=== PATIENT | female | born 1930 | race Caucasian/White ===

== ENCOUNTER 2017-08-22 10:49 | Emergency (ER) | payer MEDICARE ==
[~2017-08-22] VITALS: Ht 157.5 cm; Wt 56.0 kg
[~2017-08-22 10:49] MED LIST: ALEN70 PO; ALLO100T PO; ASPI81TA82 PO; BENEPOW5 PO; CALTTAB2 PO; CENTTAB9 PO; CHLO2TAB PO; FEXO180T PO; FISH1000 PO; FURO20TA PO; LEVO.1 PO; POTA25PA2 PO; PRESCAP5 PO; REST0.05 EACH EYE; VITA-13 PO; VITA10004 PO
[2017-08-22 11:03] VITALS: BP 168/72; PULSE 110; RESP 18; TEMP 99.9; O2SAT 98
--- NOTE | 2017-08-22 12:32 | PD ---
HPI Chief Complaint: Fever Time Seen by Provider: 12:29 Travel History International Travel<30 days: No Contact w/Intl Traveler<30days: No Traveled to known affect area: No History of Present Illness HPI This is an 87-year-old female with history of CLL who presents for evaluation of fevers and chills. Symptoms started this morning. She reports a maximum temperature of 101 this morning. She reports patchy redness to the lower extremities as well. She denies cough, congestion, shortness of breath, chest pain, abdominal pain, nausea, vomiting, diarrhea, constipation. She reports that she has had an excellent appetite. Her oncologist is Dr. Del Rosario. She is currently on weekly treatments of Rituxan which she last received 2 days ago. In addition she has a history of chronic kidney disease, TIA, hypertension , hypothyroidism, osteoarthritis, osteoporosis. PFSH Past Medical History Arthritis: Yes Cancer: Yes (LEUKEMIA) Cardiovascular Problems: Yes Chemotherapy: No Cerebrovascular Accident: Yes (TIA) Endocrine: Yes Genitourinary: No Immune Disorder: No Musculoskeletal: Yes Neurologic: Yes Psychiatric: No Reproductive: No Respiratory: No Radiation Therapy: No Thyroid Disease: Yes Past Surgical History Abdominal Surgery: Yes (LAP ROSY) Eye Surgery: Yes (RIGHT EYE CATARACT) Gynecologic Surgery: Yes (HYSTERECTOMY) Social History Tobacco Use: No Substance Use: No Allergies-Medications (Allergen,Severity, Reaction): Coded Allergies: penicillin G (Unverified Allergy, Severe, HIVES, SWELLING, 08/22/17) Reported Meds & Prescriptions Reported Meds & Active Scripts Active Levaquin (Levofloxacin) 500 Mg Tablet 500 Mg PO DAILY 6 Days Reported Acyclovir 200 Mg Cap 200 Mg PO DAILY Magnesium Oxide 250 Mg Tab 250 Mg PO DAILY Restasis Opth (Cyclosporine Opth) 0.05% Emul 1 Drop EACH EYE BID Miralax Powder (Polyethylene Glycol 3350 Powder) 17 Gm Powd 17 Gm PO HS Mix and dissolve one measuring cap-ful (17 grams) in water or juice. Lutein 20 Mg Cap 20 Mg PO DAILY Mucinex DM (Dextromethorphan-Guaifenesin) 30-600 Mg Tab 1 Tab PO BID PRN Fish Oil + D3 (Fish Oil-Cholecalciferol) 1,200-1,000 Mg-Unit Cap 1 Cap PO DAILY Florastor (Saccharomyces Boulardii) 250 Mg Cap 250 Mg PO DAILY Proair Hfa 8.5 GM Inh (Albuterol Sulfate) 90 Mcg/Act Aer 2 Puff INH Q4HR 108 mcg/actuation Metronidazole Topical 1 % Gel 1 Applic TOPICAL DAILY Flonase Nasal [place] (Fluticasone Nasal [place]) 50 Mcg/Act [place] 50 Mcg EACH NARE DAILY Mapap (Acetaminophen) 325 Mg Tab 650 Mg PO Q6HR PRN Klor-Con 10 (Potassium Chloride) 10 Meq Tab 10 Meq PO BID Furosemide 20 Mg Tab 20 Mg PO DAILY Synthroid (Levothyroxine Sodium) 100 Mcg Tab 100 Mcg PO DAILY Montelukast (Montelukast Sodium) 10 Mg Tab 10 Mg PO HS Duoneb (Ipratropium-Albuterol Neb) 0.5-2.5 Mg/3 Ml Neb 1 Nebule INH Q6HR Allopurinol 100 Mg Tab 100 Mg PO DAILY Ferrous Sulfate 325 Mg (65 Mg Iron) Tablet 325 Mg PO DAILY Alendronate (Alendronate Sodium) 70 Mg Tab 70 Mg PO Q7D Amlodipine (Amlodipine Besylate) 2.5 Mg Tab 2.5 Mg PO DAILY Review of Systems Except as stated in HPI: all other systems reviewed are Neg Physical Exam Narrative GENERAL: Pleasant well-developed well-nourished female no acute distress. SKIN: Warm and dry. Areas of ecchymosis/purpura noted to the lower extremities , right greater than left. Small skin tear to the anterior proximal right green. HEAD: Atraumatic. Normocephalic. EYES: Pupils equal and round. No scleral icterus. No injection or drainage. ENT: No nasal bleeding or discharge. Mucous membranes pink and moist. NECK: Trachea midline. No JVD. CARDIOVASCULAR: Regular rate and rhythm. No murmur appreciated. RESPIRATORY: No accessory muscle use. Clear to auscultation. Breath sounds equal bilaterally. GASTROINTESTINAL: Abdomen soft, non-tender, nondistended. Hepatic and splenic margins not palpable. MUSCULOSKELETAL: No obvious deformities. No clubbing. No cyanosis. No edema. NEUROLOGICAL: Awake and alert. No obvious cranial nerve deficits. Motor grossly within normal limits. Normal speech. PSYCHIATRIC: Appropriate mood and affect; insight and judgment normal. Data Data Last Documented VS Vital Signs Date Time Temp Pulse Resp B/P (MAP) Pulse Ox O2 Delivery O2 Flow Rate FiO2 08/22/17 13:40 107 20 131/61 (84) 98 Room Air 08/22/17 11:03 99.9 Orders Orders Sepsis Workup Initiated (08/22/17 ) Complete Blood Count With Diff (08/22/17 12:29) Comprehensive Metabolic Panel (08/22/17 12:29) Prothrombin Time / Inr (Pt) (08/22/17 12:29) Act Partial Throm Time (Ptt) (08/22/17 12:29) Lactic Acid Sepsis Protocol (08/22/17 12:29) Magnesium (Mg) (08/22/17 12:29) Urinalysis - C+S If Indicated (08/22/17 12:29) Blood Culture (08/22/17 12:29) Chest, Single Ap (08/22/17 12:29) Ecg Monitoring (08/22/17 12:29) Iv Access Insert/Monitor (08/22/17 12:29) Oximetry (08/22/17 12:29) Oxygen Administration (08/22/17 12:29) Sodium Chlor 0.9% 1000 Ml Inj (Ns 1000 M (08/22/17 12:37) Urine Culture (08/22/17 14:30) Ed Discharge Order (08/22/17 14:58) Levofloxacin (Levaquin) (08/22/17 15:00) Labs Laboratory Tests Test 08/22/17 12:45 08/22/17 14:30 White Blood Count 10.2 TH/MM3 Red Blood Count 3.40 MIL/MM3 Hemoglobin 11.9 GM/DL Hematocrit 35.2 % Mean Corpuscular Volume 103.7 FL Mean Corpuscular Hemoglobin 35.1 PG Mean Corpuscular Hemoglobin Concent 33.8 % Red Cell Distribution Width 17.8 % Platelet Count 41 TH/MM3 Mean Platelet Volume 8.9 FL Neutrophils (%) (Auto) 29.0 % Lymphocytes (%) (Auto) 65.1 % Monocytes (%) (Auto) 5.1 % Eosinophils (%) (Auto) 0.1 % Basophils (%) (Auto) 0.7 % Neutrophils # (Auto) 2.9 TH/MM3 Lymphocytes # (Auto) 6.6 TH/MM3 Monocytes # (Auto) 0.5 TH/MM3 Eosinophils # (Auto) 0.0 TH/MM3 Basophils # (Auto) 0.1 TH/MM3 CBC Comment AUTO DIFF Differential Total Cells Counted 100 Neutrophils % (Manual) 30 % Lymphocytes % 66 % Monocytes % 2 % Eosinophils % 1 % Neutrophils # (Manual) 3.1 TH/MM3 Differential Comment FINAL DIFF MANUAL Plasma Cells 1 % Platelet Estimate LOW Platelet Morphology Comment NORMAL Prothrombin Time 10.1 SEC Prothromb Time International Ratio 1.0 RATIO Activated Partial Thromboplast Time 19.6 SEC Blood Urea Nitrogen 21 MG/DL Creatinine 0.93 MG/DL Random Glucose 79 MG/DL Total Protein 6.8 GM/DL Albumin 3.1 GM/DL Calcium Level 8.4 MG/DL Magnesium Level 2.3 MG/DL Alkaline Phosphatase 87 U/L Aspartate Amino Transf (AST/SGOT) 21 U/L Alanine Aminotransferase (ALT/SGPT) 43 U/L Total Bilirubin 0.7 MG/DL Sodium Level 138 MEQ/L Potassium Level 4.6 MEQ/L Chloride Level 102 MEQ/L Carbon Dioxide Level 28.5 MEQ/L Anion Gap 8 MEQ/L Estimat Glomerular Filtration Rate 57 ML/MIN Lactic Acid Level 1.5 mmol/L Urine Color LIGHT-YELLOW Urine Turbidity CLEAR Urine pH 6.5 Urine Specific [place] 1.011 Urine Protein TRACE mg/dL Urine Glucose (UA) NEG mg/dL Urine Ketones NEG mg/dL Urine Occult Blood TRACE Urine Nitrite NEG Urine Bilirubin NEG Urine Urobilinogen LESS THAN 2.0 MG/DL Urine Leukocyte Esterase TRACE Urine RBC 2 /hpf Urine WBC 8 /hpf Urine Mucus FEW /lpf Microscopic Urinalysis Comment CATH-CULTURE IND MDM Medical Decision Making Medical Screen Exam Complete: Yes Emergency Medical Condition: Yes Medical Record Reviewed: Yes Differential Diagnosis Neutropenic fever, pneumonia, bacteremia, medication side effect, cellulitis, meningitis Narrative Course 87-year-old female with history of CLL on Rituxan presents with 1 day history of fever. She appears quite well and feels well. She does have ecchymosis on her lower extremities, right greater than left. She has no petechiae. She has no meningeal signs. Plan is for lab work, blood cultures. CBC reveals a WBC count of 10.2, platelet count of 41, 65% lymphocytes. CMP reveals a BUN of 21. Lactic acid is 1.5. Chest x-ray reveals mild compensated cardiomegaly otherwise unremarkable. The case was discussed with her oncologist Dr. Del Rosario reports improvement in her platelet count from last week when her platelet count was 24. He recommends oral Levaquin 500 mg for 1 week and he will follow-up with her next week. Discussed this with the patient who is agreeable. Diagnosis Primary Impression: Fever Additional Impression: Thrombocytopenia Referrals: Jacob Del Rosario MD Additional Instructions: Follow-up with Dr. Del Rosario next Sunday as scheduled. Medication as prescribed. Return for any acutely new or worsening symptoms. Med/Other Pt SpecificInfo: Prescription(s) given Scripts Levofloxacin (Levaquin) 500 Mg Tablet 500 MG PO DAILY for Infection for 6 Days, #6 TAB 0 Refills Prov: Cj Flores MD 08/22/17 Disposition: 01 DISCHARGE HOME Condition: Stable Alonso Eldridge Aug 22, 2017 12:32
[2017-08-22] MEDS ORDERED: SODIUM CHLOR 0.9% 1000 ML INJ 1,000 ML IV SCH (12:37)
[2017-08-22] MEDS ORDERED: LEVO.1 PO (13:09)
[2017-08-22] MEDS ORDERED: KLOR10TA PO (13:09)
[2017-08-22] MEDS ORDERED: ALLO100T PO (13:09)
[2017-08-22] MEDS ORDERED: FISHCAP4 PO (13:09)
[2017-08-22] MEDS ORDERED: HUMIBIDDM PO (13:09)
[2017-08-22] MEDS ORDERED: REST0.05 EACH EYE (13:09)
[2017-08-22] MEDS ORDERED: ALBUAER3 INH (13:09)
[2017-08-22] MEDS ORDERED: AMLO2.5T PO (13:09)
[2017-08-22] MEDS ORDERED: ACYC200C66 PO (13:09)
[2017-08-22] MEDS ORDERED: LUTE20CA PO (13:09)
[2017-08-22] MEDS ORDERED: MONT10TA4 PO (13:09)
[2017-08-22] MEDS ORDERED: IPRASOL INH (13:09)
[2017-08-22] MEDS ORDERED: FERR325T18 PO (13:09)
[2017-08-22] MEDS ORDERED: MAPA325T PO (13:09)
[2017-08-22] MEDS ORDERED: METR28.4 TOPICAL (13:09)
[2017-08-22] MEDS ORDERED: MAGN250T11 PO (13:09)
[2017-08-22] MEDS ORDERED: FURO20TA PO (13:09)
[2017-08-22] MEDS ORDERED: MIRA3350 PO (13:09)
[2017-08-22] MEDS ORDERED: FLOR250C PO (13:09)
[2017-08-22] MEDS ORDERED: FLUT1SPR5 EACH NARE (13:09)
[2017-08-22] MEDS ORDERED: ALEN1TAB48 PO (13:09)
[2017-08-22 13:10] VITALS: O2SAT 97
[2017-08-22 13:10] LABS: AUTOMATED NEUTROPHIL # 2.9 TH/MM3 (1.8-7.7); BASOPHIL # 0.1 TH/MM3 (0-0.2); BASOPHIL % 0.7 % (0.0-2.0); EOSINOPHIL % 0.1 % (0.0-4.0); HEMATOCRIT 35.2 % (35.0-46.0); HEMOGLOBIN 11.9 GM/DL (11.6-15.3); LYMPH % 65.1 % (9.0-44.0); LYMPHOCYTE # 6.6 TH/MM3 (1.0-4.8); MEAN CELL VOLUME 103.7 FL (80.0-100.0); MEAN CORPUSCULAR HEMOGLOBIN 35.1 PG (27.0-34.0); MEAN CORPUSCULAR HGB CONC 33.8 % (32.0-36.0); MEAN PLATELET VOLUME 8.9 FL (7.0-11.0); MONO % 5.1 % (0.0-8.0); MONOCYTE # 0.5 TH/MM3 (0-0.9); PLATELET COUNT 41 TH/MM3 (150-450); RED CELL DISTRIBUTION WIDTH 17.8 % (11.6-17.2); WHITE BLOOD COUNT 10.2 TH/MM3 (4.0-11.0)
[2017-08-22 13:18] LABS: PROTHROMBIN TIME - PATIENT 10.1 SEC (9.8-11.6)
--- NOTE | 2017-08-22 13:38 | RADRPT ---
EXAM DATE/TIME: 08/22/2017 12:50 [facility] COMPARISON: No previous studies available for comparison. INDICATIONS : Shortness of breath. MEDICAL HISTORY : None. SURGICAL HISTORY : None. ENCOUNTER: Initial ACUITY: 1 day PAIN SCORE: 0/10 LOCATION: Bilateral chest FINDINGS: A single view of the chest demonstrates the lungs to be symmetrically aerated without evidence of mas s, infiltrate or effusion. Mild compensated cardiomegaly Osseous structures are intact. CONCLUSION: Mild compensated cardiomegaly, no overt failure. Bernabe Alford MD FACR on August 22, 2017 at 13:35 Board Certified Radiologist. This report was verified electronically.
[2017-08-22 13:40] VITALS: BP 131/61; PULSE 107; RESP 20; O2SAT 98
[2017-08-22 13:42] LABS: ALKALINE PHOSPHATASE 87 U/L (45-117); TOTAL BILIRUBIN ADULT 0.7 MG/DL (0.2-1.0); TOTAL PROTEIN 6.8 GM/DL (6.4-8.2)
[2017-08-22 13:46] LABS: ALBUMIN 3.1 GM/DL (3.4-5.0); ALT (GPT) 43 U/L (10-53); AST (GOT) 21 U/L (15-37); BICARBONATE 28.5 MEQ/L (21.0-32.0); BLOOD UREA NITROGEN 21 MG/DL (7-18); CALCIUM 8.4 MG/DL (8.5-10.1); CHLORIDE 102 MEQ/L (98-107); CREATININE 0.93 MG/DL (0.50-1.00); GLOMERULAR FILTRATION RATE 57 ML/MIN (>89); GLUCOSE,RANDOM 79 MG/DL (74-106); MAGNESIUM 2.3 MG/DL (1.5-2.5); SODIUM (NA) 138 MEQ/L (136-145)
[2017-08-22 13:49] LABS: LYMPHOCYTES 66 % (9-44); MONOCYTES 2 % (0-8); NEUTROPHIL # MANUAL DIFF 3.1 TH/MM3 (1.8-7.7); PLASMA CELLS 1 % (0-0); POLYS (SEG NEUTROPHILS) 30 % (16-70)
[2017-08-22 14:44] LABS: BILIRUBIN, URINE NEG (NEG); BLOOD, URINE TRACE (NEG); GLUCOSE,URINE NEG (NEG); KETONE, URINE NEG (NEG); MUCUS URINE FEW /lpf (OCC); NITRITE,URINE NEG (NEG); PH, URINE 6.5 (5.0-8.5); URINE COLOR LIGHT-YELLOW (YELLW/STRAW); URINE LEUKOCYTE ESTERASE TRACE (NEG)
[2017-08-22] MEDS ORDERED: LEVA500T33 PO (14:59)
[2017-08-22] MEDS ORDERED: LEVOFLOXACIN 500 MG TAB PO ONE (15:00)
== END 2017-08-22 15:40 | disposition home or self-care (01) ==
LOC: NEPC 10:49
DX: R50.9 Fever, unspecified (principal); D69.6 Thrombocytopenia, unspecified; B96.20 Unspecified Escherichia coli [E. coli] as the cause of diseases classified elsewhere; C91.10 Chronic lymphocytic leukemia of B-cell type not having achieved remission; I51.7 Cardiomegaly; I12.9 Hypertensive chronic kidney disease with stage 1 through stage 4 chronic kidney disease, or unspecified chronic kidney disease; N18.9 Chronic kidney disease, unspecified; E03.9 Hypothyroidism, unspecified; Z86.73 Personal history of transient ischemic attack (TIA), and cerebral infarction without residual deficits
CPT/HCPCS: 71045; 80053; 81001; 83605; 83735; 85007; 85027; 85610; 85730; 87040; 87077; 87086; 87186; 99284; J7030

== ENCOUNTER 2017-10-05 10:33 | Inpatient (IN) | payer MEDICARE ==
[2017-10-05] VITALS (11 sets, daily range): BP systolic 114–170; BP diastolic 54–75; PULSE 89–108; RESP 19–34; TEMP 98–100.9; O2SAT 85–100
[~2017-10-05] VITALS: Ht 160 cm; Wt 54.2 kg
[2017-10-05] MEDS: SODIUM CHLOR 0.9% 1000 ML INJ 1,000 ML IV SCH ×3 (00:39→13:27)
[~2017-10-05 10:33] MED LIST changes: +ACYC200C66 PO; +ALBUAER3 INH; +ALEN1TAB48 PO; -ALEN70 PO; +AMLO2.5T PO; -ASPI81TA82 PO; -BENEPOW5 PO; -CALTTAB2 PO; -CENTTAB9 PO; -CHLO2TAB PO; +FERR325T18 PO; -FEXO180T PO; -FISH1000 PO; +FISHCAP4 PO; +FLOR250C PO; +FLUT1SPR5 EACH NARE; +HUMIBIDDM PO; +IPRASOL INH; +KLOR10TA PO; +LEVA500T33 PO; +LUTE20CA PO; +MAGN250T11 PO; +MAPA325T PO; +METR28.4 TOPICAL; +MIRA3350 PO; +MONT10TA4 PO; -POTA25PA2 PO; -PRESCAP5 PO; -VITA-13 PO; -VITA10004 PO
[2017-10-05] MEDS ORDERED: SODIUM CHLORIDE 0.9% FLUSH 10 ML FLUSH IVF PRN (11:15)
--- NOTE | 2017-10-05 11:24 | RADRPT ---
EXAM DATE: 10/05/2017 11:17 AM EDT AGE/SEX: 87 years / Female INDICATIONS: Short of breath, fever CLINICAL DATA: This is the patient's initial encounter. Patient reports that signs and symptoms have been present for 1 day and indicates a pain score of 0/10. MEDICAL/SURGICAL HISTORY: . CLL Cancer Just started chemotherapy None. COMPARISON: [facility] – [place], CHEST SINGLE AP, 08/22/2017. . FINDINGS: Diffuse bilateral airspace disease, worse on the left than the right primarily perihilar in distribut ion. No evidence of effusion. Cardiac contours are grossly stable. CONCLUSION: Bilateral infiltrates. Electronically signed by: Miguel Raygoza MD 10/05/2017 11:23 AM EDT
--- NOTE | 2017-10-05 11:42 | PD ---
HPI Chief Complaint: Respiratory Symptoms Time Seen by Provider: 11:05 Travel History International Travel<30 days: No Contact w/Intl Traveler<30days: No Traveled to known affect area: No History of Present Illness HPI The patient is a 87-year-old female who presents to the emergency department via private vehicle for shortness of breath of one weeks duration. The patient notes 1 week of shortness of breath, progressing, without any new cough, chest pain, or chest tightness. The patient does note her symptoms are slightly worse with exertion. She denies any orthopnea or paroxysmal nocturnal dyspnea. The patient denies any history of tobacco use, however, does state she was living with a smoker. She denies any known history of COPD, CHF, or pulmonary embolism/DVT. The patient is currently being treated for CLL by her senior php web developer, Dr. Del Rosario, with oral chemotherapy. The patient denies any significant lower extremity edema. Symptoms are moderate. She denies any current fever, chills, or sweats. PFSH Past Medical History Arthritis: Yes Cancer: Yes (LEUKEMIA) Cardiovascular Problems: Yes Chemotherapy: No Cerebrovascular Accident: Yes (TIA) Diminished Hearing: No Endocrine: Yes Genitourinary: No Hypertension: Yes Immune Disorder: No Musculoskeletal: Yes Neurologic: Yes Psychiatric: No Reproductive: No Respiratory: No Radiation Therapy: No Thyroid Disease: Yes Past Surgical History Abdominal Surgery: Yes (LAP ROSY) Cholecystectomy: Yes Eye Surgery: Yes (RIGHT EYE CATARACT) Gynecologic Surgery: Yes (HYSTERECTOMY) Hysterectomy: Yes Other Surgery: Yes (carotid artery endardectomy) Social History Alcohol Use: No Tobacco Use: No Substance Use: No Allergies-Medications (Allergen,Severity, Reaction): Coded Allergies: penicillin G (Unverified Allergy, Severe, HIVES, SWELLING, 10/05/17) Reported Meds & Prescriptions Reported Meds & Active Scripts Active Reported Restasis Opth (Cyclosporine Opth) 0.05% Emul 1 Drop EACH EYE BID Lutein 20 Mg Cap 20 Mg PO DAILY Fish Oil + D3 (Fish Oil-Cholecalciferol) 1,200-1,000 Mg-Unit Cap 1 Cap PO DAILY Proair Hfa 8.5 GM Inh (Albuterol Sulfate) 90 Mcg/Act Aer 2 Puff INH Q4HR PRN 108 mcg/actuation Flonase Nasal [place] (Fluticasone Nasal [place]) 50 Mcg/Act [place] 50 Mcg EACH NARE DAILY Mapap (Acetaminophen) 325 Mg Tab 650 Mg PO Q6HR PRN Klor-Con 10 (Potassium Chloride) 10 Meq Tab 10 Meq PO BID Furosemide 20 Mg Tab 20 Mg PO DAILY Synthroid (Levothyroxine Sodium) 100 Mcg Tab 100 Mcg PO DAILY Montelukast (Montelukast Sodium) 10 Mg Tab 10 Mg PO HS Allopurinol 100 Mg Tab 100 Mg PO DAILY Ferrous Sulfate 325 Mg (65 Mg Iron) Tablet 325 Mg PO DAILY Alendronate (Alendronate Sodium) 70 Mg Tab 70 Mg PO Q7D Amlodipine (Amlodipine Besylate) 2.5 Mg Tab 2.5 Mg PO DAILY Review of Systems Except as stated in HPI: all other systems reviewed are Neg General / Constitutional: No: Fever, Chills Cardiovascular: Positive: Dyspnea on exertion, No: Chest Pain or Discomfort Respiratory: Positive: Shortness of Breath, No: Cough, Orthopnea Gastrointestinal: No: Nausea, Vomiting, Abdominal Pain Musculoskeletal: No: Edema Neurologic: No: Dizziness Physical Exam Narrative GENERAL: Awake, alert, pleasant 87-year-old female who appears her stated age and is in respiratory distress. SKIN: Focused skin assessment warm/dry. HEAD: Atraumatic. Normocephalic. EYES: Pupils equal and round. No scleral icterus. No injection or drainage. ENT: No nasal bleeding or discharge. Mucous membranes pink and moist. NECK: Trachea midline. No JVD. CARDIOVASCULAR: Regular rate and rhythm. No murmur appreciated. Heart rate in the 90s. RESPIRATORY: No accessory muscle use. Scattered rhonchi bilaterally. GASTROINTESTINAL: Abdomen soft, non-tender, nondistended. No rebound tenderness. MUSCULOSKELETAL: No obvious deformities. No clubbing. No cyanosis. Trace edema lower extremities. NEUROLOGICAL: Awake and alert. No obvious cranial nerve deficits. Motor grossly within normal limits. Normal speech. PSYCHIATRIC: Appropriate mood and affect; insight and judgment normal. Data Data Last Documented VS Vital Signs Date Time Temp Pulse Resp B/P (MAP) Pulse Ox O2 Delivery O2 Flow Rate FiO2 10/05/17 13:20 93 Nasal Cannula 3.00 10/05/17 13:13 96 34 131/58 (82) 10/05/17 11:07 98.7 Orders Orders Complete Blood Count With Diff (10/05/17 11:05) Comprehensive Metabolic Panel (10/05/17 11:05) B-Type Natriuretic Peptide (10/05/17 11:05) Act Partial Throm Time (Ptt) (10/05/17 11:05) Prothrombin Time / Inr (Pt) (10/05/17 11:05) Magnesium (Mg) (10/05/17 11:05) Ckmb (Isoenzyme) Profile (10/05/17 11:05) Troponin I (10/05/17 11:05) Arterial Blood Gas (Abg) (10/05/17 11:05) Influenzae A/B Antigen (10/05/17 11:05) Blood Culture (10/05/17 11:05) Iv Access Insert/Monitor (10/05/17 11:05) Electrocardiogram (10/05/17 11:05) Ecg Monitoring (10/05/17 11:05) Oximetry (10/05/17 11:05) Oxygen Administration (10/05/17 11:05) Chest, Single Ap (10/05/17 11:05) Sodium Chloride 0.9% Flush (Ns Flush) (10/05/17 11:15) Lactic Acid (10/05/17 11:05) Cefepime Inj (Maxipime Inj) (10/05/17 13:00) Azithromycin Inj (Zithromax Inj) (10/05/17 13:00) Sodium Chlor 0.9% 1000 Ml Inj (Ns 1000 M (10/05/17 13:00) Albuterol-Ipratropium Neb (Duoneb Neb) (10/05/17 13:00) Admit Order (Ed Use Only) (10/05/17 13:32) Admit To Inpatient (10/05/17 ) Vital Signs (Adult) Q4H (10/05/17 13:27) Activity Oob With Assistance (10/05/17 13:27) Websphere Commerce Architect / Telemetry .CONTINUOUS (10/05/17 13:27) Intake + Output ASHU.QSHIFT (10/05/17 13:27) Sodium Chlor 0.9% 1000 Ml Inj (Ns 1000 M (10/05/17 13:27) Sodium Chloride 0.9% Flush (Ns Flush) (10/05/17 13:30) Sodium Chloride 0.9% Flush (Ns Flush) (10/05/17 21:00) Acetaminophen (Tylenol) (10/05/17 13:30) Metoclopramide Inj (Reglan Inj) (10/05/17 13:30) Comprehensive Metabolic Panel (10/06/17 06:00) Complete Blood Count With Diff (10/06/17 06:00) Resp Oxygen Francisco C Titrat 1-4 L (10/05/17 ) Pt Request For Service (10/05/17 13:27) Case Management Consult (10/05/17 13:27) Heparin Inj (Heparin Inj) (10/05/17 13:30) Scd Bilateral/Knee High ASHU.BID (10/05/17 13:27) Slim Bilateral/Knee High ASHU.QSHIFT (10/05/17 13:27) Naloxone Inj (Narcan Inj) (10/05/17 13:30) Docusate Sodium-Senna (Kailee-Colace) (10/05/17 21:00) Magnesium Hydroxide Liq (Milk Of Magnesi (10/05/17 13:30) Sennosides (Senokot) (10/05/17 13:30) Bisacodyl Supp (Dulcolax Supp) (10/05/17 13:30) Lactulose Liq (Lactulose Liq) (10/05/17 13:30) Inpatient Certification (10/05/17 ) Azithromycin Inj (Zithromax Inj) (10/05/17 13:30) Cefepime Inj (Maxipime Inj) (10/05/17 13:30) Labs Laboratory Tests Test 10/05/17 11:16 10/05/17 11:25 Blood Gas Puncture Site LT RADIAL Blood Gas Patient Temperature 98.6 Blood Gas HCO3 24 mmol/L Blood Gas Base Excess 0.6 mmol/L Blood Gas Oxygen Saturation 77 % Arterial Blood pH 7.48 Arterial Blood Partial Pressure CO2 32 mmHg Arterial Blood Partial Pressure O2 44 mmHG Arterial Blood Oxygen Content 9.0 Vol % Arterial Blood Carboxyhemoglobin 2.3 % Arterial Blood Methemoglobin 0.3 % Blood Gas Hemoglobin 8.2 G/DL Blood Gas Inspired Oxygen 21 % White Blood Count 41.7 TH/MM3 Red Blood Count 2.54 MIL/MM3 Hemoglobin 8.3 GM/DL Hematocrit 26.0 % Mean Corpuscular Volume 102.2 FL Mean Corpuscular Hemoglobin 32.7 PG Mean Corpuscular Hemoglobin Concent 32.0 % Red Cell Distribution Width 18.0 % Platelet Count 69 TH/MM3 Mean Platelet Volume 9.2 FL CBC Comment AUTO DIFF Differential Total Cells Counted 100 Neutrophils % (Manual) 17 % Lymphocytes % 81 % Monocytes % 2 % Neutrophils # (Manual) 7.1 TH/MM3 Differential Comment FINAL DIFF MANUAL Smudge Cells PRESENT Platelet Estimate LOW Platelet Morphology Comment NORMAL Prothrombin Time 10.3 SEC Prothromb Time International Ratio 1.0 RATIO Activated Partial Thromboplast Time 21.5 SEC Blood Urea Nitrogen 18 MG/DL Creatinine 1.15 MG/DL Random Glucose 89 MG/DL Total Protein 6.8 GM/DL Albumin 2.9 GM/DL Calcium Level 9.1 MG/DL Magnesium Level 2.4 MG/DL Alkaline Phosphatase 77 U/L Aspartate Amino Transf (AST/SGOT) 31 U/L Alanine Aminotransferase (ALT/SGPT) 16 U/L Total Bilirubin 0.4 MG/DL Sodium Level 140 MEQ/L Potassium Level 4.3 MEQ/L Chloride Level 106 MEQ/L Carbon Dioxide Level 24.1 MEQ/L Anion Gap 10 MEQ/L Estimat Glomerular Filtration Rate 44 ML/MIN Lactic Acid Level 1.4 mmol/L Total Creatine Kinase 32 U/L Troponin I LESS THAN 0.02 NG/ML B-Type Natriuretic Peptide 54 PG/ML MDM Medical Decision Making Medical Screen Exam Complete: Yes Emergency Medical Condition: Yes Medical Record Reviewed: Yes Interpretation(s) EKG reveals normal sinus rhythm with a rate of 98. Nonspecific T-wave changes. Last Impressions Chest X-Ray 10/05/17 1105 Signed Impressions: CONCLUSION: Bilateral infiltrates. Laboratory Tests Test 10/05/17 11:16 10/05/17 11:25 Blood Gas Puncture Site LT RADIAL Blood Gas Patient Temperature 98.6 Blood Gas HCO3 24 mmol/L Blood Gas Base Excess 0.6 mmol/L Blood Gas Oxygen Saturation 77 % Arterial Blood pH 7.48 Arterial Blood Partial Pressure CO2 32 mmHg Arterial Blood Partial Pressure O2 44 mmHG Arterial Blood Oxygen Content 9.0 Vol % Arterial Blood Carboxyhemoglobin 2.3 % Arterial Blood Methemoglobin 0.3 % Blood Gas Hemoglobin 8.2 G/DL Blood Gas Inspired Oxygen 21 % White Blood Count 41.7 TH/MM3 Red Blood Count 2.54 MIL/MM3 Hemoglobin 8.3 GM/DL Hematocrit 26.0 % Mean Corpuscular Volume 102.2 FL Mean Corpuscular Hemoglobin 32.7 PG Mean Corpuscular Hemoglobin Concent 32.0 % Red Cell Distribution Width 18.0 % Platelet Count 69 TH/MM3 Mean Platelet Volume 9.2 FL CBC Comment AUTO DIFF Differential Total Cells Counted 100 Neutrophils % (Manual) 17 % Lymphocytes % 81 % Monocytes % 2 % Neutrophils # (Manual) 7.1 TH/MM3 Differential Comment FINAL DIFF MANUAL Smudge Cells PRESENT Platelet Estimate LOW Platelet Morphology Comment NORMAL Prothrombin Time 10.3 SEC Prothromb Time International Ratio 1.0 RATIO Activated Partial Thromboplast Time 21.5 SEC Blood Urea Nitrogen 18 MG/DL Creatinine 1.15 MG/DL Random Glucose 89 MG/DL Total Protein 6.8 GM/DL Albumin 2.9 GM/DL Calcium Level 9.1 MG/DL Magnesium Level 2.4 MG/DL Alkaline Phosphatase 77 U/L Aspartate Amino Transf (AST/SGOT) 31 U/L Alanine Aminotransferase (ALT/SGPT) 16 U/L Total Bilirubin 0.4 MG/DL Sodium Level 140 MEQ/L Potassium Level 4.3 MEQ/L Chloride Level 106 MEQ/L Carbon Dioxide Level 24.1 MEQ/L Anion Gap 10 MEQ/L Estimat Glomerular Filtration Rate 44 ML/MIN Lactic Acid Level 1.4 mmol/L Total Creatine Kinase 32 U/L Troponin I LESS THAN 0.02 NG/ML B-Type Natriuretic Peptide 54 PG/ML Differential Diagnosis Differential diagnosis includes hypoxia, symptomatic anemia, sepsis, lactic acidosis, pneumonia, pleural effusion, medication side effect, pulmonary embolism, cardiomyopathy, congestive heart failure. Narrative Course IV was established, labs are drawn and sent, and the patient was placed on cardiac telemetry monitoring and continuous pulse oximetry monitoring. EKG was ordered and interpreted. Chest x-ray is obtained. The patient's O2 saturation on room air was 88%, therefore, the patient was placed on oxygen nasal cannula 2 L. Chest x-ray reveals bilateral infiltrates. BNP is within normal limits, suggest pneumonia more than pulmonary edema. ABG reveals O2 sat of 77% on room air, patient does elevate into the low 90s on oxygen via nasal cannula. The patient was administered cefepime, Zithromax, normal saline at 100 mL's per hour. The patient will be admitted to the on-call medical service. White count was elevated at 41, previous white count was normal, however, patient does have CLL. Sepsis Criteria SIRS Criteria (2 or more): Heart rate over 90, WBC > 05465, < 4000 or > 10% bands Criteria Outcome: Meets sepsis criteria Physician Communication Physician Communication The on-call medical service was paged for admission. I discussed the patient with Dr. Guillermo who agrees with admission. Diagnosis Primary Impression: Bilateral pneumonia Qualified Codes: J18.9 - Pneumonia, unspecified organism Additional Impression: Hypoxia Admitting Information Admitting Physician Requests: Admit Condition: Stable Kj Gomes MD October 05, 2017 11:42
[2017-10-05 11:51] LABS: HEMOGLOBIN 8.3 GM/DL (11.6-15.3); MEAN CELL VOLUME 102.2 FL (80.0-100.0); MEAN CORPUSCULAR HEMOGLOBIN 32.7 PG (27.0-34.0); MEAN PLATELET VOLUME 9.2 FL (7.0-11.0); PLATELET COUNT 69 TH/MM3 (150-450); RED BLOOD COUNT 2.54 MIL/MM3 (4.00-5.30); WHITE BLOOD COUNT 41.7 TH/MM3 (4.0-11.0)
[2017-10-05 11:59] LABS: PROTHROMBIN TIME - PATIENT 10.3 SEC (9.8-11.6)
[2017-10-05 12:04] LABS: ALBUMIN 2.9 GM/DL (3.4-5.0); ALT (GPT) 16 U/L (10-53); AST (GOT) 31 U/L (15-37); BICARBONATE 24.1 MEQ/L (21.0-32.0); BLOOD UREA NITROGEN 18 MG/DL (7-18); CALCIUM 9.1 MG/DL (8.5-10.1); CHLORIDE 106 MEQ/L (98-107); CREATININE 1.15 MG/DL (0.50-1.00); GLOMERULAR FILTRATION RATE 44 ML/MIN (>89); GLUCOSE,RANDOM 89 MG/DL (74-106); MAGNESIUM 2.4 MG/DL (1.5-2.5); SODIUM (NA) 140 MEQ/L (136-145)
[2017-10-05 12:09] LABS: ALKALINE PHOSPHATASE 77 U/L (45-117); TOTAL BILIRUBIN ADULT 0.4 MG/DL (0.2-1.0); TOTAL PROTEIN 6.8 GM/DL (6.4-8.2); TROPONIN I LESS THAN 0.02 NG/ML (0.02-0.05)
[2017-10-05 12:40] LABS: LYMPHOCYTES 81 % (9-44); MONOCYTES 2 % (0-8); NEUTROPHIL # MANUAL DIFF 7.1 TH/MM3 (1.8-7.7); POLYS (SEG NEUTROPHILS) 17 % (16-70)
[2017-10-05 12:42] LABS: SMUDGE CELLS PRESENT PRESENT
[2017-10-05] MEDS ORDERED: AZITHROMYCIN INJ 500 MG in SODIUM CHLOR 0.9% 250 ML INJ 250 ML IV ONE (13:00)
[2017-10-05] MEDS ORDERED: CEFEPIME INJ 2,000 MG in SODIUM CHLORIDE 0.9% INJ 100 ML IV ONE (13:00)
[2017-10-05] MEDS ORDERED: RESP: ALBUTEROL 2.5 MG/IPRATROPIUM 0.5 MG NEB (SCH) NEB ONE (13:00)
[2017-10-05] MEDS ORDERED: BISACODYL 10 MG SUPP RECTAL PRN (13:30)
[2017-10-05] MEDS ORDERED: SENNOSIDES 8.6 MG TAB PO PRN (13:30)
[2017-10-05] MEDS ORDERED: METOCLOPRAMIDE HCL 10 MG/2 ML VIAL IV PUSH PRN (13:30)
[2017-10-05] MEDS ORDERED: ACETAMINOPHEN 325 MG TAB PO PRN (13:30)
[2017-10-05] MEDS ORDERED: LACTULOSE SYRUP 20 GM/30 ML CUP PO PRN (13:30)
[2017-10-05] MEDS ORDERED: MAGNESIUM HYDROXIDE SUSP 30 ML CUP PO PRN (13:30)
[2017-10-05] MEDS ORDERED: SODIUM CHLORIDE 0.9% FLUSH 10 ML FLUSH IV FLUSH PRN (13:30)
[2017-10-05] MEDS ORDERED: NALOXONE HCL 0.4 MG/ML AMP IV PUSH PRN (13:30)
[2017-10-05] MEDS ORDERED: RESP: ALBUTEROL 2.5 MG/IPRATROPIUM 0.5 MG NEB (PRN) NEB (13:45)
[2017-10-05] MEDS: HEPARIN SODIUM - SQ 10,000 UNITS/ML VIAL SQ SCH ×2 (13:52→21:44)
[2017-10-05] MEDS: RESP: ALBUTEROL 2.5 MG/IPRATROPIUM 0.5 MG NEB (SCH) NEB (15:31)
--- NOTE | 2017-10-05 16:47 | PD.PN.STU ---
Subjective Remarks History of Present Illness 87-year-old female presented to the ED for shortness of breath for the past week. Shortness of breath has been progressive and she has had a mild, dry cough without chest pain or chest tightness. She has a mild runny nose but takes allergy medications regularly. Symptoms are slightly worse with exertion. She also has had a fever and chills with episodes of sweating. She denies orthopnea or paroxysmal nocturnal dyspnea. She has no history of tobacco use, however she lives with a smoker. She denies any known history of COPD, CHF, or PE/ DVT. She is currently being treated for CLL with oral chemotherapy by her physician obstetrician, Dr. Del Rosario. She denies any sore throat, nasal congestion, lower extremity edema, dizziness, syncope, palpitations, abdominal pain, nausea, vomiting. She started a new chemotherapy pill (Zydelig) on 09/25/17 and it was discontinued 10/03/17 due to development of fever and chills. Dyspnea and chills have worsened since stopping the medication. Past Medical History CLL (dx 1994) HTN CKD Osteoarthritis Osteoporosis Hypothyroidism Peripheral vascular disease TIA Cellulitis RLE 2017 Medications: Amlodipine 2.5mg daily Synthroid 100 mcg daily Allopurinol 100 mg daily Alendronate 70 mg q7 days Fish Oil-Cholecalciferol 9445-0204 mg daily Restasis 0.05% Furosemide 20 mg daily Iron 325mg daily KCl 10 meq bid FeroSul Elixir Magnesium 250 mg daily Montelukast 10mg ProAir HFA Flonase Acetaminophen prn Lutein 20mg daily MiraLax PRN Past Surgical History Cholecystectomy 1999 R cataract removal 2016 Complete hysterecomy 1977 R carotid endarterectomy Social History Denies EtOH, tobacco, illicit drug use Mandaen - denies blood products Allergies: Ibrutinib - skin rashes/hives Integra - skin rashes/hives Losartan Potassium - skin rashes/hives Niacin Penicillin V Objective Vitals Vital Signs Date Time Temp Pulse Resp B/P (MAP) Pulse Ox O2 Delivery O2 Flow Rate FiO2 10/05/17 15:32 95 Non-Rebreather 15.00 10/05/17 14:55 99.2 10/05/17 13:20 93 Nasal Cannula 3.00 10/05/17 13:13 96 34 131/58 (82) 92 3.00 10/05/17 11:07 98.7 97 25 141/75 (97) 93 Nasal Cannula 2.00 10/05/17 11:07 92 Nasal Cannula 2.00 10/05/17 11:04 101 25 87 Room Air 10/05/17 10:42 98.0 108 22 143/66 (91) 85 I/O 10/04/17 10/04/17 10/04/17 10/05/17 10/05/17 10/05/17 07:00 15:00 23:00 07:00 15:00 23:00 Intake Total 350 ml Output Total 50 ml Balance 300 ml Intake IV Total 350 ml Output Urine Total 50 ml # Voids 1 Result Diagram: 10/05/17 1125 10/05/17 1125 Objective Remarks Laboratory Tests Test 10/05/17 11:16 10/05/17 11:25 Blood Gas Puncture Site LT RADIAL Blood Gas Patient Temperature 98.6 Blood Gas HCO3 24 mmol/L Blood Gas Base Excess 0.6 mmol/L Blood Gas Oxygen Saturation 77 % Arterial Blood pH 7.48 Arterial Blood Partial Pressure CO2 32 mmHg Arterial Blood Partial Pressure O2 44 mmHG Arterial Blood Oxygen Content 9.0 Vol % Arterial Blood Carboxyhemoglobin 2.3 % Arterial Blood Methemoglobin 0.3 % Blood Gas Hemoglobin 8.2 G/DL Blood Gas Inspired Oxygen 21 % White Blood Count 41.7 TH/MM3 Red Blood Count 2.54 MIL/MM3 Hemoglobin 8.3 GM/DL Hematocrit 26.0 % Mean Corpuscular Volume 102.2 FL Mean Corpuscular Hemoglobin 32.7 PG Mean Corpuscular Hemoglobin Concent 32.0 % Red Cell Distribution Width 18.0 % Platelet Count 69 TH/MM3 Mean Platelet Volume 9.2 FL CBC Comment AUTO DIFF Differential Total Cells Counted 100 Neutrophils % (Manual) 17 % Lymphocytes % 81 % Monocytes % 2 % Neutrophils # (Manual) 7.1 TH/MM3 Differential Comment FINAL DIFF MANUAL Smudge Cells PRESENT Platelet Estimate LOW Platelet Morphology Comment NORMAL Prothrombin Time 10.3 SEC Prothromb Time International Ratio 1.0 RATIO Activated Partial Thromboplast Time 21.5 SEC Blood Urea Nitrogen 18 MG/DL Creatinine 1.15 MG/DL Random Glucose 89 MG/DL Total Protein 6.8 GM/DL Albumin 2.9 GM/DL Calcium Level 9.1 MG/DL Magnesium Level 2.4 MG/DL Alkaline Phosphatase 77 U/L Aspartate Amino Transf (AST/SGOT) 31 U/L Alanine Aminotransferase (ALT/SGPT) 16 U/L Total Bilirubin 0.4 MG/DL Sodium Level 140 MEQ/L Potassium Level 4.3 MEQ/L Chloride Level 106 MEQ/L Carbon Dioxide Level 24.1 MEQ/L Anion Gap 10 MEQ/L Estimat Glomerular Filtration Rate 44 ML/MIN Lactic Acid Level 1.4 mmol/L Total Creatine Kinase 32 U/L Troponin I LESS THAN 0.02 NG/ML B-Type Natriuretic Peptide 54 PG/ML Last 24 hours Impressions Chest X-Ray 10/05/17 1105 Signed Impressions: CONCLUSION: Bilateral infiltrates. EXAM: GENERAL: Well-developed well-nourished elderly female on non-rebreather mask with respiratory distress. She is restless. SKIN: Warm and moist HEAD: Atraumatic. Normocephalic. EYES: Pupils equal and round. No scleral icterus. No injection or drainage. ENT: Mucous membranes pink and moist. NECK: Trachea midline. No JVD. CARDIOVASCULAR: tachycardic with regular rhythm, 1/6 systolic murmur without rubs, gallops. Normal S1/S2. RESPIRATORY: No accessory muscle use. Scattered crackles and rhonchi bilaterally. No wheezes. GASTROINTESTINAL: Abdomen soft, non-tender, non-distended. BS present in all quadrants. MUSCULOSKELETAL: No obvious deformities. No clubbing. No cyanosis. No edema. NEUROLOGICAL: Awake and alert. CN II-XII grossly intact. Motor grossly within normal limits. Normal speech. PSYCHIATRIC: Appropriate mood and affect; insight and judgment normal. A/P Assessment and Plan Pt presents with shortness of breath and bilateral infiltrates on CXR, consistent with pneumonia. She meets sepsis criteria with HR >90 and WBC > 08800. She is visibly short of breath and appears restless in bed. 1. Sepsis Meets sepsis criteria with HR >90, WBC >12 Source of infection via bilateral infiltrates on CXR Lactic acid 1.4 EKG with normal sinus rhythm and rate 98. Nonspecific T-wave changes. Monitor vitals q4hr Repeat CMP, CBC in AM Hold home medication furosemide to avoid hypotension 2. Pneumonia Placed on telemetry monitoring and continuous pulse oximetry monitoring. CXR with bilateral infiltrates BNP wnl, suggesting pneumonia more than pulmonary edema. ABG revealed likely respiratory acidosis with O2 sat of 77% on room air, 84% on nasal cannula Pt placed on oxygen nasal cannula 2 L. Now on non-rebreather mask WBC elevated at 41, previous white count was normal at 10.2 on 08/22/17 Pending blood cultures, urine pneumococcal Ag and urine legionella Ag Pending sputum gram stain and culture Influenza A&B Ags negative from nasal aspirate Ordered IV cefepime, azithromycin Ordered duonebs scheduled and prn Consult ID due to pneumonia with immune compromise 3. Chronic lymphocytic leukemia WBC 41, Hb 8.3, PLT 60 Previous WBC and Hb were normal as of 08/22/17 Previous PLT 41 Continue ferrous sulfate home medication Consult hematology/oncology - pt known to Dr. Del Rosario Continue home meds - levothyroxine, amolodipine, allopurinol, fish oil vitamin D , restasis, montelukast, flonase DVT prophylaxis with SCDs and subcutaneous heparin Case discussed at length with Miss Gigi Larson MS IV . Note above reviewed and agree with above. Gigi Larson M3 October 05, 2017 16:47 Renu Guillermo MD October 05, 2017 19:05
[2017-10-05] MEDS ORDERED: methylPREDNISolone SOD SUCC 40 MG/1 ML VIAL IV PUSH ONE (17:30)
[2017-10-05] MEDS ORDERED: MORPHINE SULFATE 4 MG/ML INJ IV PUSH ONE (17:30)
[2017-10-05] MEDS: ALPRAZolam 0.5 MG TAB PO PRN (17:32)
--- NOTE | 2017-10-05 18:28 | EKG ---
Date Performed: 10/05/2017 Time Performed: 11:15:40 PTAGE: 87 years EKG: Sinus rhythm NONSPECIFIC ST & T-WAVE ABNORMALITY Since previous tracing, no significant change noted BORDERLINE E CG PREVIOUS TRACING : 10/05/2011 11.08 DOCTOR: Analisa Keys Interpretating Date/Time 10/05/2017 18:26:35
--- NOTE | 2017-10-05 18:41 | HHI.HP ---
HPI Service [facility] Primary Care Physician No Primary Care Physician Admission Diagnosis Bilateral pneumonia, hypoxia, SIRS, leukocytosis Diagnoses: Chief Complaint: sob Travel History International Travel<30 Days: No Contact w/Intl Traveler <30 Da: No Traveled to Known Affected Are: No History of Present Illness 87-year-old female with multiple medical problems, presented to the ED for shortness of breath for the past week. Shortness of breath has been progressive and she has had a mild, dry cough without chest pain or chest tightness. She has a mild runny nose but takes allergy medications regularly. Symptoms are slightly worse with exertion. She also has had a fever and chills with episodes of sweating. She denies orthopnea or paroxysmal nocturnal dyspnea. She has no history of tobacco use, however she lives with a smoker. She denies any known history of COPD, CHF, or PE/ DVT. She is currently being treated for CLL with oral chemotherapy by her corporate vp advertising & online, Dr. Del Rosario. She denies any sore throat, nasal congestion, lower extremity edema, dizziness, syncope, palpitations, abdominal pain, nausea, vomiting. Has a mild cough but the main complaint is sob and fever ( at home). She started a new chemotherapy pill (Zydelig) on 09/25/17 and it was discontinued 10/03/17 due to development of fever and chills. Dyspnea and chills have worsened since stopping the medication. Review of Systems Except as stated in HPI: all other systems reviewed are Neg Past Family Social History Past Medical History CLL (dx 1994) HTN CKD Osteoarthritis Osteoporosis Hypothyroidism Peripheral vascular disease TIA Cellulitis RLE 2017 Past Surgical History Cholecystectomy 1999 R cataract removal 2016 Complete hysterecomy 1976 R carotid endarterectomy Reported Medications Reported Meds & Active Scripts Active Reported Restasis Opth (Cyclosporine Opth) 0.05% Emul 1 Drop EACH EYE BID Lutein 20 Mg Cap 20 Mg PO DAILY Fish Oil + D3 (Fish Oil-Cholecalciferol) 1,200-1,000 Mg-Unit Cap 1 Cap PO DAILY Proair Hfa 8.5 GM Inh (Albuterol Sulfate) 90 Mcg/Act Aer 2 Puff INH Q4HR PRN 108 mcg/actuation Flonase Nasal Austin (Fluticasone Nasal [place]) 50 Mcg/Act [place] 50 Mcg EACH NARE DAILY Mapap (Acetaminophen) 325 Mg Tab 650 Mg PO Q6HR PRN Klor-Con 10 (Potassium Chloride) 10 Meq Tab 10 Meq PO BID Furosemide 20 Mg Tab 20 Mg PO DAILY Synthroid (Levothyroxine Sodium) 100 Mcg Tab 100 Mcg PO DAILY Montelukast (Montelukast Sodium) 10 Mg Tab 10 Mg PO HS Allopurinol 100 Mg Tab 100 Mg PO DAILY Ferrous Sulfate 325 Mg (65 Mg Iron) Tablet 325 Mg PO DAILY Alendronate (Alendronate Sodium) 70 Mg Tab 70 Mg PO Q7D Amlodipine (Amlodipine Besylate) 2.5 Mg Tab 2.5 Mg PO DAILY Allergies: Coded Allergies: penicillin G (Unverified Allergy, Severe, HIVES, SWELLING, 10/05/17) Family History No h/o cancer Social History Denies EtOH, tobacco, illicit drug use Episcopalian - denies blood products Physical Exam Vital Signs Vital Signs Date Time Temp Pulse Resp B/P (MAP) Pulse Ox O2 Delivery O2 Flow Rate FiO2 10/05/17 16:51 107 19 170/74 (106) 100 Non-Rebreather 15.00 10/05/17 16:50 100 Non-Rebreather 15.00 10/05/17 15:32 95 Non-Rebreather 15.00 10/05/17 14:55 99.2 10/05/17 13:20 93 Nasal Cannula 3.00 10/05/17 13:13 96 34 131/58 (82) 92 3.00 10/05/17 11:07 98.7 97 25 141/75 (97) 93 Nasal Cannula 2.00 10/05/17 11:07 92 Nasal Cannula 2.00 10/05/17 11:04 101 25 87 Room Air 10/05/17 10:42 98.0 108 22 143/66 (91) 85 Physical Exam GENERAL: Elderly female , anxious, well-developed well-nourished, in some respiratory distress, currently on non-rebreather mask. SKIN: No rashes, ecchymoses or lesions. Cool and dry. HEAD: Atraumatic. Normocephalic. No temporal or scalp tenderness. EYES: Pupils equal round and reactive. Extraocular motions intact. No scleral icterus. No injection or drainage. ENT: Nose without bleeding, purulent drainage or septal hematoma. Throat without erythema, tonsillar hypertrophy or exudate. Uvula midline. Airway patent. NECK: Trachea midline. No JVD or lymphadenopathy. Supple, nontender, no meningeal signs. CARDIOVASCULAR: Tachycardic with regular rhythm, 1/6 systolic murmur without rubs, gallops. Normal S1/S2. RESPIRATORY: SOB on NRM. No accessory muscle use. Scattered crackles and rhonchi bilaterally. No wheezes. GASTROINTESTINAL: Abdomen soft, non-tender, nondistended. No hepato-splenomegaly , or palpable masses. No guarding. MUSCULOSKELETAL: Extremities without clubbing, cyanosis, or edema. No joint tenderness, effusion, or edema noted. No calf tenderness. Negative Homans sign bilaterally. NEUROLOGICAL: Awake and alert. Cranial nerves II through XII intact. Motor and sensory grossly within normal limits. Five out of 5 muscle strength in all muscle groups. Normal speech. Laboratory Laboratory Tests Test 10/05/17 11:16 10/05/17 11:25 10/05/17 16:35 Blood Gas Puncture Site LT RADIAL LT RADIAL Blood Gas Patient Temperature 98.6 98.6 Blood Gas HCO3 24 23 Blood Gas Base Excess 0.6 -0.6 Blood Gas Oxygen Saturation 77 84 Arterial Blood pH 7.48 7.48 Arterial Blood Partial Pressure CO2 32 31 Arterial Blood Partial Pressure O2 44 51 Arterial Blood Oxygen Content 9.0 11.3 Arterial Blood Carboxyhemoglobin 2.3 1.9 Arterial Blood Methemoglobin 0.3 0.2 Blood Gas Hemoglobin 8.2 9.6 Blood Gas Inspired Oxygen 21 White Blood Count 41.7 Red Blood Count 2.54 Hemoglobin 8.3 Hematocrit 26.0 Mean Corpuscular Volume 102.2 Mean Corpuscular Hemoglobin 32.7 Mean Corpuscular Hemoglobin Concent 32.0 Red Cell Distribution Width 18.0 Platelet Count 69 Mean Platelet Volume 9.2 CBC Comment AUTO DIFF Differential Total Cells Counted 100 Neutrophils % (Manual) 17 Lymphocytes % 81 Monocytes % 2 Neutrophils # (Manual) 7.1 Differential Comment FINAL DIFF MANUAL Smudge Cells PRESENT Platelet Estimate LOW Platelet Morphology Comment NORMAL Prothrombin Time 10.3 Prothromb Time International Ratio 1.0 Activated Partial Thromboplast Time 21.5 Blood Urea Nitrogen 18 Creatinine 1.15 Random Glucose 89 Total Protein 6.8 Albumin 2.9 Calcium Level 9.1 Magnesium Level 2.4 Alkaline Phosphatase 77 Aspartate Amino Transf (AST/SGOT) 31 Alanine Aminotransferase (ALT/SGPT) 16 Total Bilirubin 0.4 Sodium Level 140 Potassium Level 4.3 Chloride Level 106 Carbon Dioxide Level 24.1 Anion Gap 10 Estimat Glomerular Filtration Rate 44 Lactic Acid Level 1.4 Total Creatine Kinase 32 Troponin I LESS THAN 0.02 B-Type Natriuretic Peptide 54 Oxygen Delivery Device NASAL CANNULA Blood Gas Liter Flow 5 Date/Time Source Procedure Growth Status 10/05/17 11:25 Blood Peripheral Aerobic Blood Culture Pending Received 10/05/17 11:25 Blood Peripheral Anaerobic Blood Culture Pending Received 10/05/17 11:15 Nasal Aspirate Influenza Types A,B Antigen (JORGE) - Final NEGATIVE FOR FLU A AND B ANTIGEN.... Complete 10/05/17 16:35 Urine Random Urine Legionella Antigen Pending Received 10/05/17 16:35 Urine Random Urine Streptococcus pneumoniae Antigen (M Pending Received Result Diagram: 10/05/17 1125 10/05/17 1125 Imaging Last Impressions Chest X-Ray 10/05/17 1105 Signed Impressions: CONCLUSION: Bilateral infiltrates. Caprini VTE Risk Assessment Caprini VTE Risk Assessment: Mod/High Risk (score >= 2) Caprini Risk Assessment Model Point Value = 1 Point Value = 2 Point Value = 3 Point Value = 5 Age 41-60 Minor surgery BMI > 25 kg/m2 Swollen legs Varicose veins or History of unexplained or recurrent spontaneous Oral contraceptives or hormone replacement Sepsis (< 1 month) Serious lung disease, including pneumonia (< 1 month) Abnormal pulmonary function Acute myocardial infarction Congestive heart failure (< 1 month) History of inflammatory bowel disease Medical patient at bed rest Age 61-74 Arthroscopic surgery Major open surgery (> 45 min) Laparoscopic surgery (> 45 min) Malignancy Confined to bed (> 72 hours) Immobilizing plaster cast Central venous access Age >= 75 History of VTE Family history of VTE Factor V Leiden Prothrombin [id number] Lupus anticoagulant Anticardiolipin antibodies Elevated serum homocysteine Heparin-induced thrombocytopenia Other congenital or acquired thrombophilia Stroke (< 1 month) Elective arthroplasty Hip, pelvis, or leg fracture Acute spinal cord injury (< 1 month) Prophylaxis Regimen Total Risk Factor Score Risk Level Prophylaxis Regimen 0-1 Low Early ambulation 2 Moderate Order ONE of the following: *Sequential Compression Device (SCD) *Heparin 5000 units SQ BID 3-4 Higher Order ONE of the following medications: *Heparin 5000 units SQ TID *Enoxaparin/Lovenox 40 mg SQ daily (WT < 150 kg, CrCl > 30 mL/min) *Enoxaparin/Lovenox 30 mg SQ daily (WT < 150 kg, CrCl > 10-29 mL/min) *Enoxaparin/Lovenox 30 mg SQ BID (WT < 150 kg, CrCl > 30 mL/min) AND/OR *Sequential Compression Device (SCD) 5 or more Highest Order ONE of the following medications: *Heparin 5000 units SQ TID (Preferred with Epidurals) *Enoxaparin/Lovenox 40 mg SQ daily (WT < 150 kg, CrCl > 30 mL/min) *Enoxaparin/Lovenox 30 mg SQ daily (WT < 150 kg, CrCl > 10-29 mL/min) *Enoxaparin/Lovenox 30 mg SQ BID (WT < 150 kg, CrCl > 30 mL/min) AND *Sequential Compression Device (SCD) Assessment and Plan Problem List: (1) CLL (chronic lymphocytic leukemia) ICD Code: C91.90 - Lymphoid leukemia, unspecified not having achieved remission (2) PATRICK (acute kidney injury) ICD Code: N17.9 - Acute kidney failure, unspecified (3) Hypoxia ICD Code: R09.02 - Hypoxemia Status: Acute (4) Bilateral pneumonia ICD Code: J18.9 - Pneumonia, unspecified organism Status: Acute Assessment and Plan 87-year-old female with multiple medical problems, presented to the ED for shortness of breath for the past week. Pt presents with shortness of breath and bilateral infiltrates on CXR, consistent with pneumonia. She meets sepsis criteria with HR >90 and WBC >81029. She is visibly short of breath and appears restless in bed. Severe Sepsis Bilateral Pneumonia Meets sepsis criteria with HR >90, WBC >12, end organ disease with elevated Cr 1.15, GFR at 44 Lactic acid is normal Source of infection via bilateral infiltrates on CXR. CXR reviewed and findings discussed with ER physician. Lactic acid 1.4 EKG with normal sinus rhythm and rate 98. Nonspecific T-wave changes. Monitor vitals q4hr closely as patient might deteriorate. Start IVF and monitor closely BP , administer bolus Repeat CMP, CBC in AM Hold home medication furosemide to avoid hypotension Placed on telemetry monitoring and continuous pulse oximetry monitoring. Start steroids, taper as tolerated Pain meds per pain scale Ativan prn for anxiety Bilateral Pneumonia Placed on pulse oximetry monitoring. CXR reviewed with bilateral infiltrates BNP wnl, suggesting pneumonia more than pulmonary edema. ABG reviewed revealed likely respiratory acidosis with O2 sat of 77% on room air , 84% on nasal cannula Pt placed on oxygen nasal cannula 2 L. Now on non-rebreather mask WBC elevated at 41, previous white count was normal at 10.2 on 08/22/17 Pending blood cultures, urine pneumococcal Ag and urine legionella Ag Pending sputum gram stain and culture Influenza A&B Ags negative from nasal aspirate Start IV cefepime, azithromycin Start duonebs scheduled and prn Consult ID due to pneumonia, sepsis in immunocompromised patient Mild PATRICK . Cr elevate at 1.15 , GFR at 44. Baseline Cr 0.9. Start IVF 0.9 NS at 100 cc /hr. Avoid nephrotoxic agents. Monitor kidney indices. UA was normal. Chronic lymphocytic leukemia WBC 41, Hb 8.3, PLT 60 Previous WBC and Hb were normal as of 08/22/17 Previous PLT 41 Continue ferrous sulfate home medication Consult hematology/oncology - pt known to Dr. Del Rosario Chronic medical problems appears stable at this time ( HTN, hypothyroidism, gout) . Monitor. Continue home meds as indicated - levothyroxine, amolodipine, allopurinol, fish oil vitamin D, restasis, montelukast, flonase DVT prophylaxis with SCDs and subcutaneous heparin Discussed Condition With pt, family at bedside, nurse, ED physician Physician Certification 2 Midnight Certification Type: Admission for Inpatient Services Order for Inpatient Services The services are ordered in accordance with Medicare regulations or non- Medicare payer requirements, as applicable. In the case of services not specified as inpatient-only, they are appropriately provided as inpatient services in accordance with the 2-midnight benchmark. Estimated LOS (days): 3 days is the estimated time the patient will need to remain in the hospital, assuming treatment plan goals are met and no additional complications. Post-Hospital Plan: Not yet determined Problem Qualifiers (1) Bilateral pneumonia: Qualified Codes: J18.9 - Pneumonia, unspecified organism Renu Guillermo MD October 05, 2017 18:41
[2017-10-05] MEDS ORDERED: RESTASIS OPTH EACH EYE SCH (21:00)
[2017-10-05] MEDS: methylPREDNISolone SOD SUCC 40 MG/1 ML VIAL IV PUSH SCH (21:43)
[2017-10-05] MEDS: DOCUSATE SODIUM 50 MG/SENNA 8.6 MG TAB PO SCH (21:43)
[2017-10-05] MEDS: MONTELUKAST SODIUM 10 MG TAB PO SCH (21:44)
[2017-10-05] MEDS: SODIUM CHLORIDE 0.9% FLUSH 10 ML FLUSH IV FLUSH SCH (21:45)
[2017-10-06] VITALS (18 sets, daily range): BP systolic 108–136; BP diastolic 56–88; PULSE 69–113; RESP 20–28; TEMP 97.2–98.9; O2SAT 87–100
[2017-10-06] MEDS: SODIUM CHLOR 0.9% 1000 ML INJ 1,000 ML IV SCH ×3 (00:39→10:32)
[2017-10-06] MEDS ORDERED: CEFEPIME INJ 2,000 MG in SODIUM CHLORIDE 0.9% INJ 100 ML IV SCH (01:00)
[2017-10-06 04:45] LABS: HEMATOCRIT 22.9 % (35.0-46.0); HEMOGLOBIN 7.3 GM/DL (11.6-15.3); MEAN CELL VOLUME 103.2 FL (80.0-100.0); MEAN PLATELET VOLUME 9.3 FL (7.0-11.0); PLATELET COUNT 54 TH/MM3 (150-450); RED BLOOD COUNT 2.21 MIL/MM3 (4.00-5.30); RED CELL DISTRIBUTION WIDTH 17.6 % (11.6-17.2); WHITE BLOOD COUNT 37.7 TH/MM3 (4.0-11.0)
[2017-10-06 05:09] LABS: ALBUMIN 2.6 GM/DL (3.4-5.0); ALT (GPT) 13 U/L (10-53); AST (GOT) 27 U/L (15-37); BLOOD UREA NITROGEN 20 MG/DL (7-18); CHLORIDE 110 MEQ/L (98-107); CREATININE 0.97 MG/DL (0.50-1.00); GLOMERULAR FILTRATION RATE 54 ML/MIN (>89); GLUCOSE,RANDOM 157 MG/DL (74-106); SODIUM (NA) 143 MEQ/L (136-145)
[2017-10-06 05:15] LABS: ALKALINE PHOSPHATASE 70 U/L (45-117); TOTAL BILIRUBIN ADULT 0.4 MG/DL (0.2-1.0); TOTAL PROTEIN 6.3 GM/DL (6.4-8.2)
[2017-10-06 05:37] LABS: BANDS 2 % (0-6); LYMPHOCYTES 82 % (9-44); MONOCYTES 1 % (0-8); NEUTROPHIL # MANUAL DIFF 6.4 TH/MM3 (1.8-7.7); POLYS (SEG NEUTROPHILS) 15 % (16-70)
[2017-10-06 05:38] LABS: TOXIC GRANULATION 3+ (NORMAL)
[2017-10-06 05:39] LABS: SMUDGE CELLS PRESENT PRESENT
[2017-10-06] MEDS: LEVOTHYROXINE SODIUM 100 MCG TAB PO SCH (06:28)
[2017-10-06] MEDS: methylPREDNISolone SOD SUCC 40 MG/1 ML VIAL IV PUSH SCH ×3 (06:28→17:20)
[2017-10-06] MEDS: RESP: ALBUTEROL 2.5 MG/IPRATROPIUM 0.5 MG NEB (SCH) NEB ×4 (07:59→20:57)
[2017-10-06] MEDS: DOCUSATE SODIUM 50 MG/SENNA 8.6 MG TAB PO SCH ×2 (08:30→21:00)
[2017-10-06] MEDS: ALLOPURINOL 100 MG TAB PO SCH (08:30)
[2017-10-06] MEDS: FERROUS SULFATE 325 MG (65 MG ELEMENTAL IRON) TAB PO SCH (08:30)
[2017-10-06] MEDS: SODIUM CHLORIDE 0.9% FLUSH 10 ML FLUSH IV FLUSH SCH ×2 (08:31→21:00)
[2017-10-06] MEDS: amLODIPine BESYLATE 5 MG TAB PO SCH (08:31)
[2017-10-06] MEDS: HEPARIN SODIUM - SQ 10,000 UNITS/ML VIAL SQ SCH ×2 (08:31→21:00)
[2017-10-06] MEDS ORDERED: NON-FORMULARY DRUG (Fish Oil-Cholecalciferol (Fish Oil + D3) 1 CAP) PO SCH (09:00)
[2017-10-06] MEDS ORDERED: PILL SPLITTER OTHER PRN (09:00)
[2017-10-06] MEDS ORDERED: Vancomycin Consult Pharmacy 1 EA OTHER SCH ×2 (09:30→16:45)
--- NOTE | 2017-10-06 09:37 | PD.CONS ---
History of Present Illness Service Infectious disease Consult Requested By Dr David Guillermo Reason for Consult Evaluate patient with sepsis Primary Care Physician No Primary Care Physician Diagnoses: History of Present Illness Patient seen and examined. Records reviewed. Patient is an 87-year-old female, with known diagnosis of CLL, has been getting Rituxan for about a month, and apparently had a good response. She was started on another medication Zydelig, and she apparently started having some fever and chills which was felt to be 1 of the side effect of the medication. The new medication was stopped October 03. Over the last several days, patient started getting shortness of breath which has progressively worsened, so she was brought into the hospital for further evaluation and treatment. Patient has had some dry cough. She has had problem with allergic rhinitis which has not really worsened recently. She has not had any sputum production. She denies any chest pain. She has not had any nausea or vomiting, or any urinary complaint. She has not been exposed to any sick child. Has not been around any pets, or birds. No recent travel. On evaluation, chest x-ray showed bilateral pulmonary infiltrates. Highest temperature has been 100.9. Her WBC is 37.7, and she is not neutropenic, with an absolute neutrophil count of around 6000. Influenza testing is negative. Urine for Legionella and pneumococcal antigen is negative. Infectious disease consultation has been requested to evaluate the patient. Review of Systems Constitutional: COMPLAINS OF: Fever, Chills, DENIES: Change in appetite Eyes: DENIES: Eye pain Ears, nose, mouth, throat: COMPLAINS OF: Running Nose, DENIES: Nasal discharge , Oral lesions, Throat pain, Toothache, Odynophagia Respiratory: COMPLAINS OF: Cough, Shortness of breath, DENIES: Sputum production Cardiovascular: COMPLAINS OF: Lower Extremity Edema, DENIES: Chest pain, Palpitations, Syncope Gastrointestinal: DENIES: Abdominal pain, Diarrhea, Nausea, Vomiting, Difficulty Swallowing Genitourinary: DENIES: Urinary frequency, Dysuria Musculoskeletal: DENIES: Joint pain, Joint Swelling Integumentary: DENIES: Rash Neurologic: DENIES: Headache, Localized weakness Psychiatric: DENIES: Hallucinations Past Family Social History Allergies: Coded Allergies: penicillin G (Unverified Allergy, Severe, HIVES, SWELLING, 10/05/17) Past Medical History CLL (dx 1994) HTN CKD Osteoarthritis Osteoporosis Hypothyroidism Peripheral vascular disease TIA Cellulitis RLE 2017 Past Surgical History Cholecystectomy 2000 R cataract removal 2016 Complete hysterecomy 1977 R carotid endarterectomy Active Ordered Medications Current Medications Medications (Trade) Dose Ordered Sig/Yulissa Route Start Time Stop Time Status Last Admin Sodium Chloride 1,000 ml @ 100 mls/hr Q10H IV 10/05/17 13:00 10/06/17 00:39 Sodium Chloride 1,000 ml @ 100 mls/hr Q10H IV 10/05/17 13:27 (NS Flush) 2 ml UNSCH PRN IV FLUSH 10/05/17 13:30 (NS Flush) 2 ml BID IV FLUSH 10/05/17 21:00 10/05/17 21:45 (Tylenol) 650 mg Q4H PRN PO 10/05/17 13:30 (Reglan Inj) 5 mg Q6H PRN IV PUSH 10/05/17 13:30 (Heparin Inj) 5,000 units Q12HR SQ 10/05/17 13:40 10/06/17 08:31 (Narcan Inj) 0.4 mg UNSCH PRN IV PUSH 10/05/17 13:30 (Kailee-Colace) 1 tab BID PO 10/05/17 21:00 10/06/17 08:30 (Milk Of Magnesia Liq) 30 ml Q12H PRN PO 10/05/17 13:30 (Senokot) 17.2 mg Q12H PRN PO 10/05/17 13:30 (Dulcolax Supp) 10 mg DAILY PRN RECTAL 10/05/17 13:30 (Lactulose Liq) 30 ml DAILY PRN PO 10/05/17 13:30 Azithromycin 500 mg/Sodium Chloride 250 ml @ 250 mls/hr Q24H IV 10/06/17 14:00 Cefepime HCl 2000 mg/Sodium Chloride 100 ml @ 200 mls/hr Q12H IV 10/06/17 01:00 10/06/17 00:40 (Duoneb Neb) 1 ampule Q4HR WHILE AWAKE NEB NEB 10/05/17 16:00 10/06/17 07:59 (Duoneb Neb) 1 ampule Q2HR NEB PRN NEB 10/05/17 13:45 (Zyloprim) 100 mg DAILY PO 10/06/17 09:00 10/06/17 08:30 (Norvasc) 2.5 mg DAILY PO 10/06/17 09:00 (Ferrous Sulfate) 325 mg DAILY PO 10/06/17 09:00 10/06/17 08:30 (Synthroid) 100 mcg DAILY@0600 PO 10/06/17 06:00 10/06/17 06:28 (Singulair) 10 mg HS PO 10/05/17 21:00 10/05/17 21:44 Patient Own Medication PT OWN MED: RESTASIS OPTH (CYCLOSPORI... BID EACH EYE 10/05/17 21:00 Future Hold (Flonase Francisco Spr) 1 spray DAILY NASAL 10/06/17 09:00 (Pill Splitter) 1 ea UNSCH PRN OTHER 10/06/17 09:00 (Xanax) 0.5 mg Q6H PRN PO 10/05/17 17:30 10/05/17 17:32 (Morphine Inj) 2 mg Q4H PRN IV PUSH 10/05/17 17:30 (SoluMEDROL INJ) 40 mg Q8HR IV PUSH 10/05/17 22:00 10/06/17 06:28 Family History Noncontributory Social History Denies EtOH abuse Denies tobacco Denies illicit drug use Yazdanism - denies blood products Physical Exam Vital Signs Vital Signs Date Time Temp Pulse Resp B/P (MAP) Pulse Ox O2 Delivery O2 Flow Rate FiO2 10/06/17 08:03 96 Partial Rebreather 13.00 10/06/17 07:45 98.9 78 22 114/57 (76) 100 10/06/17 04:30 98.0 69 20 108/69 (82) 98 10/06/17 02:47 78 10/06/17 01:21 98 Partial Non-Rebreather 13.00 10/06/17 00:30 98.9 83 20 136/88 (104) 100 10/05/17 23:30 89 10/05/17 21:45 100 Non-Rebreather 17.00 10/05/17 21:40 97 142/63 (89) 98 10/05/17 18:42 (74) Non-Rebreather 15.00 10/05/17 18:41 100.9 102 20 114/54 (74) 99 5/25/18 16:51 107 19 170/74 (106) 100 Non-Rebreather 15.00 10/05/17 16:50 100 Non-Rebreather 15.00 10/05/17 15:32 95 Non-Rebreather 15.00 10/05/17 14:55 99.2 10/05/17 13:20 93 Nasal Cannula 3.00 10/05/17 13:13 96 34 131/58 (82) 92 3.00 10/05/17 11:07 98.7 97 25 141/75 (97) 93 Nasal Cannula 2.00 10/05/17 11:07 92 Nasal Cannula 2.00 10/05/17 11:04 101 25 87 Room Air 10/05/17 10:42 98.0 108 22 143/66 (91) 85 Physical Exam GENERAL: Patient is a well-nourished, well-developed female, awake and alert, SOB at rest SKIN: Warm and dry. No generalized rash, no ecchymoses and no evidence of embolic lesions. HEAD: Atraumatic. Normocephalic. No temporal wasting, or tenderness. EYES: [place] conjunctiva. No petechia or hemorrhage. Pupils equal, round and reactive to light. Extraocular movements full and intact. No scleral icterus. No injection or drainage. EARS, NOSE AND THROAT: Nose without bleeding or purulent nasal discharge. No sinus tenderness. Mucous membranes pink and moist. No oral lesions noted. No exudate. No oral thrush. NECK: Trachea midline. Supple and not tender, no meningeal signs CARDIOVASCULAR: Regular rate and rhythm. No murmurs, rubs or gallops heard RESPIRATORY: Coarse breath sounds bilaterally, with rhonchi. ABDOMEN: Soft, non-tender, nondistended. Bowel sounds present and normoactive. No guarding. No rebound. No organomegaly. EXTREMITIES: No clubbing, cyanosis, or edema.No joint effusion, has good ROM. No calf tenderness. Well perfused and warm. NEUROLOGICAL: Awake and alert. Cranial nerves grossly intact. Motor grossly within normal limits. PSYCHIATRIC: anxious, cooperative. LINE: No evidence of infection Laboratory Laboratory Tests Test 10/05/17 11:16 10/05/17 11:25 10/05/17 16:35 10/06/17 03:30 Blood Gas Puncture Site LT RADIAL LT RADIAL Blood Gas Patient Temperature 98.6 98.6 Blood Gas HCO3 24 23 Blood Gas Base Excess 0.6 -0.6 Blood Gas Oxygen Saturation 77 84 Arterial Blood pH 7.48 7.48 Arterial Blood Partial Pressure CO2 32 31 Arterial Blood Partial Pressure O2 44 51 Arterial Blood Oxygen Content 9.0 11.3 Arterial Blood Carboxyhemoglobin 2.3 1.9 Arterial Blood Methemoglobin 0.3 0.2 Blood Gas Hemoglobin 8.2 9.6 Blood Gas Inspired Oxygen 21 White Blood Count 41.7 37.7 Red Blood Count 2.54 2.21 Hemoglobin 8.3 7.3 Hematocrit 26.0 22.9 Mean Corpuscular Volume 102.2 103.2 Mean Corpuscular Hemoglobin 32.7 33.0 Mean Corpuscular Hemoglobin Concent 32.0 32.0 Red Cell Distribution Width 18.0 17.6 Platelet Count 69 54 Mean Platelet Volume 9.2 9.3 CBC Comment AUTO DIFF AUTO DIFF Differential Total Cells Counted 100 100 Neutrophils % (Manual) 17 15 Lymphocytes % 81 82 Monocytes % 2 1 Neutrophils # (Manual) 7.1 6.4 Differential Comment FINAL DIFF MANUAL FINAL DIFF MANUAL Smudge Cells PRESENT PRESENT Platelet Estimate LOW LOW Platelet Morphology Comment NORMAL NORMAL Prothrombin Time 10.3 Prothromb Time International Ratio 1.0 Activated Partial Thromboplast Time 21.5 Blood Urea Nitrogen 18 20 Creatinine 1.15 0.97 Random Glucose 89 157 Total Protein 6.8 6.3 Albumin 2.9 2.6 Calcium Level 9.1 8.0 Magnesium Level 2.4 Alkaline Phosphatase 77 70 Aspartate Amino Transf (AST/SGOT) 31 27 Alanine Aminotransferase (ALT/SGPT) 16 13 Total Bilirubin 0.4 0.4 Sodium Level 140 143 Potassium Level 4.3 4.4 Chloride Level 106 110 Carbon Dioxide Level 24.1 24.0 Anion Gap 10 9 Estimat Glomerular Filtration Rate 44 54 Lactic Acid Level 1.4 Total Creatine Kinase 32 Troponin I LESS THAN 0.02 B-Type Natriuretic Peptide 54 Oxygen Delivery Device NASAL CANNULA Blood Gas Liter Flow 5 Band Neutrophils % 2 Toxic Granulation 3+ Date/Time Source Procedure Growth Status 10/05/17 11:25 Blood Peripheral Aerobic Blood Culture Pending Received 10/05/17 11:25 Blood Peripheral Anaerobic Blood Culture Pending Received 10/05/17 11:15 Nasal Aspirate Influenza Types A,B Antigen (JORGE) - Final NEGATIVE FOR FLU A AND B ANTIGEN.... Complete 10/05/17 16:35 Urine Random Urine Legionella Antigen - Final PRESUMPTIVE NEGATIVE FOR LEGIONELLA P... Complete 10/05/17 16:35 Urine Random Urine Streptococcus pneumoniae Antigen (M - Final PRESUMPTIVE NEGATIVE FOR STREPTOCOCCU... Complete Result Diagram: 10/06/17 0330 10/06/17 0330 Imaging RADIOLOGY STUDIES/FILMS REVIEWED Last Impressions Chest X-Ray 10/05/17 1105 Signed Impressions: CONCLUSION: Bilateral infiltrates. Assessment and Plan Assessment and Plan IMPRESSION Sepsis on admission with pulmonary symptoms Bilateral pulmonary infiltrates - concern for PNA (immunocompromised) - ?drug adverse reaction (Zydelig) Respiratory failure, on PNRB Allergy ro PCN, tolerating cephalosporin RECOMMENDATION Will get adult respiratory panel to check for some viral etiology specifically influenza Follow cultures Continue empiric antibiotics - Zithromaz for atypical - Cefepime for GNR coverage - Add vanco for GPC coverage including MRSA Consult pulmonary to assist with respiratory management Add Tamiflu until resp panel results available May need transfer to ICU for closer monitoring of her respiratory status - family wants full code Monitor progress I will follow along with you Thank you for this consultation Discussed Condition With Explained plan to the patient and family Raven López MD October 06, 2017 09:37
[2017-10-06] MEDS ORDERED: VANCOMYCIN INJ 1,000 MG in SODIUM CHLOR 0.9% 250 ML INJ 250 ML IV ONE (09:45)
--- NOTE | 2017-10-06 09:56 | PD.CONS ---
History of Present Illness Service Hematology/oncology. Consult Requested By The hospitalist service. Reason for Consult Patient with diagnoses of chronic lymphocytic leukemia. Symptomatic anemia. Patient declined donor blood products (she is a [employer]ism). Primary Care Physician No Primary Care Physician Diagnoses: (1) CLL (chronic lymphocytic leukemia) (2) Anemia (3) Bilateral pneumonia History of Present Illness Chief complaint: Increasing difficulty breathing. Fevers; temperature up to 101.7F at home. Chills. History of presenting illness: Ms. Paige is an 87-year-old female who was diagnosed in 1994 with chronic lymphocytic leukemia, she had been under the care of [facility] for most of that time. Her initial treatments consisted of chlorambucil tablets which she had responded well. In 2016 her primary oncologist office close down and she transferred her care to [facility] oncology. She was seen by my associate Dr. Del Rosario and has been under his care ever since. The patient had been recommended systemic therapy with ibrutinib which she had difficulty tolerating due to rashes, she was subsequently resumed on chlorambucil to which he had been responding well to. Her disease began to progress and she was subsequently transitioned to right toxin at a low dose; she was receiving weekly dosing and initially she was responding well to this. In August 2017 she was noted to have progressive disease and was recommended addition of Idelalisib at a low dose. She remain on this treatment commendation between and 10/03/2017. She had difficulty tolerating Idelalisib due to worsening chills and fevers. Patient symptoms progressed and she presented to [facility] emergency department for further workup and management. She underwent a chest x-ray on admission which revealed bilateral infiltrates, she has been initiated on broad- spectrum antibiotics. Additionally she is noted to be increasingly anemic with a hemoglobin level of 7.3 g/dL this morning. It should also be noted the patient is a steadfast [employer]ism and will not accept blood products. The oncology service is been asked to see her for further recommendations regarding management of severe anemia. Review of Systems Constitutional: COMPLAINS OF: Diaphoretic episodes, Fatigue, Fever, Weight loss , Chills, Dizziness, Change in appetite (Decreased appetite), Night Sweats, DENIES: Weight gain Endocrine: DENIES: Abnorml menstrual pattern, Heat/cold intolerance, Polydipsia , Polyuria, Polyphagia Eyes: DENIES: Blurred vision, Diplopia, Eye inflammation, Eye pain, Vision loss , Photosensitivity, Double Vision Ears, nose, mouth, throat: DENIES: Tinnitus, Hearing loss, Vertigo, Nasal discharge, Oral lesions, Throat pain, Hoarseness, Ear Pain, Running Nose, Epistaxis, Sinus Pain, Toothache, Odynophagia Respiratory: COMPLAINS OF: Cough, Wheezing, Sputum production, Shortness of breath, DENIES: Apneas, Snoring, Hemoptysis Cardiovascular: COMPLAINS OF: Palpitations, Dyspnea on Exertion, Lower Extremity Edema, DENIES: Chest pain, Syncope, PND, Orthopnea, Claudication Gastrointestinal: DENIES: Abdominal pain, Black stools, Bloody stools, Constipation, Diarrhea, Nausea, Vomiting, Difficulty Swallowing, Anorexia Genitourinary: DENIES: Abnormal vaginal bleeding, Dysmenorrhea, Dyspareunia, Sexual dysfunction, Urinary frequency, Urinary incontinence, Urgency, Hematuria , Dysuria, Nocturia, Vaginal discharge Musculoskeletal: DENIES: Joint pain, Muscle aches, Stiffness, Joint Swelling, Back pain, Neck pain Integumentary: DENIES: Abnormal pigmentation, Pruritus, Rash, Nail changes, Breast masses, Breast skin changes, Nipple discharge Hematologic/lymphatic: DENIES: Bruising, Lymphadenopathy Immunologic/allergic: DENIES: Eczema, Urticaria Neurologic: COMPLAINS OF: Poor Balance, DENIES: Abnormal gait, Headache, Localized weakness, Paresthesias, Seizures, Speech Problems, Tremor Psychiatric: COMPLAINS OF: Anxiety, DENIES: Confusion, Mood changes, Depression , Hallucinations, Agitation, Suicidal Ideation, Homicidal Ideation, Delusions Except as stated in HPI: all other systems reviewed are Neg Past Family Social History Allergies: Coded Allergies: penicillin G (Unverified Allergy, Severe, HIVES, SWELLING, 10/05/17) Past Medical History Chronic lymphocytic leukemia Chronic renal insufficiency Hypertension Hypothyroidism Osteoarthritis Osteoporosis Peripheral vascular disease Transient ischemic attack Stroke. Frailty Past Surgical History Cataract surgery Cholecystectomy Hysterectomy Right carotid endarterectomy Active Ordered Medications Azithromycin 500 mill grams IV once daily. Cefepime 2 g IV every 8 hours Normal saline 100 cc/h Vancomycin 1000 mill grams IV 1 Duo nebs 1 amp every 4 hours nebulized Allopurinol 100 mg p.o. daily Alprazolam 0.5 mg p.o. every 6 hours needed for anxiety Amlodipine 2.5 mg p.o. daily Senna Colace 1 tablet p.o. twice daily Ferrous sulfate 325 mg p.o. daily Fluticasone nasal spray 1 spray in each nare once daily Heparin 5000 units subcu every 12 hours Levothyroxine 100 mcg p.o. once daily Methylprednisolone 40 mg IV every 8 hours Metoclopramide 5 mill grams IV every 6 hours Singular 10 mg p.o. nightly Senokot 17.2 mg p.o. every 12 hours needed for constipation Family History Parents both . Father of complications of emphysema. Mother of complications of advanced age. Brother with dementia. No known oncologic diagnoses or malignant hematologic diagnoses in the family. Social History Patient lives at home alone, she has a daughter who lives close by and checks in on her daily. She has 2 adult sons. She is a lifelong non-smoker but does have significant secondhand smoke exposure. She denies alcohol abuse. Physical Exam Vital Signs Vital Signs Date Time Temp Pulse Resp B/P (MAP) Pulse Ox O2 Delivery O2 Flow Rate FiO2 10/06/17 08:03 96 Partial Rebreather 13.00 10/06/17 07:45 98.9 78 22 114/57 (76) 100 10/06/17 04:30 98.0 69 20 108/69 (82) 98 10/06/17 02:47 78 10/06/17 01:21 98 Partial Non-Rebreather 13.00 10/06/17 00:30 98.9 83 20 136/88 (104) 100 10/05/17 23:30 89 10/05/17 21:45 100 Non-Rebreather 17.00 10/05/17 21:40 97 142/63 (89) 98 10/05/17 18:42 (74) Non-Rebreather 15.00 10/05/17 18:41 100.9 102 20 114/54 (74) 99 10/05/17 16:51 107 19 170/74 (106) 100 Non-Rebreather 15.00 10/05/17 16:50 100 Non-Rebreather 15.00 10/05/17 15:32 95 Non-Rebreather 15.00 10/05/17 14:55 99.2 10/05/17 13:20 93 Nasal Cannula 3.00 10/05/17 13:13 96 34 131/58 (82) 92 3.00 10/05/17 11:07 98.7 97 25 141/75 (97) 93 Nasal Cannula 2.00 10/05/17 11:07 92 Nasal Cannula 2.00 10/05/17 11:04 101 25 87 Room Air 10/05/17 10:42 98.0 108 22 143/66 (91) 85 Physical Exam GENERAL: Elderly female sitting up in bed, she is on a nonrebreather, she appears to be in mild respiratory distress. She is able to speak to me in full sentences. Her daughter is at bedside. The patient appears to be pale. SKIN: No rashes, ecchymoses or lesions. Cool and dry. Generally pale. HEAD: Atraumatic. Normocephalic. No temporal or scalp tenderness. EYES: Pupils equal round and reactive. Extraocular motions intact. No scleral icterus. No injection or drainage. Conjunctivae are pale sclerae anicteric. ENT: Nose without bleeding, purulent drainage or septal hematoma. Throat without erythema, tonsillar hypertrophy or exudate. Uvula midline. Airway patent. NECK: Trachea midline. No JVD or lymphadenopathy. Supple, nontender, no meningeal signs. CARDIOVASCULAR: Tachycardic, regular rhythm without irregularity. Without murmurs, gallops, or rubs. RESPIRATORY: She is tachypneic, good air movement of the upper and middle lung zones, decreased bibasilar breath sounds, scattered rhonchi and crepitus. GASTROINTESTINAL: Abdomen soft, non-tender, nondistended. No hepato-splenomegaly , or palpable masses. No guarding. MUSCULOSKELETAL: Extremities without clubbing, cyanosis, or edema. No joint tenderness, effusion, or edema noted. No calf tenderness. Negative Homans sign bilaterally. NEUROLOGICAL: Awake and alert. Cranial nerves II through XII intact. Motor and sensory grossly within normal limits. Five out of 5 muscle strength on the muscles of the right upper extremity, left upper extremity has 4 x 5 strength and decreased muscle mass. Laboratory Laboratory Tests Test 10/05/17 11:16 10/05/17 11:25 10/05/17 16:35 10/06/17 03:30 Blood Gas Puncture Site LT RADIAL LT RADIAL Blood Gas Patient Temperature 98.6 98.6 Blood Gas HCO3 24 23 Blood Gas Base Excess 0.6 -0.6 Blood Gas Oxygen Saturation 77 84 Arterial Blood pH 7.48 7.48 Arterial Blood Partial Pressure CO2 32 31 Arterial Blood Partial Pressure O2 44 51 Arterial Blood Oxygen Content 9.0 11.3 Arterial Blood Carboxyhemoglobin 2.3 1.9 Arterial Blood Methemoglobin 0.3 0.2 Blood Gas Hemoglobin 8.2 9.6 Blood Gas Inspired Oxygen 21 White Blood Count 41.7 37.7 Red Blood Count 2.54 2.21 Hemoglobin 8.3 7.3 Hematocrit 26.0 22.9 Mean Corpuscular Volume 102.2 103.2 Mean Corpuscular Hemoglobin 32.7 33.0 Mean Corpuscular Hemoglobin Concent 32.0 32.0 Red Cell Distribution Width 18.0 17.6 Platelet Count 69 54 Mean Platelet Volume 9.2 9.3 CBC Comment AUTO DIFF AUTO DIFF Differential Total Cells Counted 100 100 Neutrophils % (Manual) 17 15 Lymphocytes % 81 82 Monocytes % 2 1 Neutrophils # (Manual) 7.1 6.4 Differential Comment FINAL DIFF MANUAL FINAL DIFF MANUAL Smudge Cells PRESENT PRESENT Platelet Estimate LOW LOW Platelet Morphology Comment NORMAL NORMAL Prothrombin Time 10.3 Prothromb Time International Ratio 1.0 Activated Partial Thromboplast Time 21.5 Blood Urea Nitrogen 18 20 Creatinine 1.15 0.97 Random Glucose 89 157 Total Protein 6.8 6.3 Albumin 2.9 2.6 Calcium Level 9.1 8.0 Magnesium Level 2.4 Alkaline Phosphatase 77 70 Aspartate Amino Transf (AST/SGOT) 31 27 Alanine Aminotransferase (ALT/SGPT) 16 13 Total Bilirubin 0.4 0.4 Sodium Level 140 143 Potassium Level 4.3 4.4 Chloride Level 106 110 Carbon Dioxide Level 24.1 24.0 Anion Gap 10 9 Estimat Glomerular Filtration Rate 44 54 Lactic Acid Level 1.4 Total Creatine Kinase 32 Troponin I LESS THAN 0.02 B-Type Natriuretic Peptide 54 Oxygen Delivery Device NASAL CANNULA Blood Gas Liter Flow 5 Band Neutrophils % 2 Toxic Granulation 3+ Date/Time Source Procedure Growth Status 10/05/17 11:25 Blood Peripheral Aerobic Blood Culture Pending Received 10/05/17 11:25 Blood Peripheral Anaerobic Blood Culture Pending Received 10/05/17 11:15 Nasal Aspirate Influenza Types A,B Antigen (JORGE) - Final NEGATIVE FOR FLU A AND B ANTIGEN.... Complete 10/05/17 16:35 Urine Random Urine Legionella Antigen - Final PRESUMPTIVE NEGATIVE FOR LEGIONELLA P... Complete 10/05/17 16:35 Urine Random Urine Streptococcus pneumoniae Antigen (M - Final PRESUMPTIVE NEGATIVE FOR STREPTOCOCCU... Complete Result Diagram: 10/06/1732910/06/17 033 Imaging Chest x-ray dated 10/05/2017: Bilateral infiltrates noted. Assessment and Plan Assessment and Plan 87-year-old female with a long-standing history of chronic lymphocytic leukemia initially diagnosed in 1998, most recently she has been on a combination of rituximab and Idelalisib, she has had difficulty tolerating this combination due to symptoms of fevers and chills. She now presents with temperatures of up to 101.7F at home, difficulty breathing, hypoxic respiratory failure and chest x-ray with bilateral infiltrates. She has been initiated on broad-spectrum antibiotic coverage. The patient has symptomatic anemia as well, her hemoglobin is declining; blood work this morning indicates hemoglobin level of 7.3 g/dL. She denies overt bleeding. Blood work including LFTs indicate normal bilirubin level, LDH and haptoglobin levels are pending however I doubt at this time she has hemolytic anemia. She is on empiric corticosteroid therapy; these were initiated for management of bronchospasm. Corticosteroids should also control ongoing hemolysis if there is an element of hemolysis. I suspect the patient's anemia is most likely related to poor marrow synthetic function due to her long and drawn out history of chronic lymphocytic leukemia. I suspect she is thrombocytopenic for the same reason. Recommendations: 1. Chronic lymphocytic leukemia: This is the likely cause of her cytopenias due to marrow infiltration and poor marrow synthetic function. I will initiate the patient on treatment with erythropoietin a dose of 20,000 units subcu 1 today. Typically we reserve erythropoietin for management of anemia related chronic kidney injury however given this patient's circumstances and because she will not accept blood transfusion support I have little choice but to use erythropoietin at this time. Improving her hemoglobin and hematocrit may help improve her respiratory symptoms. 2. Bilateral pulmonary infiltrates: She is on broad-spectrum antibiotic coverage. Infectious diseases and pulmonology have been asked to see the patient as well. Problem Qualifiers (1) Anemia: Qualified Codes: D61.89 - Other specified aplastic anemias and other bone marrow failure syndromes (2) Bilateral pneumonia: Qualified Codes: J18.9 - Pneumonia, unspecified organism Bryon Montero MD October 06, 2017 09:56
[2017-10-06] MEDS ORDERED: EPOETIN ALFA 20,000 UNITS/ML VIAL SQ ONE (10:00)
[2017-10-06 10:31] LABS: % SATURATION IRON PROFILE 15.4 % (20-50); IRON (FE) 38 MCG/DL (50-170); TOTAL IRON BINDING CAPACITY 246 MCG/DL (250-450)
[2017-10-06 10:34] LABS: FERRITIN 410 NG/ML (8-252)
[2017-10-06] MEDS: OSELTAMIVIR PHOSPHATE 75 MG CAP PO SCH ×2 (11:17→21:00)
[2017-10-06] MEDS: FLUTICASONE PROPIONATE 50 MCG/ACT 16 GM NASAL SPRAY NASAL SCH (11:17)
--- NOTE | 2017-10-06 12:55 | HHI.PR ---
Subjective Remarks Follow-up for pneumonia Patient is tachypneic on nonrebreather, her oxygen saturation also went down to 88%. Patient still short of breath but says better than yesterday. Per patient's son and per patient, she is DNR/DNI. No intubation. DNR form filled. Patient denies any chest pain. Objective Vitals Vital Signs Date Time Temp Pulse Resp B/P (MAP) Pulse Ox O2 Delivery O2 Flow Rate FiO2 10/06/17 11:51 97.2 89 20 108/56 (73) 100 10/06/17 08:30 78 10/06/17 08:03 96 Partial Rebreather 13.00 10/06/17 07:50 Partial Non-Rebreather 13.00 10/06/17 07:45 98.9 78 22 114/57 (76) 100 10/06/17 04:30 98.0 69 20 108/69 (82) 98 10/06/17 02:47 78 10/06/17 01:21 98 Partial Non-Rebreather 13.00 10/06/17 00:30 98.9 83 20 136/88 (104) 100 10/05/17 23:30 89 10/05/17 21:45 100 Non-Rebreather 17.00 10/05/17 21:40 97 142/63 (89) 98 10/05/17 18:42 (74) Non-Rebreather 15.00 10/05/17 18:41 100.9 102 20 114/54 (74) 99 10/05/17 16:51 107 19 170/74 (106) 100 Non-Rebreather 15.00 10/05/17 16:50 100 Non-Rebreather 15.00 10/05/17 15:32 95 Non-Rebreather 15.00 10/05/17 14:55 99.2 10/05/17 13:20 93 Nasal Cannula 3.00 10/05/17 13:13 96 34 131/58 (82) 92 3.00 I/O 10/05/17 10/05/17 10/05/17 10/06/17 10/06/17 10/06/17 07:00 15:00 23:00 07:00 15:00 23:00 Intake Total 350 ml 100 ml Output Total 50 ml 400 ml Balance 300 ml -300 ml Intake Oral 100 ml IV Total 350 ml Output Urine Total 50 ml 400 ml # Voids 1 1 # Bowel Movements 0 Result Diagram: 10/06/17 03310/06/17 0330 Objective Remarks In mild respiratory distress. PERRL, pink conjunctiva without injectio Tachypneic. Bilateral bronchial breath sounds, no wheezing heard. No crackles. Occasional rhonchi. Tachycardic, regular rhythm, systolic murmur 1/6, no rub. Abdomen soft, nontender No edema Awake alert and oriented 3, no focal deficits. A/P Problem List: (1) CLL (chronic lymphocytic leukemia) ICD Code: C91.90 - Lymphoid leukemia, unspecified not having achieved remission (2) PATRICK (acute kidney injury) ICD Code: N17.9 - Acute kidney failure, unspecified (3) Hypoxia ICD Code: R09.02 - Hypoxemia Status: Acute (4) Bilateral pneumonia ICD Code: J18.9 - Pneumonia, unspecified organism Status: Acute Assessment and Plan Assessment and Plan 87-year-old female with multiple medical problems, presented to the ED for shortness of breath for the past week. Pt presents with shortness of breath and bilateral infiltrates on CXR, consistent with pneumonia. Severe Sepsis Bilateral Pneumonia, likely bacterial Acute hypoxic respiratory failure -Infectious disease on board, continue solumedrol, continue duo nebs every 4 and every 2 hours as needed. Ativan for anxiety. On azithromycin, cefepime, Tamiflu, start vancomycin. Follow-up cultures. CXR reviewed with bilateral infiltrates, cont oxygen support, pulmonary following, on NRB, pt is DNR/DNI, will be on BiPAP per pulmonary. She responded from diuresis with Lasix, will give a dose of Lasix. Mild PATRICK - Resolved Chronic lymphocytic leukemia WBC 41, Hb 8.3, PLT 60 Previous WBC and Hb were normal as of 08/22/17 Previous PLT 41, hematology following, Procrit per hematology for anemia 'since patient is a Judaism. Chronic medical problems appears stable at this time ( HTN, hypothyroidism, gout) . Monitor. Continue home meds as indicated - levothyroxine, amolodipine, allopurinol, fish oil vitamin D, restasis, montelukast, flonase DVT prophylaxis with SCDs and subcutaneous heparin DNR/DNI Discussed with son. Problem Qualifiers (1) Bilateral pneumonia: Qualified Codes: J18.9 - Pneumonia, unspecified organism Cara Singleton MD October 06, 2017 12:55
[2017-10-06] MEDS: AZITHROMYCIN INJ 500 MG in SODIUM CHLOR 0.9% 250 ML INJ 250 ML IV SCH (13:22)
[2017-10-06] MEDS ORDERED: FUROSEMIDE 40 MG/4 ML VIAL IV PUSH ONE (14:30)
[2017-10-06] MEDS ORDERED: MORPHINE SULFATE 4 MG/ML INJ IV PUSH ONE (14:30)
[2017-10-06] MEDS: ALPRAZolam 0.5 MG TAB PO PRN (15:27)
[2017-10-06] MEDS ORDERED: FUROSEMIDE 20 MG/2 ML VIAL IV PUSH ONE (17:00)
[2017-10-06] MEDS: CEFEPIME INJ 2,000 MG in SODIUM CHLORIDE 0.9% INJ 100 ML IV SCH (17:20)
--- NOTE | 2017-10-06 18:45 | MB ---
cc: Apollo Hughes MD, V J MD DATE: 10/06/2017 REASON FOR CONSULTATION: Pulmonary infiltrates and hypoxia. HISTORY OF PRESENT ILLNESS: This is an 87-year-old white female who has had a prior history of chronic lymphocytic leukemia, has been under therapy given by Dr. Del Rosario. The patient apparently has been on chlorambucil tablets and recently was suggested to go on ibrutinib. She was unable to tolerate the drug and thus went back on chlorambucil. The patient has been doing fairly well up until this past month, when she started with progressive disease and was advised to modify her treatment and had further difficulty with a new drug which was idelalisib with increasing fever, chills and shortness of breath. She had a chest x-ray that was done this past week, which showed bilateral pulmonary infiltrates and thus she was placed on IV antibiotic therapy and admitted. Her CBC also showed anemia with a hemoglobin down to 7.3. The patient does not accept blood products. She has been on a nonrebreather mask to maintain her saturation over 90% and she has requested a DNR status. The patient has had no hemoptysis, but does have a persistent cough and she has wheezing and she is orthopneic. PAST MEDICAL HISTORY: As mentioned above, significant for chronic lymphocytic leukemia and chronic kidney disease, history of hypertension, hypothyroidism, peripheral vascular disease, osteoporosis and a previous stroke. PAST SURGICAL HISTORY: Includes cholecystectomy and cataract surgery as well as hysterectomy and right carotid endarterectomy. MEDICATIONS: 1. Vancomycin IV 2. Cefepime 2 grams IV, 3. Zithromax 500 mg IV. 4. Allopurinol 100 mg a day. 5. DuoNeb nebs q 6 6. Heparin subcu 5000 units 7. Solu-Medrol 40 mg IV q 8 . 8. Singulair 10 mg a day. HABITS: The patient is a nonsmoker and no significant alcohol use. FAMILY HISTORY: Father had a history of COPD. REVIEW OF SYSTEMS: The patient is on a nonrebreather mask at 90% FIO2. She is unable to respond well to questions. She denies any chest pains, but she is short of breath. She has some abdominal discomfort as well and has had some leg swelling and has nausea and poor appetite. PHYSICAL EXAMINATION: GENERAL: This is a thinly built, elderly white female who is pale and tachypneic. VITAL SIGNS: Blood pressure 128/70, pulse is 105, respirations 30, temperature 99.5. HEENT: Head is normocephalic. Pupils reactive. Sclerae were injected. Tongue was dry. Throat is injected. NECK: Supple. No lymphadenopathy. No bruits or thyroid enlargement. LUNGS: Decreased breath sounds to the periphery with scattered coarse wheezes bilaterally with basilar crackles. HEART: The heart sounds are regular, S1, S2 with no definite murmur. ABDOMEN: Soft, nontender. There is no organomegaly. Bowel sounds are active. EXTREMITIES: Minimal edema. No skin lesions. NEUROLOGIC: She is moving all her extremities with no gross motor deficits. Cranial nerves are grossly intact. RECTAL: Deferred. SKIN: Dry and cool. IMPRESSION: 1. Bilateral pneumonia with hypoxemia. 2. History of chronic lymphocytic leukemia on therapy. 3. Anemia. 4. Possible sepsis. 5. Probable aspiration. PLAN: The patient will be continued on antibiotic coverage as ordered including cefepime 2 grams IV Q8 and Zithromax 500 mg IV Q24 and vancomycin 750 mg q. 24. We will place her on DuoNeb nebs q 6 hrs and continue with Solu-Medrol 40 mg IV q8 hours. Chest x-ray to be repeated. She will be placed on a BiPAP mask 15/5 and FIO2 of 50% to maintain saturations over 92. The patient's clinical condition is poor. I discussed code status with her and her son, who is present, and they requested Do Not Intubate. We will continue all conservative measures including BiPAP mask and a repeat chest x-ray in a.m. and blood gas studies. Thank you for this consultation. MD CLEMENT Mansfield/ , 06:04 PM , 06:43 PM
[2017-10-06] MEDS: MONTELUKAST SODIUM 10 MG TAB PO SCH (21:00)
[2017-10-07] VITALS (37 sets, daily range): BP systolic 122–165; BP diastolic 57–77; PULSE 78–105; RESP 18–28; TEMP 97–98.5; O2SAT 89–100
[2017-10-07] MEDS: RESP: ALBUTEROL 2.5 MG/IPRATROPIUM 0.5 MG NEB (SCH) NEB ×6 (00:16→23:07)
[2017-10-07] MEDS: CEFEPIME INJ 2,000 MG in SODIUM CHLORIDE 0.9% INJ 100 ML IV SCH ×3 (00:21→17:00)
[2017-10-07] MEDS: methylPREDNISolone SOD SUCC 40 MG/1 ML VIAL IV PUSH SCH ×5 (00:21→23:13)
[2017-10-07] MEDS: LEVOTHYROXINE SODIUM 100 MCG TAB PO SCH (05:33)
[2017-10-07] MEDS: ALPRAZolam 0.5 MG TAB PO PRN ×3 (06:17→21:43)
--- NOTE | 2017-10-07 08:45 | HHI.IDPN ---
Subjective Subjective Remarks Patient is an 87-year-old female, with known diagnosis of CLL, has been getting Rituxan for about a month, and apparently had a good response. She was started on another medication Zydelig, and she apparently started having some fever and chills which was felt to be 1 of the side effect of the medication. The new medication was stopped October 03. Over the last several days, patient started getting shortness of breath which has progressively worsened, so she was brought into the hospital for further evaluation and treatment. Patient has had some dry cough. She has had problem with allergic rhinitis which has not really worsened recently. She has not had any sputum production. She denies any chest pain. She has not had any nausea or vomiting, or any urinary complaint. She has not been exposed to any sick child. Has not been around any pets, or birds. No recent travel. On evaluation, chest x-ray showed bilateral pulmonary infiltrates. Highest temperature has been 100.9. Her WBC is 37.7, and she is not neutropenic, with an absolute neutrophil count of around 6000. Influenza testing is negative. Urine for Legionella and pneumococcal antigen is negative. Infectious disease consultation has been requested to evaluate the patient. Notes reviewed Discussed with ELAN womack Progressive shortness of breath, on BiPAP now Pulmonary evaluation noted Patient now has a DNR status Legionella and pneumococcal antigen negative Influenza negative Blood cultures negative so far Antibiotics Cefepime Zithromax Vancomycin Current Medications Medications (Trade) Dose Ordered Sig/Yulissa Route Start Time Stop Time Status Last Admin (NS Flush) 2 ml UNSCH PRN IV FLUSH 10/05/17 13:30 (NS Flush) 2 ml BID IV FLUSH 10/05/17 21:00 10/06/17 21:00 (Tylenol) 650 mg Q4H PRN PO 10/05/17 13:30 (Reglan Inj) 5 mg Q6H PRN IV PUSH 10/05/17 13:30 (Narcan Inj) 0.4 mg UNSCH PRN IV PUSH 10/05/17 13:30 (Kailee-Colace) 1 tab BID PO 10/05/17 21:00 10/06/17 08:30 (Milk Of Magnesia Liq) 30 ml Q12H PRN PO 10/05/17 13:30 (Senokot) 17.2 mg Q12H PRN PO 10/05/17 13:30 (Dulcolax Supp) 10 mg DAILY PRN RECTAL 10/05/17 13:30 (Lactulose Liq) 30 ml DAILY PRN PO 10/05/17 13:30 Azithromycin 500 mg/Sodium Chloride 250 ml @ 250 mls/hr Q24H IV 10/06/17 14:00 10/06/17 13:22 (Duoneb Neb) 1 ampule Q2HR NEB PRN NEB 10/05/17 13:45 10/06/17 14:39 (Zyloprim) 100 mg DAILY PO 10/06/17 09:00 10/06/17 08:30 (Norvasc) 2.5 mg DAILY PO 10/06/17 09:00 (Ferrous Sulfate) 325 mg DAILY PO 10/06/17 09:00 10/06/17 08:30 (Synthroid) 100 mcg DAILY@0600 PO 10/06/17 06:00 10/07/17 05:33 (Singulair) 10 mg HS PO 10/05/17 21:00 10/05/17 21:44 Patient Own Medication PT OWN MED: RESTASIS OPTH (CYCLOSPORI... BID EACH EYE 10/05/17 21:00 Future Hold (Flonase Francisco Spr) 1 spray DAILY NASAL 10/06/17 09:00 10/06/17 11:17 (Pill Splitter) 1 ea UNSCH PRN OTHER 10/06/17 09:00 (Xanax) 0.5 mg Q6H PRN PO 10/05/17 17:30 10/07/17 06:17 (Morphine Inj) 2 mg Q4H PRN IV PUSH 10/05/17 17:30 Cefepime HCl 2000 mg/Sodium Chloride 100 ml @ 200 mls/hr Q8H IV 10/06/17 17:00 10/07/17 00:21 (Tamiflu) 75 mg BID PO 10/06/17 10:00 10/06/17 11:17 (Duoneb Neb) 1 ampule Q4HR NEB NEB 10/06/17 16:00 10/07/17 08:01 (SoluMEDROL INJ) 40 mg Q6HR IV PUSH 10/06/17 18:00 10/07/17 05:36 Vancomycin HCl 750 mg/Sodium Chloride 250 ml @ 250 mls/hr Q24H IV 10/07/17 10:00 Pharmacy Profile Note 0 ml @ 0 mls/hr UNSCH OTHER 10/06/17 16:45 ([facility] Ordered Lab Info) SPECIFIC LAB TO BE DRAWN:VANCOMYCIN TROUGH DATE TO... ONCE ONCE .XX 10/09/17 09:45 10/09/17 09:46 Lines IV site no evidence of infection Past Medical History CLL (dx 1994) HTN CKD Osteoarthritis Osteoporosis Hypothyroidism Peripheral vascular disease TIA Cellulitis RLE 2017 Past Surgical History Cholecystectomy 2000 R cataract removal 2016 Complete hysterecomy 1976 R carotid endarterectomy Allergies: Coded Allergies: penicillin G (Unverified Allergy, Severe, HIVES, SWELLING, 10/05/17) Objective . Vital Signs Date Time Temp Pulse Resp B/P (MAP) Pulse Ox O2 Delivery O2 Flow Rate FiO2 10/07/17 08:03 100 75 10/07/17 06:00 84 10/07/17 05:38 97 80 10/07/17 05:00 92 10/07/17 04:00 86 24 135/67 (89) 93 10/07/17 04:00 90 10/07/17 03:58 100 15.00 100 10/07/17 03:00 78 10/07/17 02:00 90 10/07/17 01:00 84 10/07/17 00:19 96 80 10/07/17 00:15 87 18 122/57 (78) 96 10/07/17 00:00 80 10/06/17 23:00 89 10/06/17 22:00 86 10/06/17 21:03 97 80 10/06/17 21:01 97 BiPAP 80 10/06/17 21:00 94 10/06/17 20:00 97.8 98 28 117/58 (77) 96 10/06/17 20:00 94 10/06/17 20:00 93 Bi-Pap 15.00 10/06/17 17:33 92 80 10/06/17 16:55 113 10/06/17 16:15 Bi-Pap 10/06/17 16:05 97.6 111 20 128/60 (82) 87 10/06/17 14:55 Non-Rebreather 15.00 10/06/17 14:44 89 Non-Rebreather 15.00 10/06/17 14:15 Partial Non-Rebreather 15.00 10/06/17 12:00 97 10/06/17 11:51 97.2 89 20 108/56 (73) 100 . Laboratory Tests Test 10/05/17 11:25 10/06/17 03:30 White Blood Count 41.7 TH/MM3 37.7 TH/MM3 Red Blood Count 2.54 MIL/MM3 2.21 MIL/MM3 Hemoglobin 8.3 GM/DL 7.3 GM/DL Hematocrit 26.0 % 22.9 % Mean Corpuscular Volume 102.2 FL 103.2 FL Mean Corpuscular Hemoglobin 32.7 PG 33.0 PG Mean Corpuscular Hemoglobin Concent 32.0 % 32.0 % Red Cell Distribution Width 18.0 % 17.6 % Platelet Count 69 TH/MM3 54 TH/MM3 Mean Platelet Volume 9.2 FL 9.3 FL CBC Comment AUTO DIFF AUTO DIFF Differential Total Cells Counted 100 100 Neutrophils % (Manual) 17 % 15 % Lymphocytes % 81 % 82 % Monocytes % 2 % 1 % Neutrophils # (Manual) 7.1 TH/MM3 6.4 TH/MM3 Differential Comment FINAL DIFF MANUAL FINAL DIFF MANUAL Smudge Cells PRESENT PRESENT Platelet Estimate LOW LOW Platelet Morphology Comment NORMAL NORMAL Band Neutrophils % 2 % Toxic Granulation 3+ Haptoglobin 163 MG/DL Laboratory Tests Test 10/05/17 11:25 10/06/17 03:30 Blood Urea Nitrogen 18 MG/DL 20 MG/DL Creatinine 1.15 MG/DL 0.97 MG/DL Random Glucose 89 MG/DL 157 MG/DL Total Protein 6.8 GM/DL 6.3 GM/DL Albumin 2.9 GM/DL 2.6 GM/DL Calcium Level 9.1 MG/DL 8.0 MG/DL Magnesium Level 2.4 MG/DL Alkaline Phosphatase 77 U/L 70 U/L Aspartate Amino Transf (AST/SGOT) 31 U/L 27 U/L Alanine Aminotransferase (ALT/SGPT) 16 U/L 13 U/L Total Bilirubin 0.4 MG/DL 0.4 MG/DL Sodium Level 140 MEQ/L 143 MEQ/L Potassium Level 4.3 MEQ/L 4.4 MEQ/L Chloride Level 106 MEQ/L 110 MEQ/L Carbon Dioxide Level 24.1 MEQ/L 24.0 MEQ/L Anion Gap 10 MEQ/L 9 MEQ/L Estimat Glomerular Filtration Rate 44 ML/MIN 54 ML/MIN Lactic Acid Level 1.4 mmol/L Total Creatine Kinase 32 U/L Troponin I LESS THAN 0.02 NG/ML B-Type Natriuretic Peptide 54 PG/ML Iron Level 38 MCG/DL Total Iron Binding Capacity 246 MCG/DL Percent Iron Saturation 15.4 % Ferritin 410 NG/ML Lactate Dehydrogenase 386 U/L Microbiology Date/Time Source Procedure Growth Status 10/05/17 11:25 Blood Peripheral Aerobic Blood Culture - Preliminary NO GROWTH IN 1 DAY Resulted 10/05/17 11:25 Blood Peripheral Anaerobic Blood Culture - Preliminary NO GROWTH IN 1 DAY Resulted 10/05/17 11:20 Blood Peripheral Aerobic Blood Culture - Preliminary NO GROWTH IN 1 DAY Resulted 10/05/17 11:20 Blood Peripheral Anaerobic Blood Culture - Preliminary NO GROWTH IN 1 DAY Resulted 10/05/17 11:15 Nasal Aspirate Influenza Types A,B Antigen (JORGE) - Final NEGATIVE FOR FLU A AND B ANTIGEN.... Complete 10/05/17 16:35 Urine Random Urine Legionella Antigen - Final PRESUMPTIVE NEGATIVE FOR LEGIONELLA P... Complete 10/05/17 16:35 Urine Random Urine Streptococcus pneumoniae Antigen (M - Final PRESUMPTIVE NEGATIVE FOR STREPTOCOCCU... Complete Imaging Last Impressions Chest X-Ray 10/05/17 1105 Signed Impressions: CONCLUSION: Bilateral infiltrates. Physical Exam GENERAL: Patient is a well-nourished, well-developed female, awake and alert, SOB at rest SKIN: Warm and dry. No generalized rash, no ecchymoses and no evidence of embolic lesions. HEAD: Atraumatic. Normocephalic. No temporal wasting, or tenderness. EYES: [place] conjunctiva. No petechia or hemorrhage. Pupils equal, round and reactive to light. Extraocular movements full and intact. No scleral icterus. No injection or drainage. EARS, NOSE AND THROAT: Nose without bleeding or purulent nasal discharge. No sinus tenderness. Mucous membranes pink and moist. No oral lesions noted. No exudate. No oral thrush. NECK: Trachea midline. Supple and not tender, no meningeal signs CARDIOVASCULAR: Regular rate and rhythm. No murmurs, rubs or gallops heard RESPIRATORY: Coarse breath sounds bilaterally, with rhonchi. ABDOMEN: Soft, non-tender, nondistended. Bowel sounds present and normoactive. No guarding. No rebound. No organomegaly. EXTREMITIES: No clubbing, cyanosis, or edema.No joint effusion, has good ROM. No calf tenderness. Well perfused and warm. NEUROLOGICAL: Awake and alert. Cranial nerves grossly intact. Motor grossly within normal limits. PSYCHIATRIC: anxious, cooperative. LINE: No evidence of infection Assessment & Plan Remarks IMPRESSION Sepsis on admission with pulmonary symptoms Bilateral pulmonary infiltrates - concern for PNA (immunocompromised) - ?drug adverse reaction (Zydelig) Respiratory failure, on BIPAP mask now Allergy ro PCN, tolerating cephalosporin RECOMMENDATION Will get adult respiratory panel to check for some viral etiology specifically influenza Follow cultures Continue empiric antibiotics - Zithromaz for atypical - Cefepime for GNR coverage - Vanco for GPC coverage including MRSA Also on Tamiflu until resp panel results available May need transfer to ICU for closer monitoring of her respiratory status - family now has made patient DNR status Monitor progress D/W Raven Simmons MD October 07, 2017 08:45
[2017-10-07] MEDS: SODIUM CHLORIDE 0.9% FLUSH 10 ML FLUSH IV FLUSH SCH ×2 (09:00→21:44)
[2017-10-07] MEDS: OSELTAMIVIR PHOSPHATE 75 MG CAP PO SCH (09:25)
[2017-10-07] MEDS: FERROUS SULFATE 325 MG (65 MG ELEMENTAL IRON) TAB PO SCH (09:25)
[2017-10-07] MEDS: amLODIPine BESYLATE 5 MG TAB PO SCH (09:25)
[2017-10-07] MEDS: DOCUSATE SODIUM 50 MG/SENNA 8.6 MG TAB PO SCH ×2 (09:25→21:00)
[2017-10-07] MEDS: ALLOPURINOL 100 MG TAB PO SCH (09:25)
[2017-10-07] MEDS: FLUTICASONE PROPIONATE 50 MCG/ACT 16 GM NASAL SPRAY NASAL SCH (09:27)
[2017-10-07] MEDS: VANCOMYCIN INJ 750 MG in SODIUM CHLOR 0.9% 250 ML INJ 250 ML IV SCH (10:00)
--- NOTE | 2017-10-07 10:06 | RADRPT ---
EXAM DATE: 10/07/2017 9:58 AM EDT AGE/SEX: 87 years / Female INDICATIONS: Short of breath CLINICAL DATA: This is the patient's subsequent encounter. Patient reports that signs and symptoms h ave been present for 2 days and indicates a pain score of 0/10. MEDICAL/SURGICAL HISTORY: . CLL. Cancer (currently on chemo). None. COMPARISON: [facility] [place], CHEST SINGLE AP, 10/05/2017. . FINDINGS: Worsening bilateral pulmonary infiltrates compared to the prior examination. The heart size is stable . No significant pleural effusions. No evidence of pneumothorax. CONCLUSION: Worsening bilateral pulmonary infiltrates. Electronically signed by: Clive Farah MD 10/07/2017 10:04 AM EDT
--- NOTE | 2017-10-07 10:33 | PD.ONC.PN ---
Subjective Subjective Remarks Afebrile Patient reports she is not sure if she is breathing better or not Reports she gets very short of breath with activity Daughter at bedside worried she will have a difficult time eating with the BiPAP Objective Data Date Time Temp Pulse Resp B/P (MAP) Pulse Ox O2 Delivery O2 Flow Rate FiO2 10/07/17 08:03 100 75 10/07/17 06:00 84 10/07/17 05:38 97 80 10/07/17 05:00 92 10/07/17 04:00 86 24 135/67 (89) 93 10/07/17 04:00 90 10/07/17 03:58 100 15.00 100 10/07/17 03:00 78 10/07/17 02:00 90 10/07/17 01:00 84 10/07/17 00:19 96 80 10/07/17 00:15 87 18 122/57 (78) 96 10/07/17 00:00 80 10/06/17 23:00 89 10/06/17 22:00 86 10/06/17 21:03 97 80 10/06/17 21:01 97 BiPAP 80 10/06/17 21:00 94 10/06/17 20:00 97.8 98 28 117/58 (77) 96 10/06/17 20:00 94 10/06/17 20:00 93 Bi-Pap 15.00 10/06/17 17:33 92 80 10/06/17 16:55 113 10/06/17 16:15 Bi-Pap 10/06/17 16:05 97.6 111 20 128/60 (82) 87 10/06/17 14:55 Non-Rebreather 15.00 10/06/17 14:44 89 Non-Rebreather 15.00 10/06/17 14:15 Partial Non-Rebreather 15.00 10/06/17 12:00 97 10/06/17 11:51 97.2 89 20 108/56 (73) 100 10/07/17 10/07/17 10/07/17 07:00 15:00 23:00 Intake Total 340 ml Output Total 700 ml Balance -360 ml Result Diagram: 10/06/17 0330 10/06/17 0330 Laboratory Results Laboratory Tests Test 10/07/17 06:48 10/07/17 09:41 Random Vancomycin Level 8.8 COMMENT Culture Results Microbiology Date/Time Source Procedure Growth Status 10/05/17 11:25 Blood Peripheral Aerobic Blood Culture - Preliminary NO GROWTH IN 1 DAY Resulted 10/05/17 11:25 Blood Peripheral Anaerobic Blood Culture - Preliminary NO GROWTH IN 1 DAY Resulted 10/05/17 11:20 Blood Peripheral Aerobic Blood Culture - Preliminary NO GROWTH IN 1 DAY Resulted 10/05/17 11:20 Blood Peripheral Anaerobic Blood Culture - Preliminary NO GROWTH IN 1 DAY Resulted 10/05/17 11:15 Nasal Aspirate Influenza Types A,B Antigen (JORGE) - Final NEGATIVE FOR FLU A AND B ANTIGEN.... Complete 10/05/17 16:35 Urine Random Urine Legionella Antigen - Final PRESUMPTIVE NEGATIVE FOR LEGIONELLA P... Complete 10/05/17 16:35 Urine Random Urine Streptococcus pneumoniae Antigen (M - Final PRESUMPTIVE NEGATIVE FOR STREPTOCOCCU... Complete Imaging Studies Last 24 hours Impressions Chest X-Ray 10/07/17 0000 Signed Impressions: CONCLUSION: Worsening bilateral pulmonary infiltrates. Administered Medications Medications (Trade) Dose Ordered Sig/Yulissa Route PRN Reason Start Time Stop Time Status Last Admin Dose Admin Sodium Chloride (NS Flush) 2 ml BID IV FLUSH 10/05/17 21:00 10/07/17 09:00 Senna/Docusate Sodium (Kailee-Colace) 1 tab BID PO 10/05/17 21:00 10/07/17 09:25 Azithromycin 500 mg/Sodium Chloride 250 ml @ 250 mls/hr Q24H IV 10/06/17 14:00 10/06/17 13:22 Albuterol/ Ipratropium (Duoneb Neb) 1 ampule Q2HR NEB PRN NEB SOB/WHEEZING 10/05/17 13:45 10/06/17 14:39 Allopurinol (Zyloprim) 100 mg DAILY PO 10/06/17 09:00 10/07/17 09:25 Amlodipine Besylate (Norvasc) 2.5 mg DAILY PO 10/06/17 09:00 10/07/17 09:25 Ferrous Sulfate (Ferrous Sulfate) 325 mg DAILY PO 10/06/17 09:00 10/07/17 09:25 Levothyroxine Sodium (Synthroid) 100 mcg DAILY@0600 PO 10/06/17 06:00 10/07/17 05:33 Montelukast Sodium (Singulair) 10 mg HS PO 10/05/17 21:00 10/05/17 21:44 Fluticasone Propionate (Flonase Francisco Spr) 1 spray DAILY NASAL 10/06/17 09:00 10/07/17 09:27 Alprazolam (Xanax) 0.5 mg Q6H PRN PO anxiety/ agitation 10/05/17 17:30 10/07/17 06:17 Cefepime HCl 2000 mg/Sodium Chloride 100 ml @ 200 mls/hr Q8H IV 10/06/17 17:00 10/07/17 09:00 Oseltamivir Phosphate (Tamiflu) 75 mg BID PO 10/06/17 10:00 10/07/17 09:25 Albuterol/ Ipratropium (Duoneb Neb) 1 ampule Q4HR NEB NEB 10/06/17 16:00 10/07/17 08:01 Methylprednisolone Sodium Succinate (SoluMEDROL INJ) 40 mg Q6HR IV PUSH 10/06/17 18:00 10/07/17 05:36 Objective Remarks GENERAL: Pleasant elderly female resting in bed on BiPAP. She appears mildly anxious. SKIN: Warm and dry. HEAD: Normocephalic. EYES: No injection or drainage. NECK: Supple, trachea midline. CARDIOVASCULAR: Regular rate and rhythm without murmurs. RESPIRATORY: Lung sounds diminished. Patient on BiPAP at 70% FiO2 GASTROINTESTINAL: Abdomen soft, non-tender, nondistended. EXTREMITIES: No cyanosis, or edema. MUSCULOSKELETAL: Adequate muscle tone. NEUROLOGICAL: Moving all extremities. No obvious focal deficit. Assessment/Plan Problem List: (1) CLL (chronic lymphocytic leukemia) ICD Codes: C91.90 - Lymphoid leukemia, unspecified not having achieved remission Plan: Patient was originally diagnosed in 1994 with chronic lymphocytic leukemia..Her initial treatment consisted of chlorambucil tablets. Patient was recommended systemic therapy with ibrutinib in 2016 however she had difficulty tolerating due to side effects. She was placed back on chlorambucil until her disease progressed and she was transitioned to low-dose weekly Rituxan. Unfortunately in August 2017 she was noted to have progressive disease and received the addition of idelalisib but had trouble tolerating this due to worsening chills and fever. 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 Continue antibiotics per infectious disease 2. Patient is on 70% FiO2 on BiPAP and is currently a DNR. 3. Check periodic CBC as patient will not accept blood products. 4. Supportive care continues Attending Statement The exam, history, and the medical decision-making described in the above note were completed with the assistance of the mid-level provider. I reviewed and agree with the findings presented. I attest that I had a [id number] encounter with the patient on the same day, and personally performed and documented my assessment and findings in the medical record. Ms. Paige was seen and examined at 5:50 PM, she is presently on a BiPAP machine for management of hypoxic respiratory failure. She is clearly in respiratory distress. Her condition has worsened significantly when compared to when I saw her 24 hours ago. She is now in the [facility] cardiology unit. Her son is at bedside , he tells me the family and the patient have decided on DO NOT INTUBATE and DO NOT RESUSCITATE. Likely cause of respiratory failure appears to be pneumonia. She is on broad- spectrum antibiotic coverage. Patient's hemoglobin has improved by almost 1 g/dL over the past 24 hours, she is status post Neupogen injection on 10/06/2017 and is receiving iron infusion today. Her clinical condition is critical at this time. Problem Qualifiers (1) Anemia: Qualified Codes: D61.89 - Other specified aplastic anemias and other bone marrow failure syndromes (2) Bilateral pneumonia: Qualified Codes: J18.9 - Pneumonia, unspecified organism Natalia Mcclendon October 07, 2017 10:33 Bryon Montero MD October 07, 2017 18:08
[2017-10-07] MEDS: IRON SUCROSE INJ 100 MG in SODIUM CHLORIDE 0.9% INJ 100 ML IV SCH (11:15)
[2017-10-07] MEDS: AZITHROMYCIN INJ 500 MG in SODIUM CHLOR 0.9% 250 ML INJ 250 ML IV SCH (14:00)
--- NOTE | 2017-10-07 14:43 | HHI.PR ---
Subjective Remarks She is tachypneic. On BIPAP 04/17, FIO2 75 %. taking po liquids. Objective Vital Signs Date Time Temp Pulse Resp B/P (MAP) Pulse Ox O2 Delivery O2 Flow Rate FiO2 10/07/17 12:52 96 75 10/07/17 12:01 97.0 89 24 141/69 (93) 96 10/07/17 09:01 97 Bi-Pap 70 10/07/17 09:01 97.0 86 24 129/64 (85) 97 10/07/17 08:03 100 75 10/07/17 06:00 84 10/07/17 05:38 97 80 10/07/17 05:00 92 10/07/17 04:00 86 24 135/67 (89) 93 10/07/17 04:00 90 10/07/17 03:58 100 15.00 100 10/07/17 03:00 78 10/07/17 02:00 90 10/07/17 01:00 84 10/07/17 00:19 96 80 10/07/17 00:15 87 18 122/57 (78) 96 10/07/17 00:00 80 10/06/17 23:00 89 10/06/17 22:00 86 10/06/17 21:03 97 80 10/06/17 21:01 97 BiPAP 80 10/06/17 21:00 94 10/06/17 20:00 97.8 98 28 117/58 (77) 96 10/06/17 20:00 94 10/06/17 20:00 93 Bi-Pap 15.00 10/06/17 17:33 92 80 10/06/17 16:55 113 10/06/17 16:15 Bi-Pap 10/06/17 16:05 97.6 111 20 128/60 (82) 87 10/06/17 14:55 Non-Rebreather 15.00 10/06/17 14:44 89 Non-Rebreather 15.00 I/O 10/06/17 10/06/17 10/06/17 10/07/17 10/07/17 10/07/17 07:00 15:00 23:00 07:00 15:00 23:00 Intake Total 100 ml 1450 ml 400 ml 340 ml 100 ml Output Total 400 ml 700 ml Balance -300 ml 1450 ml 400 ml -360 ml 100 ml Intake Oral 100 ml 240 ml IV Total 1450 ml 400 ml 100 ml 100 ml Output Urine Total 400 ml 700 ml # Voids 2 1 # Bowel Movements 0 0 Result Diagram: 10/06/1732910/06/17329 Objective Remarks GENERAL: This is a thinly built, elderly white female who is pale and tachypneic. HEENT: Head is normocephalic. Pupils reactive. Sclerae were injected. Tongue was dry. Throat is injected. NECK: Supple. No lymphadenopathy. No bruits or thyroid enlargement. LUNGS: Decreased breath sounds to the periphery with scattered coarse wheezes bilaterally with basilar crackles. HEART: The heart sounds are regular, S1, S2 with no definite murmur. ABDOMEN: Soft, nontender. There is no organomegaly. Bowel sounds are active. EXTREMITIES: No edema. No skin lesions. NEUROLOGIC: She is moving all her extremities with no gross motor deficits. SKIN: Dry and cool. Assessment and Plan Assessment and Plan IMPRESSION: 1. Bilateral pneumonia with hypoxemia. 2. History of chronic lymphocytic leukemia on therapy. 3. Anemia. 4. Possible sepsis. 5. Probable aspiration. Plan : 1. Continue on BIPAP15/5 CM, an dwean FIo2 2. Antibiotics per ID. 3. CXR in am and CBC 4. Nebs qid , Duoneb 5. PO Liquids . 6. Solumedrol 40 mg IV Q6H Apollo Hughes MD October 07, 2017 14:43
--- NOTE | 2017-10-07 15:11 | HHI.PR ---
Subjective Remarks Patient on BiPAP, feels the same as yesterday, breathing is about the same. No fever or chills. However when vancomycin was being infused, her third dose, she started having facial flushing and subjective shortness of breath without desaturation. Vancomycin infusion was stopped. Objective Vitals Vital Signs Date Time Temp Pulse Resp B/P (MAP) Pulse Ox O2 Delivery O2 Flow Rate FiO2 10/07/17 12:52 96 75 10/07/17 12:01 97.0 89 24 141/69 (93) 96 10/07/17 09:01 97 Bi-Pap 70 10/07/17 09:01 97.0 86 24 129/64 (85) 97 10/07/17 08:03 100 75 10/07/17 06:00 84 10/07/17 05:38 97 80 10/07/17 05:00 92 10/07/17 04:00 86 24 135/67 (89) 93 10/07/17 04:00 90 10/07/17 03:58 100 15.00 100 10/07/17 03:00 78 10/07/17 02:00 90 10/07/17 01:00 84 10/07/17 00:19 96 80 10/07/17 00:15 87 18 122/57 (78) 96 10/07/17 00:00 80 10/06/17 23:00 89 10/06/17 22:00 86 10/06/17 21:03 97 80 10/06/17 21:01 97 BiPAP 80 10/06/17 21:00 94 10/06/17 20:00 97.8 98 28 117/58 (77) 96 10/06/17 20:00 94 10/06/17 20:00 93 Bi-Pap 15.00 10/06/17 17:33 92 80 10/06/17 16:55 113 10/06/17 16:15 Bi-Pap 10/06/17 16:05 97.6 111 20 128/60 (82) 87 I/O 10/06/17 10/06/17 10/06/17 10/07/17 10/07/17 10/07/17 07:00 15:00 23:00 07:00 15:00 23:00 Intake Total 100 ml 1450 ml 400 ml 340 ml 100 ml Output Total 400 ml 700 ml Balance -300 ml 1450 ml 400 ml -360 ml 100 ml Intake Oral 100 ml 240 ml IV Total 1450 ml 400 ml 100 ml 100 ml Output Urine Total 400 ml 700 ml # Voids 2 1 # Bowel Movements 0 0 Result Diagram: 10/06/17 03310/06/17 033 Objective Remarks Not in distress but on BiPAP. PERRL, pink conjunctiva without injection, mild facial flushing. Bilateral bronchial breath sounds but better, no wheezing. Regular rate and rhythm, systolic murmur 1/6, no rub. Abdomen soft, nontender No edema Awake alert and oriented 3, no focal deficits. A/P Problem List: (1) CLL (chronic lymphocytic leukemia) ICD Code: C91.90 - Lymphoid leukemia, unspecified not having achieved remission (2) PATRICK (acute kidney injury) ICD Code: N17.9 - Acute kidney failure, unspecified (3) Hypoxia ICD Code: R09.02 - Hypoxemia Status: Acute (4) Bilateral pneumonia ICD Code: J18.9 - Pneumonia, unspecified organism Status: Acute Assessment and Plan Assessment and Plan 87-year-old female with multiple medical problems, presented to the ED for shortness of breath for the past week. Pt presents with shortness of breath and bilateral infiltrates on CXR, consistent with pneumonia. Severe Sepsis Bilateral Pneumonia, likely bacterial Acute hypoxic respiratory failure -Infectious disease on board, continue solumedrol, continue duo nebs every 4 and every 2 hours as needed. Ativan for anxiety. On azithromycin, cefepime, Tamiflu, and vancomycin vancomycin. Respiratory panel negative, will stop Tamiflu, discussed with infectious disease. Follow-up other cultures. CXR reviewed with bilateral infiltrates, cont oxygen support, pulmonary following, on NRB, pt is DNR/DNI, will be on BiPAP per pulmonary. Repeat chest x-ray and CBC in the morning. Continue steroids per pulmonary. Mild PATRICK - Resolved, recheck BMP. Chronic lymphocytic leukemia WBC 41, Hb 8.3, PLT 60 Previous WBC and Hb were normal as of 08/22/17 Previous PLT 41, hematology following, Procrit per hematology for anemia 'since patient is a Yazidi. Recheck CBC in the morning. Chronic medical problems appears stable at this time ( HTN, hypothyroidism, gout) . Monitor. Continue home meds as indicated - levothyroxine, amolodipine, allopurinol, fish oil vitamin D, restasis, montelukast, flonase DVT prophylaxis with SCDs and subcutaneous heparin DNR/DNI Discussed with daughter today. Problem Qualifiers (1) Bilateral pneumonia: Qualified Codes: J18.9 - Pneumonia, unspecified organism Cara Singleton MD October 07, 2017 15:11
[2017-10-07 16:18] LABS: HEMATOCRIT 26.7 % (35.0-46.0); HEMOGLOBIN 8.4 GM/DL (11.6-15.3); MEAN CELL VOLUME 104.5 FL (80.0-100.0); MEAN CORPUSCULAR HEMOGLOBIN 32.9 PG (27.0-34.0); MEAN CORPUSCULAR HGB CONC 31.5 % (32.0-36.0); MEAN PLATELET VOLUME 9.5 FL (7.0-11.0); PLATELET COUNT 65 TH/MM3 (150-450); RED BLOOD COUNT 2.55 MIL/MM3 (4.00-5.30); WHITE BLOOD COUNT 87.3 TH/MM3 (4.0-11.0)
[2017-10-07 16:32] LABS: BICARBONATE 21.7 MEQ/L (21.0-32.0); CALCIUM 8.2 MG/DL (8.5-10.1); CREATININE 1.07 MG/DL (0.50-1.00)
[2017-10-07 17:33] LABS: LYMPHOCYTES 85 % (9-44); MONOCYTES 2 % (0-8); NEUTROPHIL # MANUAL DIFF 11.3 TH/MM3 (1.8-7.7); POLYS (SEG NEUTROPHILS) 13 % (16-70); SMUDGE CELLS PRESENT PRESENT
[2017-10-07 17:36] LABS: TOXIC GRANULATION 2+ (NORMAL)
[2017-10-07] MEDS: MONTELUKAST SODIUM 10 MG TAB PO SCH (21:00)
[2017-10-08] VITALS (33 sets, daily range): BP systolic 87–156; BP diastolic 42–81; PULSE 82–106; RESP 26–36; TEMP 97.4–98; O2SAT 90–99
[2017-10-08] MEDS: CEFEPIME INJ 2,000 MG in SODIUM CHLORIDE 0.9% INJ 100 ML IV SCH ×3 (00:04→21:00)
[2017-10-08] MEDS ORDERED: LORazepam 2 MG/ML VIAL IV PUSH ONE (01:45)
[2017-10-08] MEDS: RESP: ALBUTEROL 2.5 MG/IPRATROPIUM 0.5 MG NEB (SCH) NEB ×6 (02:36→23:29)
[2017-10-08] MEDS: LEVOTHYROXINE SODIUM 100 MCG TAB PO SCH (05:18)
[2017-10-08] MEDS: ALPRAZolam 0.5 MG TAB PO PRN (05:18)
[2017-10-08] MEDS: methylPREDNISolone SOD SUCC 40 MG/1 ML VIAL IV PUSH SCH ×4 (05:24→18:21)
[2017-10-08] MEDS: IRON SUCROSE INJ 100 MG in SODIUM CHLORIDE 0.9% INJ 100 ML IV SCH (08:03)
[2017-10-08] MEDS: amLODIPine BESYLATE 5 MG TAB PO SCH (08:05)
[2017-10-08] MEDS: ALLOPURINOL 100 MG TAB PO SCH (08:05)
[2017-10-08] MEDS: FERROUS SULFATE 325 MG (65 MG ELEMENTAL IRON) TAB PO SCH (08:05)
[2017-10-08] MEDS: FLUTICASONE PROPIONATE 50 MCG/ACT 16 GM NASAL SPRAY NASAL SCH (08:06)
[2017-10-08] MEDS: DOCUSATE SODIUM 50 MG/SENNA 8.6 MG TAB PO SCH ×2 (08:06→21:00)
[2017-10-08] MEDS: SODIUM CHLORIDE 0.9% FLUSH 10 ML FLUSH IV FLUSH SCH ×2 (08:06→21:00)
[2017-10-08] MEDS ORDERED: EPOETIN ALFA 40,000 UNITS/ML VIAL SQ SCH (09:00)
--- NOTE | 2017-10-08 09:26 | HHI.IDPN ---
Subjective Subjective Remarks Patient is an 87-year-old female, with known diagnosis of CLL, has been getting Rituxan for about a month, and apparently had a good response. She was started on another medication Zydelig, and she apparently started having some fever and chills which was felt to be 1 of the side effect of the medication. The new medication was stopped October 03. Over the last several days, patient started getting shortness of breath which has progressively worsened, so she was brought into the hospital for further evaluation and treatment. Patient has had some dry cough. She has had problem with allergic rhinitis which has not really worsened recently. She has not had any sputum production. She denies any chest pain. She has not had any nausea or vomiting, or any urinary complaint. She has not been exposed to any sick child. Has not been around any pets, or birds. No recent travel. On evaluation, chest x-ray showed bilateral pulmonary infiltrates. Highest temperature has been 100.9. Her WBC is 37.7, and she is not neutropenic, with an absolute neutrophil count of around 6000. Influenza testing is negative. Urine for Legionella and pneumococcal antigen is negative. Infectious disease consultation has been requested to evaluate the patient. Notes reviewed Jacob womack Remains on BIPAP CXR yesterday showed marked worsening of griffin infiltrates WBC up to 87K Patient now has a DNR status Legionella and pneumococcal antigen negative Influenza negative Blood cultures negative so far BNP low Antibiotics Cefepime Zithromax Vancomycin Current Medications Medications (Trade) Dose Ordered Sig/Yulissa Route Start Time Stop Time Status Last Admin (NS Flush) 2 ml UNSCH PRN IV FLUSH 10/05/17 13:30 (NS Flush) 2 ml BID IV FLUSH 10/05/17 21:00 10/06/17 21:00 (Tylenol) 650 mg Q4H PRN PO 10/05/17 13:30 (Reglan Inj) 5 mg Q6H PRN IV PUSH 10/05/17 13:30 (Narcan Inj) 0.4 mg UNSCH PRN IV PUSH 10/05/17 13:30 (Kailee-Colace) 1 tab BID PO 10/05/17 21:00 10/06/17 08:30 (Milk Of Magnesia Liq) 30 ml Q12H PRN PO 10/05/17 13:30 (Senokot) 17.2 mg Q12H PRN PO 10/05/17 13:30 (Dulcolax Supp) 10 mg DAILY PRN RECTAL 10/05/17 13:30 (Lactulose Liq) 30 ml DAILY PRN PO 10/05/17 13:30 Azithromycin 500 mg/Sodium Chloride 250 ml @ 250 mls/hr Q24H IV 10/06/17 14:00 10/06/17 13:22 (Duoneb Neb) 1 ampule Q2HR NEB PRN NEB 10/05/17 13:45 10/06/17 14:39 (Zyloprim) 100 mg DAILY PO 10/06/17 09:00 10/06/17 08:30 (Norvasc) 2.5 mg DAILY PO 10/06/17 09:00 (Ferrous Sulfate) 325 mg DAILY PO 10/06/17 09:00 10/06/17 08:30 (Synthroid) 100 mcg DAILY@0600 PO 10/06/17 06:00 10/07/17 05:33 (Singulair) 10 mg HS PO 10/05/17 21:00 10/05/17 21:44 Patient Own Medication PT OWN MED: RESTASIS OPTH (CYCLOSPORI... BID EACH EYE 10/05/17 21:00 Future Hold (Flonase Francisco Spr) 1 spray DAILY NASAL 10/06/17 09:00 10/06/17 11:17 (Pill Splitter) 1 ea UNSCH PRN OTHER 10/06/17 09:00 (Xanax) 0.5 mg Q6H PRN PO 10/05/17 17:30 10/07/17 06:17 (Morphine Inj) 2 mg Q4H PRN IV PUSH 10/05/17 17:30 Cefepime HCl 2000 mg/Sodium Chloride 100 ml @ 200 mls/hr Q8H IV 10/06/17 17:00 10/07/17 00:21 (Tamiflu) 75 mg BID PO 10/06/17 10:00 10/06/17 11:17 (Duoneb Neb) 1 ampule Q4HR NEB NEB 10/06/17 16:00 10/07/17 08:01 (SoluMEDROL INJ) 40 mg Q6HR IV PUSH 10/06/17 18:00 10/07/17 05:36 Vancomycin HCl 750 mg/Sodium Chloride 250 ml @ 250 mls/hr Q24H IV 10/07/17 10:00 Pharmacy Profile Note 0 ml @ 0 mls/hr UNSCH OTHER 10/06/17 16:45 ([facility] [place] [facility] Ordered Lab Info) SPECIFIC LAB TO BE DRAWN:VANCOMYCIN TROUGH DATE TO... ONCE ONCE .XX 10/09/17 09:45 10/09/17 09:46 Lines IV site no evidence of infection Past Medical History CLL (dx 1994) HTN CKD Osteoarthritis Osteoporosis Hypothyroidism Peripheral vascular disease TIA Cellulitis RLE 2017 Past Surgical History Cholecystectomy 2000 R cataract removal 2016 Complete hysterecomy 1976 R carotid endarterectomy Allergies: Coded Allergies: penicillin G (Unverified Allergy, Severe, HIVES, SWELLING, 10/05/17) Objective . Vital Signs Date Time Temp Pulse Resp B/P (MAP) Pulse Ox O2 Delivery O2 Flow Rate FiO2 10/08/17 08:00 93 10/08/17 08:00 Bi-Pap 10/08/17 08:00 97.8 98 26 156/81 (106) 90 10/08/17 07:29 94 85 10/08/17 06:00 96 10/08/17 05:45 98 90 10/08/17 05:00 96 10/08/17 04:00 82 10/08/17 03:53 83 26 102/49 (66) 94 10/08/17 03:30 94 100 10/08/17 03:00 92 10/08/17 02:00 96 10/08/17 02:00 92 100 10/08/17 01:45 97 30 143/69 (93) 94 10/08/17 01:00 86 10/08/17 00:00 106 10/07/17 23:15 105 28 131/69 (89) 91 10/07/17 23:08 89 100 10/07/17 23:00 92 10/07/17 22:00 98 10/07/17 21:00 92 10/07/17 20:17 94 Bi-Pap 100 10/07/17 20:10 97.8 98 28 132/67 (88) 94 10/07/17 20:00 98 10/07/17 19:02 95 100 10/07/17 19:00 100 10/07/17 18:01 102 10/07/17 17:00 96 10/07/17 16:01 94 10/07/17 15:15 97.0 97 26 165/77 (106) 97 10/07/17 15:00 94 10/07/17 14:00 92 10/07/17 13:00 88 10/07/17 12:52 96 75 10/07/17 12:01 97.0 89 24 141/69 (93) 96 10/07/17 12:00 86 10/07/17 11:00 88 10/07/17 10:00 86 . Laboratory Tests Test 10/07/17 15:52 White Blood Count 87.3 TH/MM3 Red Blood Count 2.55 MIL/MM3 Hemoglobin 8.4 GM/DL Hematocrit 26.7 % Mean Corpuscular Volume 104.5 FL Mean Corpuscular Hemoglobin 32.9 PG Mean Corpuscular Hemoglobin Concent 31.5 % Red Cell Distribution Width 18.0 % Platelet Count 65 TH/MM3 Mean Platelet Volume 9.5 FL CBC Comment AUTO DIFF Differential Total Cells Counted 100 Neutrophils % (Manual) 13 % Lymphocytes % 85 % Monocytes % 2 % Neutrophils # (Manual) 11.3 TH/MM3 Differential Comment FINAL DIFF MANUAL Smudge Cells PRESENT Toxic Granulation 2+ Platelet Estimate LOW Platelet Morphology Comment NORMAL Laboratory Tests Test 10/07/17 15:52 Blood Urea Nitrogen 34 MG/DL Creatinine 1.07 MG/DL Random Glucose 115 MG/DL Calcium Level 8.2 MG/DL Sodium Level 145 MEQ/L Potassium Level 4.1 MEQ/L Chloride Level 114 MEQ/L Carbon Dioxide Level 21.7 MEQ/L Anion Gap 9 MEQ/L Estimat Glomerular Filtration Rate 48 ML/MIN Microbiology Date/Time Source Procedure Growth Status 10/05/17 11:25 Blood Peripheral Aerobic Blood Culture - Preliminary NO GROWTH IN 2 DAYS Resulted 10/05/17 11:25 Blood Peripheral Anaerobic Blood Culture - Preliminary NO GROWTH IN 2 DAYS Resulted 10/05/17 11:20 Blood Peripheral Aerobic Blood Culture - Preliminary NO GROWTH IN 2 DAYS Resulted 10/05/17 11:20 Blood Peripheral Anaerobic Blood Culture - Preliminary NO GROWTH IN 2 DAYS Resulted 10/05/17 11:15 Nasal Aspirate Influenza Types A,B Antigen (JORGE) - Final NEGATIVE FOR FLU A AND B ANTIGEN.... Complete 10/05/17 16:35 Urine Random Urine Legionella Antigen - Final PRESUMPTIVE NEGATIVE FOR LEGIONELLA P... Complete 10/05/17 16:35 Urine Random Urine Streptococcus pneumoniae Antigen (M - Final PRESUMPTIVE NEGATIVE FOR STREPTOCOCCU... Complete Imaging Last Impressions Chest X-Ray 10/05/17 1105 Signed Impressions: CONCLUSION: Bilateral infiltrates. Physical Exam GENERAL: awake and alert, SOB at rest, on BIPAP SKIN: Warm and dry. No generalized rash, no ecchymoses and no evidence of embolic lesions. HEAD: Atraumatic. Normocephalic. No temporal wasting, or tenderness. EYES: [place] conjunctiva. No petechia or hemorrhage. Pupils equal, round and reactive to light. Extraocular movements full and intact. No scleral icterus. No injection or drainage. EARS, NOSE AND THROAT: Nose without bleeding or purulent nasal discharge. No sinus tenderness. Mucous membranes pink and moist. No oral lesions noted. No exudate. No oral thrush. NECK: Trachea midline. Supple and not tender, no meningeal signs CARDIOVASCULAR: Regular rate and rhythm. No murmurs, rubs or gallops heard RESPIRATORY: Coarse breath sounds bilaterally, with rhonchi. ABDOMEN: Soft, non-tender, nondistended. Bowel sounds present and normoactive. No guarding. No rebound. No organomegaly. EXTREMITIES: No clubbing, cyanosis, or edema.No joint effusion, has good ROM. No calf tenderness. Well perfused and warm. NEUROLOGICAL: Awake and alert. Cranial nerves grossly intact. Motor grossly within normal limits. PSYCHIATRIC: anxious, cooperative. LINE: No evidence of infection Assessment & Plan Remarks IMPRESSION Sepsis on admission with pulmonary symptoms Bilateral pulmonary infiltrates - concern for PNA (immunocompromised) - ?drug adverse reaction (Zydelig) Respiratory failure, on BIPAP mask now Allergy ro PCN, tolerating cephalosporin RECOMMENDATION Follow cultures Continue empiric antibiotics - Zithromax for atypical - Cefepime for GNR coverage - Vanco for GPC coverage including MRSA May need transfer to ICU for closer monitoring of her respiratory status Doing poorly, and CXR worsening Monitor progress Raven López MD October 08, 2017 09:26
[2017-10-08] MEDS: VANCOMYCIN INJ 750 MG in SODIUM CHLOR 0.9% 250 ML INJ 250 ML IV SCH (10:00)
[2017-10-08] MEDS: MORPHINE SULFATE 4 MG/ML INJ IV PUSH PRN ×2 (10:52→15:02)
--- NOTE | 2017-10-08 11:05 | PD.ONC.PN ---
Subjective Subjective Remarks Afebrile overnight Pt appears tachypneic On Bipap Pt reports having "pain all over" Objective Data Date Time Temp Pulse Resp B/P (MAP) Pulse Ox O2 Delivery O2 Flow Rate FiO2 10/08/17 08:00 93 10/08/17 08:00 Bi-Pap 10/08/17 08:00 97.8 98 26 156/81 (106) 90 10/08/17 07:29 94 85 10/08/17 06:00 96 10/08/17 05:45 98 90 10/08/17 05:00 96 10/08/17 04:00 82 10/08/17 03:53 83 26 102/49 (66) 94 10/08/17 03:30 94 100 10/08/17 03:00 92 10/08/17 02:00 96 10/08/17 02:00 92 100 10/08/17 01:45 97 30 143/69 (93) 94 10/08/17 01:00 86 10/08/17 00:00 106 10/07/17 23:15 105 28 131/69 (89) 91 10/07/17 23:08 89 100 10/07/17 23:00 92 10/07/17 22:00 98 10/07/17 21:00 92 10/07/17 20:17 94 Bi-Pap 100 10/07/17 20:10 97.8 98 28 132/67 (88) 94 10/07/17 20:00 98 10/07/17 19:02 95 100 10/07/17 19:00 100 10/07/17 18:01 102 10/07/17 17:00 96 10/07/17 16:01 94 10/07/17 15:15 97.0 97 26 165/77 (106) 97 10/07/17 15:00 94 10/07/17 14:00 92 10/07/17 13:00 88 10/07/17 12:52 96 75 10/07/17 12:01 97.0 89 24 141/69 (93) 96 10/07/17 12:00 86 10/07/17 11:00 88 10/08/17 10/08/17 10/08/17 07:00 15:00 23:00 Intake Total 200 ml Output Total 100 ml Balance 100 ml Result Diagram: 10/07/17 1552 10/07/17 1552 Laboratory Results Laboratory Tests Test 10/07/17 15:52 10/08/17 10:30 White Blood Count 87.3 TH/MM3 Red Blood Count 2.55 MIL/MM3 Hemoglobin 8.4 GM/DL Hematocrit 26.7 % Mean Corpuscular Volume 104.5 FL Mean Corpuscular Hemoglobin 32.9 PG Mean Corpuscular Hemoglobin Concent 31.5 % Red Cell Distribution Width 18.0 % Platelet Count 65 TH/MM3 Mean Platelet Volume 9.5 FL CBC Comment AUTO DIFF Differential Total Cells Counted 100 Neutrophils % (Manual) 13 % Lymphocytes % 85 % Monocytes % 2 % Neutrophils # (Manual) 11.3 TH/MM3 Differential Comment FINAL DIFF MANUAL Smudge Cells PRESENT Toxic Granulation 2+ Platelet Estimate LOW Platelet Morphology Comment NORMAL Blood Urea Nitrogen 34 MG/DL Creatinine 1.07 MG/DL Random Glucose 115 MG/DL Calcium Level 8.2 MG/DL Sodium Level 145 MEQ/L Potassium Level 4.1 MEQ/L Chloride Level 114 MEQ/L Carbon Dioxide Level 21.7 MEQ/L Anion Gap 9 MEQ/L Estimat Glomerular Filtration Rate 48 ML/MIN Culture Results Microbiology Date/Time Source Procedure Growth Status 10/05/17 11:25 Blood Peripheral Aerobic Blood Culture - Preliminary NO GROWTH IN 2 DAYS Resulted 10/05/17 11:25 Blood Peripheral Anaerobic Blood Culture - Preliminary NO GROWTH IN 2 DAYS Resulted 10/05/17 11:20 Blood Peripheral Aerobic Blood Culture - Preliminary NO GROWTH IN 2 DAYS Resulted 10/05/17 11:20 Blood Peripheral Anaerobic Blood Culture - Preliminary NO GROWTH IN 2 DAYS Resulted 10/05/17 11:15 Nasal Aspirate Influenza Types A,B Antigen (JORGE) - Final NEGATIVE FOR FLU A AND B ANTIGEN.... Complete 10/05/17 16:35 Urine Random Urine Legionella Antigen - Final PRESUMPTIVE NEGATIVE FOR LEGIONELLA P... Complete 10/05/17 16:35 Urine Random Urine Streptococcus pneumoniae Antigen (M - Final PRESUMPTIVE NEGATIVE FOR STREPTOCOCCU... Complete Administered Medications Medications (Trade) Dose Ordered Sig/Yulissa Route PRN Reason Start Time Stop Time Status Last Admin Dose Admin Sodium Chloride (NS Flush) 2 ml BID IV FLUSH 10/05/17 21:00 10/08/17 08:06 Senna/Docusate Sodium (Kailee-Colace) 1 tab BID PO 10/05/17 21:00 10/07/17 09:25 Azithromycin 500 mg/Sodium Chloride 250 ml @ 250 mls/hr Q24H IV 10/06/17 14:00 10/07/17 14:00 Albuterol/ Ipratropium (Duoneb Neb) 1 ampule Q2HR NEB PRN NEB SOB/WHEEZING 10/05/17 13:45 10/06/17 14:39 Allopurinol (Zyloprim) 100 mg DAILY PO 10/06/17 09:00 10/08/17 08:05 Amlodipine Besylate (Norvasc) 2.5 mg DAILY PO 10/06/17 09:00 10/08/17 08:05 Levothyroxine Sodium (Synthroid) 100 mcg DAILY@0600 PO 10/06/17 06:00 10/08/17 05:18 Montelukast Sodium (Singulair) 10 mg HS PO 10/05/17 21:00 10/05/17 21:44 Fluticasone Propionate (Flonase Francisco Spr) 1 spray DAILY NASAL 10/06/17 09:00 10/07/17 09:27 Alprazolam (Xanax) 0.5 mg Q6H PRN PO anxiety/ agitation 10/05/17 17:30 10/08/17 05:18 Morphine Sulfate (Morphine Inj) 2 mg Q4H PRN IV PUSH pain 2-10 10/05/17 17:30 10/08/17 10:52 Cefepime HCl 2000 mg/Sodium Chloride 100 ml @ 200 mls/hr Q8H IV 10/06/17 17:00 10/08/17 08:04 Albuterol/ Ipratropium (Duoneb Neb) 1 ampule Q4HR NEB NEB 10/06/17 16:00 10/08/17 10:39 Methylprednisolone Sodium Succinate (SoluMEDROL INJ) 40 mg Q6HR IV PUSH 10/06/17 18:00 10/08/17 10:52 Vancomycin HCl 750 mg/Sodium Chloride 250 ml @ 250 mls/hr Q24H IV 10/07/17 10:00 10/08/17 10:00 Iron Sucrose 100 mg/Sodium Chloride 105 ml @ 105 mls/hr DAILY IV 10/07/17 11:15 10/09/17 09:59 10/08/17 08:03 Objective Remarks GENERAL: Pleasant elderly female resting in bed on BiPAP. She appears anxious SKIN: Warm and dry. HEAD: Normocephalic. EYES: No injection or drainage. NECK: Supple, trachea midline. CARDIOVASCULAR: Regular rate and rhythm without murmurs. RESPIRATORY: Lung sounds diminished anteriorly. Patient on BiPAP at 90% FiO2. + Tachypneic GASTROINTESTINAL: Abdomen soft, non-tender, nondistended. EXTREMITIES: No cyanosis, or edema. MUSCULOSKELETAL: Adequate muscle tone. NEUROLOGICAL: Moving all extremities. No obvious focal deficit. Assessment/Plan Problem List: (1) CLL (chronic lymphocytic leukemia) ICD Codes: C91.90 - Lymphoid leukemia, unspecified not having achieved remission Plan: Patient was originally diagnosed in 1994 with chronic lymphocytic leukemia..Her initial treatment consisted of chlorambucil tablets. Patient was recommended systemic therapy with ibrutinib in 2016 however she had difficulty tolerating due to side effects. She was placed back on chlorambucil until her disease progressed and she was transitioned to low-dose weekly Rituxan. Unfortunately in August 2017 she was noted to have progressive disease and received the addition of idelalisib but had trouble tolerating this due to worsening chills and fever. 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 Check IgG level. 2. If less than 500, will give IVIG. 3. Give erythropoietin 40k units -- this week 4. Supportive care. Discussed with Dr Servin Discussed with CIC RN Problem Qualifiers (1) Anemia: Qualified Codes: D61.89 - Other specified aplastic anemias and other bone marrow failure syndromes (2) Bilateral pneumonia: Qualified Codes: J18.9 - Pneumonia, unspecified organism Natalia Mcclendon October 08, 2017 11:05 Jacob Del Rosario MD October 09, 2017 15:01
[2017-10-08] MEDS ORDERED: ACETAMINOPHEN 325 MG TAB PO ONE (12:00)
[2017-10-08] MEDS ORDERED: diphenhydrAMINE HCL 25 MG CAP PO ONE (12:00)
[2017-10-08] MEDS ORDERED: DEXTROSE 5% IN WATE 500 ML INJ 500 ML OTHER ONE (12:36)
[2017-10-08] MEDS ORDERED: EPINEPHrine HCL (1:1000) 1 MG/ML VIAL OTHER PRN (12:45)
[2017-10-08] MEDS ORDERED: diphenhydrAMINE HCL 50 MG/ML VIAL IV PUSH PRN (12:45)
[2017-10-08] MEDS ORDERED: IMMUNE GLOBULIN INJ 20 GM in SYRINGE/BAG 1 EA IV SCH (12:45)
--- NOTE | 2017-10-08 13:32 | HHI.PR ---
Subjective Remarks seen with daughter- randa at bedside tachypneic requiring 100% awake and feels dry seen with Randa- and she agrees that her Mom looks miserable Objective Vitals Vital Signs Date Time Temp Pulse Resp B/P (MAP) Pulse Ox O2 Delivery O2 Flow Rate FiO2 10/08/17 12:00 97.8 106 28 151/72 (98) 90 10/08/17 12:00 106 10/08/17 11:08 92 95 10/08/17 11:07 26 10/08/17 11:00 102 10/08/17 10:00 94 10/08/17 09:00 90 10/08/17 08:00 93 10/08/17 08:00 Bi-Pap 10/08/17 08:00 97.8 98 26 156/81 (106) 90 10/08/17 07:29 94 85 10/08/17 07:00 92 10/08/17 06:00 96 10/08/17 05:45 98 90 10/08/17 05:00 96 10/08/17 04:00 82 10/08/17 03:53 83 26 102/49 (66) 94 10/08/17 03:30 94 100 10/08/17 03:00 92 10/08/17 02:00 96 10/08/17 02:00 92 100 10/08/17 01:45 97 30 143/69 (93) 94 10/08/17 01:00 86 10/08/17 00:00 106 10/07/17 23:15 105 28 131/69 (89) 91 10/07/17 23:08 89 100 10/07/17 23:00 92 10/07/17 22:00 98 10/07/17 21:00 92 10/07/17 20:17 94 Bi-Pap 100 10/07/17 20:10 97.8 98 28 132/67 (88) 94 10/07/17 20:00 98 10/07/17 19:02 95 100 10/07/17 19:00 100 10/07/17 18:01 102 10/07/17 17:00 96 10/07/17 16:01 94 10/07/17 15:15 97.0 97 26 165/77 (106) 97 10/07/17 15:00 94 10/07/17 14:00 92 I/O 10/07/17 10/07/17 10/07/17 10/08/17 10/08/17 10/08/17 07:00 15:00 23:00 07:00 15:00 23:00 Intake Total 340 ml 100 ml 240 ml 200 ml Output Total 700 ml 200 ml 100 ml Balance -360 ml 100 ml 40 ml 100 ml Intake Oral 240 ml 240 ml 100 ml IV Total 100 ml 100 ml 100 ml Output Urine Total 700 ml 200 ml 100 ml # Voids 2 1 # Bowel Movements 0 0 Result Diagram: 10/07/17 1552 10/07/17 1552 Imaging Last Impressions Chest X-Ray 10/07/17 0000 Signed Impressions: CONCLUSION: Worsening bilateral pulmonary infiltrates. Objective Remarks awake, in distreess, 100% BiPAp anicteric tachycaridc decreased breath sounds abdomen soft, extremities no edema moves all extrmeities A/P Problem List: (1) CLL (chronic lymphocytic leukemia) ICD Code: C91.90 - Lymphoid leukemia, unspecified not having achieved remission (2) PATRICK (acute kidney injury) ICD Code: N17.9 - Acute kidney failure, unspecified (3) Hypoxia ICD Code: R09.02 - Hypoxemia Status: Acute (4) Bilateral pneumonia ICD Code: J18.9 - Pneumonia, unspecified organism Status: Acute Assessment and Plan 87-year-old female with multiple medical problems, presented to the ED for shortness of breath for the past week. Pt presents with shortness of breath and bilateral infiltrates on CXR, consistent with pneumonia. Severe Sepsis Bilateral Pneumonia, likely bacterial Acute hypoxic respiratory failure -Infectious disease on board, continue solumedrol, continue duo nebs every 4 and every 2 hours as needed. Ativan for anxiety. On azithromycin, cefepime, Tamiflu, and vancomycin vancomycin. Respiratory panel negative, will stop Tamiflu, discussed with infectious disease. Follow-up other cultures. CXR reviewed with bilateral infiltrates, cont oxygen support, pulmonary following, on NRB, pt is DNR/DNI, will be on BiPAP per pulmonary. Repeat chest x-ray and CBC in the morning. Continue steroids per pulmonary. Mild PATRICK - Resolved, continue gentle IVF- poor po ff BMP. Chronic lymphocytic leukemia WBC 41, Hb 8.3, PLT 60 Previous WBC and Hb were normal as of 08/22/17 Previous PLT 41, hematology following, Procrit per hematology for anemia 'since patient is a [employer]. Recheck CBC in the morning. Chronic medical problems appears stable at this time ( HTN, hypothyroidism, gout) . Monitor. Continue home meds as indicated - levothyroxine, amolodipine, allopurinol, fish oil vitamin D, restasis, montelukast, flonase DVT prophylaxis with SCDs and subcutaneous heparin DNR/DNI Discussed with daughter bedside - today.Randa and son Benigno on the phone- worsening infiltrates, high f102 requirement Benigno is focused on her Mom not getting humidified 02- I called RT to have this place and address this both agress to consult palliative care to determine goals of care. confirmed DNR /DNI d/w Dr. Walker possible hospice candidate- in patient or hospice care center Problem Qualifiers (1) Bilateral pneumonia: Qualified Codes: J18.9 - Pneumonia, unspecified organism Angle Servin MD October 08, 2017 13:32
[2017-10-08] MEDS: AZITHROMYCIN INJ 500 MG in SODIUM CHLOR 0.9% 250 ML INJ 250 ML IV SCH (13:43)
--- NOTE | 2017-10-08 14:01 | PD.CONS ---
Consult Service Palliative Care . Consult Requested By Dr. Servin . Primary Care Physician No Primary Care Physician . Reason for Consultation a. To assist with evaluation and management of symptoms including: dyspnea ; agitation b. To assist medical decision maker(s) with: better understanding of current medical conditions; weighing benefits/burdens of medical treatment options; making medical treatment decisions. . HPI History of Present Illness Ms. Paige is an 87 y/o female Lutheran who was initially diagnosed with chronic lymphocytic leukemia in 1994. She had Leukeran therapy early on but was primarily just watched conservatively. 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 She was tried on Imbruvica twice but experienced rashes both times. In 02/2017 a PET scan showed diffuse bulky lymphadenopathy with splenomegaly and liver involvement. WBC was 186,000 at that time. Repeat bone marrow bx showed 90% involvement and confirmed both the 11q and 17p deletions. Chemotherapy that might cause further myelosuppression was avoided as she was Anglican and did not want blood transfusions. More recently, under the care of Dr. Del Rosario, she has been tried on Rituxan. With evidence of progressive disease in August 2017, Idelalisib was added. She received the Idelalisib from - 10/03/17 but then presented to [facility] with chills, fever and a CXR showing bilateral infiltrates. In spite of aggressive care in the hospital, the patient has declined. At time of my visit, the patient is on BiPAP, in distress, with 02 sats in the 70s. Patient has a living will indicating she would not want life prolonging measures if she had a terminal condition. However, the health care surrogate was having a difficult time accepting that she was terminal. Patient had been clear, however, that she did not want to be placed on machines. Staff, understandably, was being very conservative with comfort medications as it seemed the surrogate did not want her intubated, but was also not OK that she would . Along with the patient's dyspnea, there has been severe agitation. She has been restless in bed, often fighting the BiPap. Patient is unable to quantify her symptoms or provide additional information. . . Function/Cognitive Trajectory Family reports the patient had suffered a very significant decline over the last year and especially over the last weeks. They indicated that every time they seemed to find a medication that would help the leukemia, she would develop an adverse reaction to the medication. Ms. Paige has been mostly homebound for months. Though she lived alone, her daughter lived just [address] and would visit at least once a day. The patient would only go out of the house to go to doctor appts. While not having an adverse reaction to meds, the patient usually felt well enough to cook her own breakfast and move around the house. She had some severe arthritis, but usually did not complain of pain. . . Review of Systems ROS Limitations: Clinical Condition Constitutional: COMPLAINS OF: Diaphoretic episodes, Fatigue, Fever, Weight loss , Change in appetite, Pain, Generalized weakness, Sleep problems, DENIES: Weight gain, Dizziness Endocrine: DENIES: Polydipsia, Polyuria, Polyphagia Eyes: COMPLAINS OF: Vision loss Ears, nose, mouth, throat: DENIES: Hearing loss, Throat pain, Hoarseness, Running Nose, Epistaxis Respiratory: COMPLAINS OF: Cough, Wheezing, Sputum production, Shortness of breath, DENIES: Snoring, Hemoptysis Cardiovascular: COMPLAINS OF: Palpitations, Dyspnea on Exertion, DENIES: Chest pain, Syncope Gastrointestinal: DENIES: Abdominal pain, Bloody stools, Constipation, Diarrhea , Nausea, Vomiting Genitourinary: DENIES: Urinary frequency, Urinary incontinence, Dysuria, Nocturia Musculoskeletal: COMPLAINS OF: Joint pain, Stiffness, DENIES: Back pain, Neck pain Integumentary: COMPLAINS OF: Rash Hematologic/Lymphatics: COMPLAINS OF: Bruising, Lymphadenopathy, DENIES: History of transfusions Immunologic/Allergic: DENIES: Eczema Neurologic: DENIES: Headache, Localized weakness, Paresthesias, Seizures, Tremor Psychiatric: COMPLAINS OF: Anxiety, Confusion, Agitation, DENIES: Depression, Hallucinations Past Family Social History Coded Allergies: penicillin G (Unverified Allergy, Severe, HIVES, SWELLING, 10/05/17) Past Medical History CLL (dx 1994) HTN CKD Osteoarthritis Osteoporosis Hypothyroidism Peripheral vascular disease TIA Cellulitis RLE 2017 Past Surgical History Cholecystectomy 1999 R cataract removal 2016 Complete hysterecomy 1976 R carotid endarterectomy Bone marrow biopsy x 2 . Reported Medications Pre-hospital medications included the following: Restasis Opth (Cyclosporine Opth) 0.05% Emul 1 Drop EACH EYE BID Lutein 20 Mg Cap 20 Mg PO DAILY Fish Oil + D3 (Fish Oil-Cholecalciferol) 1,200-1,000 Mg-Unit Cap 1 Cap PO DAILY Proair Hfa 8.5 GM Inh (Albuterol Sulfate) 90 Mcg/Act Aer 2 Puff INH Q4HR PRN Flonase Nasal [place] (Fluticasone Nasal [place]) 50 Mcg/Act [place] 50 Mcg EACH NARE DAILY Mapap (Acetaminophen) 325 Mg Tab 650 Mg PO Q6HR PRN Klor-Con 10 (Potassium Chloride) 10 Meq Tab 10 Meq PO BID Furosemide 20 Mg Tab 20 Mg PO DAILY Synthroid (Levothyroxine Sodium) 100 Mcg Tab 100 Mcg PO DAILY Montelukast (Montelukast Sodium) 10 Mg Tab 10 Mg PO HS Allopurinol 100 Mg Tab 100 Mg PO DAILY Ferrous Sulfate 325 Mg (65 Mg Iron) Tablet 325 Mg PO DAILY Alendronate (Alendronate Sodium) 70 Mg Tab 70 Mg PO Q7D Amlodipine (Amlodipine Besylate) 2.5 Mg Tab 2.5 Mg PO DAILY . Current Medications Medications (Trade) Dose Ordered Sig/Yulissa Route Start Time Stop Time Status Last Admin (NS Flush) 2 ml UNSCH PRN IV FLUSH 10/05/17 13:30 (NS Flush) 2 ml BID IV FLUSH 10/05/17 21:00 10/08/17 08:06 (Tylenol) 650 mg Q4H PRN PO 10/05/17 13:30 (Reglan Inj) 5 mg Q6H PRN IV PUSH 10/05/17 13:30 (Narcan Inj) 0.4 mg UNSCH PRN IV PUSH 10/05/17 13:30 (Kailee-Colace) 1 tab BID PO 10/05/17 21:00 10/07/17 09:25 (Milk Of Magnesia Liq) 30 ml Q12H PRN PO 10/05/17 13:30 (Senokot) 17.2 mg Q12H PRN PO 10/05/17 13:30 (Dulcolax Supp) 10 mg DAILY PRN RECTAL 10/05/17 13:30 (Lactulose Liq) 30 ml DAILY PRN PO 10/05/17 13:30 Azithromycin 500 mg/Sodium Chloride 250 ml @ 250 mls/hr Q24H IV 10/06/17 14:00 10/08/17 13:43 (Duoneb Neb) 1 ampule Q2HR NEB PRN NEB 10/05/17 13:45 10/06/17 14:39 (Zyloprim) 100 mg DAILY PO 10/06/17 09:00 10/08/17 08:05 (Norvasc) 2.5 mg DAILY PO 10/06/17 09:00 10/08/17 08:05 (Synthroid) 100 mcg DAILY@0600 PO 10/06/17 06:00 10/08/17 05:18 (Singulair) 10 mg HS PO 10/05/17 21:00 10/05/17 21:44 Patient Own Medication PT OWN MED: RESTASIS OPTH (CYCLOSPORI... BID EACH EYE 10/05/17 21:00 Future Hold (Flonase Francisco Spr) 1 spray DAILY NASAL 10/06/17 09:00 10/07/17 09:27 (Pill Splitter) 1 ea UNSCH PRN OTHER 10/06/17 09:00 (Xanax) 0.5 mg Q6H PRN PO 10/05/17 17:30 10/08/17 05:18 (Morphine Inj) 2 mg Q4H PRN IV PUSH 10/05/17 17:30 10/08/17 10:52 (Duoneb Neb) 1 ampule Q4HR NEB NEB 10/06/17 16:00 10/08/17 10:39 (SoluMEDROL INJ) 40 mg Q6HR IV PUSH 10/06/17 18:00 10/08/17 10:52 Vancomycin HCl 750 mg/Sodium Chloride 250 ml @ 250 mls/hr Q24H IV 10/07/17 10:00 10/08/17 10:00 Pharmacy Profile Note 0 ml @ 0 mls/hr UNSCH OTHER 10/06/17 16:45 ([facility] Ordered Lab Info) SPECIFIC LAB TO BE DRAWN:VANCOMYCIN TROUGH DATE TO... ONCE ONCE .XX 10/09/17 09:45 10/09/17 09:46 Iron Sucrose 100 mg/Sodium Chloride 105 ml @ 105 mls/hr DAILY IV 10/07/17 11:15 10/09/17 09:59 10/08/17 08:03 (Epogen Inj) 40,000 units MoWeFr SQ 10/08/17 09:00 10/08/17 12:12 Cefepime HCl 2000 mg/Sodium Chloride 100 ml @ 200 mls/hr Q12HR IV 10/08/17 21:00 Dextrose 500 ml @ 30 mls/hr [id number] ONCE OTHER 10/08/17 12:36 10/09/17 05:15 10/08/17 12:36 Immune Globulin 20 gm/Syringe / Bag 200 ml @ 16.2 mls/hr Q24H IV 10/08/17 12:45 10/09/17 01:06 10/08/17 13:30 (Benadryl Inj) 50 mg UNSCH PRN IV PUSH 10/08/17 12:45 10/10/17 12:44 (Adrenalin (1:1000) Inj) 0.3 mg Q10M PRN OTHER 10/08/17 12:45 10/10/17 12:44 . Family History Both parents were heavy smokers and of COPD (emphysema). There is another brother with COPD. No known family history of cancer or hematologic malignancies. . Substance Use Tobacco: Lifetime non-smoker but had significant 2nd hand smoke exposure Alcohol: No history of abuse Prescription med abuse: No known abuse Illicits: No known use of illicits. . Psychosocial History Pt is originally from [place] and has lived in [place] all of her life. She was a homemaker. She was once and is . She has 3 children -- two sons and a daughter -- all live in [place]. . Spiritual/Cultural Factors Lutheran. Does not accept blood transfusions. . Living Will: Completed, but not made available Health Care Surrogate: Completed, but not made available Durable Power of Division Road Supervisor: Never completed Date completed: 01/23/2016 . Health Care Surrogate(s): Health care surrogate is her son -- Geovanny Paige Alternate health care surrogate is daughter -- Randa Solorzano . Documented care wishes: Patient has completed a special Living Will for [employer] that emphasizes her wish not to be given transfusions of whole blood, red cells, white cells, platelets, or plasma. In addition, it is also a typical living will indicating she would NOT want life prolonging measures if she were found to have a terminal or end stage condition. . Today's verbally stated goals: Unable to verbally state goals today. . Family/friends goals: Family indicates that they want to transition to "comfort measures only." They don't want to continue to see her suffer. . Ethical and Legal Issues Patient is incapacitated to make her own healthcare decisions. There is very little probability that she will regain the capacity to do so. . Physical Exam Vital Signs Date Time Temp Pulse Resp B/P (MAP) Pulse Ox O2 Delivery O2 Flow Rate FiO2 10/08/17 13:33 32 10/08/17 13:30 100 32 137/64 10/08/17 12:00 97.8 106 28 151/72 (98) 90 10/08/17 12:00 106 10/08/17 11:08 92 95 10/08/17 11:07 26 10/08/17 11:00 102 10/08/17 10:00 94 10/08/17 09:00 90 10/08/17 08:00 93 10/08/17 08:00 Bi-Pap 10/08/17 08:00 97.8 98 26 156/81 (106) 90 10/08/17 07:29 94 85 10/08/17 07:00 92 10/08/17 06:00 96 10/08/17 05:45 98 90 10/08/17 05:00 96 10/08/17 04:00 82 10/08/17 03:53 83 26 102/49 (66) 94 10/08/17 03:30 94 100 10/08/17 03:00 92 10/08/17 02:00 96 10/08/17 02:00 92 100 10/08/17 01:45 97 30 143/69 (93) 94 10/08/17 01:00 86 10/08/17 00:00 106 10/07/17 23:15 105 28 131/69 (89) 91 10/07/17 23:08 89 100 10/07/17 23:00 92 10/07/17 22:00 98 10/07/17 21:00 92 10/07/17 20:17 94 Bi-Pap 100 10/07/17 20:10 97.8 98 28 132/67 (88) 94 10/07/17 20:00 98 10/07/17 19:02 95 100 10/07/17 19:00 100 10/07/17 18:01 102 10/07/17 17:00 96 10/07/17 16:01 94 10/07/17 15:15 97.0 97 26 165/77 (106) 97 10/07/17 15:00 94 10/07/17 14:00 92 At time of my visit, pulse oximetry had fallen into the 70s on BiPAP. . Exam CONSTITUTIONAL/GENERAL: This is a frail appearing elderly female in respiratory distress, agitated, using accessory muscles, unable to communicate. TUBES/LINES/DRAINS: BiPAP mask; peripheral IVs; SCDs SKIN: No jaundice, rashes, or lesions. Scattered ecchymoses. No wounds seen anteriorly. Skin temperature appropriate. Not diaphoretic. HEAD: Atraumatic. Normocephalic. EYES: Pupils equal and round and reactive. Cannot evaluate extraocular motions. No scleral icterus. No injection or drainage. Fundi not examined. ENT: unable to assess hearing. Nose without bleeding or purulent drainage. Throat without visible erythema, exudates, masses, or lesions though difficult to assess due to need for BiPAP mask NECK: Trachea midline. Supple, nontender. No palpable thyroid enlargement or nodularity. CARDIOVASCULAR: Regular rate and rhythm without murmurs, gallops, or rubs. No JVD. Peripheral pulses symmetric. RESPIRATORY/CHEST: Labored respirations on BiPAP. Significantly diminished air movement bilaterally worse at bases and worse on right. Scattered rhonchi. No audible wheezing. GASTROINTESTINAL: Abdomen soft, non-tender, nondistended. No hepato-splenomegaly , or palpable masses. No guarding. Bowel sounds hypoactive. GENITOURINARY: Without palpable bladder distension. MUSCULOSKELETAL: Extremities without clubbing, cyanosis, or edema. No mottling or clubbing. LYMPHATICS: No palpable cervical or supraclavicular adenopathy. NEUROLOGICAL: Intermittently agitated and stirs to exam but does not awaken and cannot answer questions. Unable to follow commands. Moves all extremities. PSYCHIATRIC: Unable to assess due to level of responsiveness. . Diagnostic Tests Laboratory Laboratory Tests Test 10/05/17 16:35 10/06/17 03:30 10/07/17 06:48 10/07/17 09:41 Blood Gas Puncture Site LT RADIAL Blood Gas Patient Temperature 98.6 Blood Gas HCO3 23 mmol/L (22-26) Blood Gas Base Excess -0.6 mmol/L (-2-2) Blood Gas Oxygen Saturation 84 % (90-100) Arterial Blood pH 7.48 (7.380-7.420) Arterial Blood Partial Pressure CO2 31 mmHg (38-42) Arterial Blood Partial Pressure O2 51 mmHG (61-120) Arterial Blood Oxygen Content 11.3 Vol % (12.0-20.0) Arterial Blood Carboxyhemoglobin 1.9 % (0-4) Arterial Blood Methemoglobin 0.2 % (0-2) Blood Gas Hemoglobin 9.6 G/DL (12.0-16.0) Oxygen Delivery Device NASAL CANNULA Blood Gas Liter Flow 5 L/M White Blood Count 37.7 TH/MM3 (4.0-11.0) Red Blood Count 2.21 MIL/MM3 (4.00-5.30) Hemoglobin 7.3 GM/DL (11.6-15.3) Hematocrit 22.9 % (35.0-46.0) Mean Corpuscular Volume 103.2 FL (80.0-100.0) Mean Corpuscular Hemoglobin 33.0 PG (27.0-34.0) Mean Corpuscular Hemoglobin Concent 32.0 % (32.0-36.0) Red Cell Distribution Width 17.6 % (11.6-17.2) Platelet Count 54 TH/MM3 (150-450) Mean Platelet Volume 9.3 FL (7.0-11.0) CBC Comment AUTO DIFF Differential Total Cells Counted 100 Neutrophils % (Manual) 15 % (16-70) Band Neutrophils % 2 % (0-6) Lymphocytes % 82 % (9-44) Monocytes % 1 % (0-8) Neutrophils # (Manual) 6.4 TH/MM3 (1.8-7.7) Differential Comment FINAL DIFF MANUAL Smudge Cells PRESENT Toxic Granulation 3+ (NORMAL) Platelet Estimate LOW (NORMAL) Platelet Morphology Comment NORMAL (NORMAL) Haptoglobin 163 MG/DL (30-200) Blood Urea Nitrogen 20 MG/DL (7-18) Creatinine 0.97 MG/DL (0.50-1.00) Random Glucose 157 MG/DL (74-106) Total Protein 6.3 GM/DL (6.4-8.2) Albumin 2.6 GM/DL (3.4-5.0) Calcium Level 8.0 MG/DL (8.5-10.1) Alkaline Phosphatase 70 U/L (45-117) Aspartate Amino Transf (AST/SGOT) 27 U/L (15-37) Alanine Aminotransferase (ALT/SGPT) 13 U/L (10-53) Total Bilirubin 0.4 MG/DL (0.2-1.0) Sodium Level 143 MEQ/L (136-145) Potassium Level 4.4 MEQ/L (3.5-5.1) Chloride Level 110 MEQ/L (98-107) Carbon Dioxide Level 24.0 MEQ/L (21.0-32.0) Anion Gap 9 MEQ/L (5-15) Estimat Glomerular Filtration Rate 54 ML/MIN (>89) Iron Level 38 MCG/DL (50-170) Total Iron Binding Capacity 246 MCG/DL (250-450) Percent Iron Saturation 15.4 % (20-50) Ferritin 410 NG/ML (8-252) Lactate Dehydrogenase 386 U/L (84-246) Random Vancomycin Level 8.8 COMMENT Adenovirus (PCR) NOT DETECTED (NOT DETECT) Bordetella holmesii (PCR) NOT DETECTED (NOT DETECT) Bordetella pertussis DNA (PCR) NOT DETECTED (NOT DETECT) B. parapertussis/bronchi (PCR) NOT DETECTED (NOT DETECT) Human Metapneumovirus (PCR) NOT DETECTED (NOT DETECT) Influenza Type A (RT-PCR) NOT DETECTED (NOT DETECT) Influenza Type A (H1) (PCR) NOT DETECTED (NOT DETECT) Influenza Type A (H3) (PCR) NOT DETECTED (NOT DETECT) Influenza Type B (RT-PCR) NOT DETECTED (NOT DETECT) Parainfluenza Type 1 (PCR) NOT DETECTED (NOT DETECT) Parainfluenza Type 2 (PCR) NOT DETECTED (NOT DETECT) Parainfluenza Type 3 (PCR) NOT DETECTED (NOT DETECT) Parainfluenza Type 4 (PCR) NOT DETECTED (NOT DETECT) Resp Syncytial Virus Type A (PCR) NOT DETECTED (NOT DETECT) Resp Syncytial Virus Type B (PCR) NOT DETECTED (NOT DETECT) Rhinovirus (PCR) NOT DETECTED (NOT DETECT) Test 10/07/17 15:52 10/08/17 10:30 White Blood Count 87.3 TH/MM3 (4.0-11.0) Red Blood Count 2.55 MIL/MM3 (4.00-5.30) Hemoglobin 8.4 GM/DL (11.6-15.3) Hematocrit 26.7 % (35.0-46.0) Mean Corpuscular Volume 104.5 FL (80.0-100.0) Mean Corpuscular Hemoglobin 32.9 PG (27.0-34.0) Mean Corpuscular Hemoglobin Concent 31.5 % (32.0-36.0) Red Cell Distribution Width 18.0 % (11.6-17.2) Platelet Count 65 TH/MM3 (150-450) Mean Platelet Volume 9.5 FL (7.0-11.0) CBC Comment AUTO DIFF Differential Total Cells Counted 100 Neutrophils % (Manual) 13 % (16-70) Lymphocytes % 85 % (9-44) Monocytes % 2 % (0-8) Neutrophils # (Manual) 11.3 TH/MM3 (1.8-7.7) Differential Comment FINAL DIFF MANUAL Smudge Cells PRESENT Toxic Granulation 2+ (NORMAL) Platelet Estimate LOW (NORMAL) Platelet Morphology Comment NORMAL (NORMAL) Blood Urea Nitrogen 34 MG/DL (7-18) Creatinine 1.07 MG/DL (0.50-1.00) Random Glucose 115 MG/DL (74-106) Calcium Level 8.2 MG/DL (8.5-10.1) Sodium Level 145 MEQ/L (136-145) Potassium Level 4.1 MEQ/L (3.5-5.1) Chloride Level 114 MEQ/L (98-107) Carbon Dioxide Level 21.7 MEQ/L (21.0-32.0) Anion Gap 9 MEQ/L (5-15) Estimat Glomerular Filtration Rate 48 ML/MIN (>89) Immunoglobulin G Total 207 MG/DL (650-1610) . Result Diagram: 10/07/17 1552 10/07/17 1552 Microbiology Microbiology Date/Time Source Procedure Growth Status 10/05/17 16:35 Urine Random Urine Legionella Antigen - Final PRESUMPTIVE NEGATIVE FOR LEGIONELLA P... Complete 10/05/17 16:35 Urine Random Urine Streptococcus pneumoniae Antigen (M - Final PRESUMPTIVE NEGATIVE FOR STREPTOCOCCU... Complete . Imaging Last Impressions Chest X-Ray 10/07/17 0000 Signed Impressions: CONCLUSION: Worsening bilateral pulmonary infiltrates. . Procedures BiPAP . Patient/Family Conference Present at Family Conference: Geovanny (son) and Randa (daughter) Patient was present in room but unable to participate. . Family Conference Time (mins): 35 Family Conference Location: Bedside, Hallway Issues Discussed: * Palliative care role, purpose, approach * Additional medical, psychosocial, and spiritual history * Patients general health, functional status, and cognitive changes in the months leading up to the current hospitalization * Family understanding of the current medical problems * Family understanding of prognosis * Patients goals of care as best understood from advance directives and/or conversations and/or values * Current medical treatment options and benefits/burdens of those options * Likely scenarios comparing ongoing aggressive care with a transition to comfort measures only * Questions answered to the best of my ability * Palliative care contact information provided . Assessment and Plan Disease Oriented Problem List: (1) CLL (chronic lymphocytic leukemia) (2) Bilateral pneumonia (3) PATRICK (acute kidney injury) (4) Anemia (5) Hypoxia Symptom Scale: Pertinent Non-Medical Issues Psychosocial: . Well supported by 3 children who live locally. Spiritual: Lutheran. Jewish and spirituality are an important part of her life. Spiritually supported by her own congregations. Legal: Advance directives are in place and scanned into EMR Ethical issues impacting care: Patient is incapacitated. It is unlikely she will regain capacity. . Important Contacts Geovanny Paige (son and health care surrogate) Randa Jarett (daughter and alternate surrogate) [phone] . Prognosis Patient has progressive leukemia and has had an increasingly difficult time tolerating medications. She now has bilateral pneumonia and is in respiratory distress. She does not want to be intubated. Prognosis is grim even with aggressive care. She is clearly a candidate for hospice care at such time that her goals become primarily comfort oriented. With comfort care only, life expectancy is in the order of hours to days. Code Status: No Code Plan == Code Status: NO CODE == Decision Making: At time of my visit, patient is in respiratory distress and minimally responsive. She is incapacitated to make her own health care decisions. It is unlikely that she will regain capacity to make her own health care decisions in the future. While incapacitated, her son -- Geovanny -- is the designated health care surrogate. == Goals of medical treatment: Patient is unable to provider her own goals of medical treatment at this time. After consultation with his two siblings, the health care surrogate has agreed that we should forego further life prolonging measures and transition to "comfort measures only" including removal of BiPAP. Initially, BiPAP removal was to be today, but surrogate indicated he wanted to wait until AM. == Symptoms * Dyspnea: Patient has been in respiratory distress with use of accessory muscles and agitation while on the BiPAP. I have increased comfort medications. Patient appears to be responding to increased morphine. * Agitation: Probably secondary to level of dyspnea and reaction to the BiPAP mask. She will probably be less agitated with increases in morphine and lorazepam and removal of BiPAP mask. * Pain: Mostly just arthritis type pain which have not required opiate analgesics at home. == Per discussion with family, we fill try and adjust comfort medications to get her comfortable on the BiPAP. They ultimately want to remove the BiPAP but appear that they prefer to wait until morning. == If patient survives overnight, will try and encourage hospice consult, Will see if family is willing to transfer to a hospice care center on BiPAP and then withdraw while in a care center bed. == Case discussed on phone and in-person with Dr. Servin. == Palliative care will continue to follow to assist with symptom management and to further clarify goals of medical treatment as the clinical course evolves. . Time Spent Total Floor Time (mins): 95 (total time included chart review, patient exam; discussions with Dr. Servin; collaboration with primary nurse; two separate bedside consultations with health care surrogate; writing comfort orders.) Face to Face Time (mins): 20 >50% Counseling/Coord of Care: Yes Thank you for the opportunity to participate in the care of Ms. Paige. . Attestation To help prompt me to consider important information that might be impacting today's encounter and assessment, information from prior notes written by myself or my colleagues may have been "brought forward" into today's note. My signature on this note, however, is an attestation that I personally performed the exam, history, and/or decision-making noted today, and, unless otherwise indicated, the interactions with patient, family, and staff as well as the review of records all occurred today. I also attest that the listed assessment and stated plan reflect my best clinical judgment today based on the combination of historical information, prior notes, and today's exam/ interactions. When time spent is documented, it refers only to time spent today by the signer, or if indicated, combined time spent today by collaborating physician/nurse practitioner. . Adrian Walker MD October 08, 2017 14:01
--- NOTE | 2017-10-08 14:47 | HHI.PR ---
Subjective Remarks She is anxious and tachypneic. On BIPAP 04/17, FIO2 100%. C/O pain. in arm. Objective Vital Signs Date Time Temp Pulse Resp B/P (MAP) Pulse Ox O2 Delivery O2 Flow Rate FiO2 10/08/17 14:03 94 100 10/08/17 13:33 32 10/08/17 13:30 100 32 137/64 10/08/17 12:00 97.8 106 28 151/72 (98) 90 10/08/17 12:00 106 10/08/17 11:08 92 95 10/08/17 11:07 26 10/08/17 11:00 102 10/08/17 10:00 94 10/08/17 09:00 90 10/08/17 08:00 93 10/08/17 08:00 Bi-Pap 10/08/17 08:00 97.8 98 26 156/81 (106) 90 10/08/17 07:29 94 85 10/08/17 07:00 92 10/08/17 06:00 96 10/08/17 05:45 98 90 10/08/17 05:00 96 10/08/17 04:00 82 10/08/17 03:53 83 26 102/49 (66) 94 10/08/17 03:30 94 100 10/08/17 03:00 92 10/08/17 02:00 96 10/08/17 02:00 92 100 10/08/17 01:45 97 30 143/69 (93) 94 10/08/17 01:00 86 10/08/17 00:00 106 10/07/17 23:15 105 28 131/69 (89) 91 10/07/17 23:08 89 100 10/07/17 23:00 92 10/07/17 22:00 98 10/07/17 21:00 92 10/07/17 20:17 94 Bi-Pap 100 10/07/17 20:10 97.8 98 28 132/67 (88) 94 10/07/17 20:00 98 10/07/17 19:02 95 100 10/07/17 19:00 100 10/07/17 18:01 102 10/07/17 17:00 96 10/07/17 16:01 94 10/07/17 15:15 97.0 97 26 165/77 (106) 97 5/27/18 15:00 94 I/O 10/07/17 10/07/17 10/07/17 10/08/17 10/08/17 10/08/17 07:00 15:00 23:00 07:00 15:00 23:00 Intake Total 340 ml 100 ml 240 ml 200 ml Output Total 700 ml 200 ml 100 ml Balance -360 ml 100 ml 40 ml 100 ml Intake Oral 240 ml 240 ml 100 ml IV Total 100 ml 100 ml 100 ml Output Urine Total 700 ml 200 ml 100 ml # Voids 2 1 # Bowel Movements 0 0 Result Diagram: 10/07/17 1552 10/07/17 1552 Objective Remarks GENERAL: This is a thinly built, elderly white female who is pale and tachypneic. HEENT: Head is normocephalic. Pupils reactive. Sclerae were injected. Tongue was dry. Throat is dry NECK: Supple. No lymphadenopathy. No bruits or thyroid enlargement. LUNGS: Decreased breath sounds to the periphery with coarse wheezes bilaterally with basilar crackles. HEART: The heart sounds are regular, S1, S2 with no definite murmur. ABDOMEN: Soft, nontender. There is no organomegaly. Bowel sounds are active. EXTREMITIES: No edema. No skin lesions. NEUROLOGIC: She is moving all her extremities with no gross motor deficits. SKIN: Dry and cool. Assessment and Plan Assessment and Plan IMPRESSION: 1. Bilateral pneumonia with hypoxemia. 2. History of chronic lymphocytic leukemia on therapy. 3. Anemia. 4. Possible sepsis. 5. Probable aspiration. Plan : 1. Continue on BIPAP15/5 CM, and wean FIo2 2. Antibiotics per ID. 3. BMP CBC 4. Nebs qid , Duoneb 5. PO Liquids . 6. Cont Solumedrol 40 mg IV Q6H 7. Ativan .5 mg Q6H prn Apollo Hughes MD October 08, 2017 14:47
[2017-10-08] MEDS ORDERED: LORazepam 2 MG/ML VIAL IV PUSH PRN ×2 (15:00→18:00)
[2017-10-08] MEDS ORDERED: MORPHINE SULFATE 2 MG/ML SYRINGE IV PUSH PRN (16:00)
[2017-10-08] MEDS: MORPHINE SULFATE 2 MG/ML SYRINGE IV PUSH PRN ×2 (16:17→17:30)
[2017-10-08] MEDS ORDERED: MORPHINE SULFATE 4 MG/ML INJ ONE (17:35)
[2017-10-08] MEDS: MORPHINE SULFATE 4 MG/ML INJ IV PUSH SCH ×2 (18:21→22:09)
[2017-10-08] MEDS: MONTELUKAST SODIUM 10 MG TAB PO SCH (21:00)
[2017-10-08] MEDS: HALOPERIDOL LACTATE 5 MG/ML AMP IV PUSH SCH (22:00)
[2017-10-08] MEDS: LORazepam 2 MG/ML VIAL IV PUSH PRN (22:10)
[2017-10-09] VITALS (15 sets, daily range): BP systolic 71–91; BP diastolic 33–87; PULSE 52–95; RESP 20–28; TEMP 96.8–98.2; O2SAT 100
[2017-10-09] MEDS: RESP: ALBUTEROL 2.5 MG/IPRATROPIUM 0.5 MG NEB (SCH) NEB ×3 (04:00→11:32)
[2017-10-09] MEDS: LEVOTHYROXINE SODIUM 100 MCG TAB PO SCH (06:00)
[2017-10-09] MEDS: HALOPERIDOL LACTATE 5 MG/ML AMP IV PUSH SCH (06:00)
[2017-10-09] MEDS: MORPHINE SULFATE 4 MG/ML INJ IV PUSH SCH ×2 (06:01→12:11)
[2017-10-09] MEDS: methylPREDNISolone SOD SUCC 40 MG/1 ML VIAL IV PUSH SCH ×3 (06:01→12:10)
[2017-10-09] MEDS: IRON SUCROSE INJ 100 MG in SODIUM CHLORIDE 0.9% INJ 100 ML IV SCH (09:00)
[2017-10-09] MEDS: amLODIPine BESYLATE 5 MG TAB PO SCH (09:19)
[2017-10-09] MEDS: FLUTICASONE PROPIONATE 50 MCG/ACT 16 GM NASAL SPRAY NASAL SCH (09:19)
[2017-10-09] MEDS: DOCUSATE SODIUM 50 MG/SENNA 8.6 MG TAB PO SCH (09:19)
[2017-10-09] MEDS: ALLOPURINOL 100 MG TAB PO SCH (09:19)
[2017-10-09] MEDS: SODIUM CHLORIDE 0.9% FLUSH 10 ML FLUSH IV FLUSH SCH (09:20)
[2017-10-09] MEDS: CEFEPIME INJ 2,000 MG in SODIUM CHLORIDE 0.9% INJ 100 ML IV SCH (09:29)
[2017-10-09] MEDS ORDERED: PHARMACY ORDERED LAB ONE (09:45)
[2017-10-09] MEDS: VANCOMYCIN INJ 750 MG in SODIUM CHLOR 0.9% 250 ML INJ 250 ML IV SCH (09:53)
--- NOTE | 2017-10-09 10:46 | HHI.PR ---
Subjective Remarks Family has met with hospice today wishes for the patient to go to the hospice care center at [place] today We will do paperwork And make sure that everything is done much so she can be transferred to [place] inpatient hospice today Objective Vitals Vital Signs Date Time Temp Pulse Resp B/P (MAP) Pulse Ox O2 Delivery O2 Flow Rate FiO2 10/09/17 10:00 78 10/09/17 09:00 88 10/09/17 08:30 76 10/09/17 08:07 100 100 10/09/17 08:02 96.8 91 20 89/46 (60) 100 10/09/17 07:24 100 Bi-Pap 100 10/09/17 07:00 89 10/09/17 07:00 89 10/09/17 06:00 92 10/09/17 05:06 100 100 10/09/17 04:30 99 Bi-Pap 100 10/09/17 04:00 95 10/09/17 04:00 98.2 95 20 91/46 (61) 100 10/09/17 00:00 94 10/08/17 23:29 99 100 10/08/17 22:23 30 10/08/17 22:05 99 36 87/46 (60) 96 10/08/17 20:11 96 10/08/17 20:11 98.0 96 28 93/42 (59) 94 10/08/17 19:00 94 Bi-Pap 100 10/08/17 18:12 91 10/08/17 18:00 98 10/08/17 17:00 96 10/08/17 16:00 97.6 100 36 146/70 (95) 91 10/08/17 16:00 94 10/08/17 15:00 100 10/08/17 14:03 94 100 10/08/17 14:00 97.8 101 34 131/60 (83) 93 10/08/17 14:00 100 10/08/17 13:45 97.8 101 36 146/67 (93) 92 10/08/17 13:33 32 10/08/17 13:30 100 32 137/64 10/08/17 13:30 97.6 100 34 149/70 (96) 91 10/08/17 13:15 97.4 100 32 137/64 (88) 90 10/08/17 13:00 100 10/08/17 12:00 97.8 106 28 151/72 (98) 90 10/08/17 12:00 106 10/08/17 11:08 92 95 10/08/17 11:07 26 10/08/17 11:00 102 I/O 10/08/17 10/08/17 10/08/17 10/09/17 10/09/17 10/09/17 07:00 15:00 23:00 07:00 15:00 23:00 Intake Total 200 ml 1311 ml 0 ml Output Total 100 ml 600 ml 100 ml Balance 100 ml 711 ml -100 ml Intake Oral 100 ml 60 ml 0 ml IV Total 100 ml 1251 ml Output Urine Total 100 ml 600 ml 100 ml # Voids 1 # Bowel Movements 0 0 Result Diagram: 10/07/17 1552 10/07/17 1552 Other Results Laboratory Tests Test 10/07/17 06:48 10/07/17 09:41 10/07/17 15:52 10/08/17 10:30 Random Vancomycin Level 8.8 COMMENT Adenovirus (PCR) NOT DETECTED Bordetella holmesii (PCR) NOT DETECTED Bordetella pertussis DNA (PCR) NOT DETECTED B. parapertussis/bronchi (PCR) NOT DETECTED Human Metapneumovirus (PCR) NOT DETECTED Influenza Type A (RT-PCR) NOT DETECTED Influenza Type A (H1) (PCR) NOT DETECTED Influenza Type A (H3) (PCR) NOT DETECTED Influenza Type B (RT-PCR) NOT DETECTED Parainfluenza Type 1 (PCR) NOT DETECTED Parainfluenza Type 2 (PCR) NOT DETECTED Parainfluenza Type 3 (PCR) NOT DETECTED Parainfluenza Type 4 (PCR) NOT DETECTED Resp Syncytial Virus Type A (PCR) NOT DETECTED Resp Syncytial Virus Type B (PCR) NOT DETECTED Rhinovirus (PCR) NOT DETECTED White Blood Count 87.3 TH/MM3 Red Blood Count 2.55 MIL/MM3 Hemoglobin 8.4 GM/DL Hematocrit 26.7 % Mean Corpuscular Volume 104.5 FL Mean Corpuscular Hemoglobin 32.9 PG Mean Corpuscular Hemoglobin Concent 31.5 % Red Cell Distribution Width 18.0 % Platelet Count 65 TH/MM3 Mean Platelet Volume 9.5 FL CBC Comment AUTO DIFF Differential Total Cells Counted 100 Neutrophils % (Manual) 13 % Lymphocytes % 85 % Monocytes % 2 % Neutrophils # (Manual) 11.3 TH/MM3 Differential Comment FINAL DIFF MANUAL Smudge Cells PRESENT Toxic Granulation 2+ Platelet Estimate LOW Platelet Morphology Comment NORMAL Blood Urea Nitrogen 34 MG/DL Creatinine 1.07 MG/DL Random Glucose 115 MG/DL Calcium Level 8.2 MG/DL Sodium Level 145 MEQ/L Potassium Level 4.1 MEQ/L Chloride Level 114 MEQ/L Carbon Dioxide Level 21.7 MEQ/L Anion Gap 9 MEQ/L Estimat Glomerular Filtration Rate 48 ML/MIN Immunoglobulin G Total 207 MG/DL Imaging Last Impressions Chest X-Ray 10/07/17 0000 Signed Impressions: CONCLUSION: Worsening bilateral pulmonary infiltrates. Objective Remarks GENERAL: Looks uncomfortable on BiPAP to go to hospice later today--patient remains quite lethargic on BiPAP SKIN: Warm and dry. HEAD: Atraumatic. Normocephalic. EYES: Pupils equal and round. No scleral icterus. No injection or drainage. Extraocular muscles intact ENT: No nasal bleeding or discharge. Mucous membranes pink and moist. NECK: Trachea midline. No JVD. CARDIOVASCULAR: Regular rate and rhythm. S1-S2 no S3 or S4 RESPIRATORY: No accessory muscle use. Breath sounds equal bilaterally. Scattered rhonchi and coarse breath sounds bilaterally GASTROINTESTINAL: Abdomen soft, non-tender, nondistended. Hepatic and splenic margins not palpable. MUSCULOSKELETAL: Extremities without clubbing, cyanosis, or edema. No obvious deformities. NEUROLOGICAL: NOT Awake and alert. No obvious cranial nerve deficits. Motor grossly within normal limits. 4 out of 5 muscle strength in the arms and legs. Normal speech. PSYCHIATRIC: INAppropriate mood and affect; insight and judgment ABnormal. Remains quite lethargic on BiPAP Procedures NONE Medications and IVs Current Medications Sodium Chloride (NS Flush) 2 ml UNSCH PRN IVF FLUSH AFTER USING IV ACCESS Last administered on 10/05/17at 13:09; Start 10/05/17 at 11:15; Stop 10/05/17 at 14:09 ; Status DC Cefepime HCl 2000 mg/Sodium Chloride 100 ml @ 200 mls/hr ONCE ONCE IV Last administered on 10/05/17at 13:09; Start 10/05/17 at 13:00; Stop 10/05/17 at 13:29 ; Status DC Azithromycin 500 mg/Sodium Chloride 250 ml @ 250 mls/hr ONCE ONCE IV Last administered on 10/05/17at 13:53; Start 10/05/17 at 13:00; Stop 10/05/17 at 13:59 ; Status DC Sodium Chloride 1,000 ml @ 100 mls/hr Q10H IV Last administered on 10/06/17at 10:32; Start 10/05/17 at 13:00; Stop 10/06/17 at 16:41; Status DC Albuterol/ Ipratropium (Duoneb Neb) 1 ampule ONCE ONCE NEB Last administered on 10/05/17at 13:18; Start 10/05/17 at 13:00; Stop 10/05/17 at 13:01; Status DC Sodium Chloride 1,000 ml @ 100 mls/hr Q10H IV ; Start 10/05/17 at 13:27; Stop 10/06/17 at 16:41; Status DC Sodium Chloride (NS Flush) 2 ml UNSCH PRN IV FLUSH FLUSH AFTER USING IV ACCESS ; Start 10/05/17 at 13:30 Sodium Chloride (NS Flush) 2 ml BID IV FLUSH Last administered on 10/09/17at 09: 20; Start 10/05/17 at 21:00 Acetaminophen (Tylenol) 650 mg Q4H PRN PO TEMP > 100.4; Start 10/05/17 at 13:30 Metoclopramide HCl (Reglan Inj) 5 mg Q6H PRN IV PUSH NAUSEA OR VOMITING; Start 10/05/17 at 13:30 Heparin Sodium (Porcine) (Heparin Inj) 5,000 units Q12HR SQ Last administered on 10/06/17at 08:31; Start 10/05/17 at 13:40; Stop 10/06/17 at 22:39; Status DC Naloxone HCl (Narcan Inj) 0.4 mg UNSCH PRN IV PUSH SEE LABEL COMMENTS; Start at 13:30; Stop 10/08/17 at 17:50; Status DC Senna/Docusate Sodium (Kailee-Colace) 1 tab BID PO Last administered on at 09:25; Start 10/05/17 at 21:00 Magnesium Hydroxide (Milk Of Magnesia Liq) 30 ml Q12H PRN PO Mild constipation ; Start 10/05/17 at 13:30 Sennosides (Senokot) 17.2 mg Q12H PRN PO Moderate constipation; Start 10/05/17 at 13:30 Bisacodyl (Dulcolax Supp) 10 mg DAILY PRN RECTAL SEVERE CONSITIPATION; Start at 13:30 Lactulose (Lactulose Liq) 30 ml DAILY PRN PO SEVERE CONSITIPATION; Start at 13:30 Azithromycin 500 mg/Sodium Chloride 250 ml @ 250 mls/hr Q24H IV Last administered on 10/08/17at 13:43; Start 10/06/17 at 14:00 Cefepime HCl 2000 mg/Sodium Chloride 100 ml @ 200 mls/hr Q12H IV Last administered on 10/06/17at 00:40; Start 10/06/17 at 01:00; Stop 10/06/17 at 09:24 ; Status DC Albuterol/ Ipratropium (Duoneb Neb) 1 ampule Q4HR WHILE AWAKE NEB NEB Last administered on 10/06/17at 12:54; Start 10/05/17 at 16:00; Stop 10/06/17 at 15:25 ; Status DC Albuterol/ Ipratropium (Duoneb Neb) 1 ampule Q2HR NEB PRN NEB SOB/WHEEZING Last administered on 10/06/17at 14:39; Start 10/05/17 at 13:45 Allopurinol (Zyloprim) 100 mg DAILY PO Last administered on 10/08/17at 08:05; Start 10/06/17 at 09:00 Amlodipine Besylate (Norvasc) 2.5 mg DAILY PO Last administered on 10/08/17at 08 :05; Start 10/06/17 at 09:00 Ferrous Sulfate (Ferrous Sulfate) 325 mg DAILY PO Last administered on at 09:25; Start 10/06/17 at 09:00; Stop 10/08/17 at 08:39; Status DC Levothyroxine Sodium (Synthroid) 100 mcg DAILY@0600 PO Last administered on at 05:18; Start 10/06/17 at 06:00 Montelukast Sodium (Singulair) 10 mg HS PO Last administered on 10/05/17at 21:44 ; Start 10/05/17 at 21:00 Patient Own Medication PT OWN MED: RESTASIS OPTH (CYCLOSPORI... BID EACH EYE ; Start 10/05/17 at 21:00; Status Future Hold Non-Formulary Medication 1 cap DAILY PO ; Start 10/06/17 at 09:00; Stop at 09:00; Status DC Fluticasone Propionate (Flonase Francisco Spr) 1 spray DAILY NASAL Last administered on 10/07/17at 09:27; Start 10/06/17 at 09:00 Miscellaneous (Pill Splitter) 1 ea UNSCH PRN OTHER SEE LABEL COMMENTS; Start at 09:00 Morphine Sulfate (Morphine Inj) 2 mg ONCE ONCE IV PUSH Last administered on at 17:33; Start 10/05/17 at 17:30; Stop 10/05/17 at 17:31; Status DC Alprazolam (Xanax) 0.5 mg Q6H PRN PO anxiety/ agitation Last administered on at 05:18; Start 10/05/17 at 17:30 Morphine Sulfate (Morphine Inj) 2 mg Q4H PRN IV PUSH pain 2-10 Last administered on 10/08/17at 15:02; Start 10/05/17 at 17:30; Stop 10/08/17 at 16:05 ; Status DC Methylprednisolone Sodium Succinate (SoluMEDROL INJ) 40 mg Q8HR IV PUSH Last administered on 10/06/17at 13:22; Start 10/05/17 at 22:00; Stop 10/06/17 at 15:23 ; Status DC Methylprednisolone Sodium Succinate (SoluMEDROL INJ) 40 mg ONCE ONCE IV PUSH Last administered on 10/05/17at 19:28; Start 10/05/17 at 17:30; Stop 10/05/17 at 17:40; Status DC Cefepime HCl 2000 mg/Sodium Chloride 100 ml @ 200 mls/hr Q8H IV Last administered on 10/08/17at 08:04; Start 10/06/17 at 17:00; Stop 10/08/17 at 11:07 ; Status DC Vancomycin HCl 1000 mg/Sodium Chloride 250 ml @ 250 mls/hr ONCE ONCE IV Last administered on 10/06/17at 10:31; Start 10/06/17 at 09:45; Stop 10/06/17 at 10:44 ; Status DC Pharmacy Profile Note 0 ml @ 0 mls/hr UNSCH OTHER ; Start 10/06/17 at 09:30; Stop 10/06/17 at 16:54; Status DC Oseltamivir Phosphate (Tamiflu) 75 mg BID PO Last administered on 10/07/17at 09: 25; Start 10/06/17 at 10:00; Stop 10/07/17 at 15:14; Status DC Epoetin Bob (Epogen Inj) 20,000 units ONCE ONCE SQ Last administered on at 11:17; Start 10/06/17 at 10:00; Stop 10/06/17 at 10:01; Status DC Morphine Sulfate (Morphine Inj) 4 mg ONCE ONCE IV PUSH Last administered on at 14:33; Start 10/06/17 at 14:30; Stop 10/06/17 at 14:31; Status DC Furosemide (Lasix Inj) 40 mg ONCE ONCE IV PUSH Last administered on 10/06/17at 14:32; Start 10/06/17 at 14:30; Stop 10/06/17 at 14:31; Status DC Albuterol/ Ipratropium (Duoneb Neb) 1 ampule Q4HR NEB NEB Last administered on 10/08/17at 10:39; Start 10/06/17 at 16:00 Methylprednisolone Sodium Succinate (SoluMEDROL INJ) 40 mg Q6HR IV PUSH Last administered on 10/09/17at 06:01; Start 10/06/17 at 18:00 Vancomycin HCl 750 mg/Sodium Chloride 250 ml @ 250 mls/hr Q24H IV Last administered on 10/08/17at 10:00; Start 10/07/17 at 10:00 Pharmacy Profile Note 0 ml @ 0 mls/hr UNSCH OTHER ; Start 10/06/17 at 16:45 Furosemide (Lasix Inj) 20 mg ONCE ONCE IV PUSH Last administered on 10/06/17at 17:20; Start 10/06/17 at 17:00; Stop 10/06/17 at 17:01; Status DC Miscellaneous Information ([facility] [place] [facility] Ordered Lab Info) SPECIFIC LAB TO BE DRAWN:VANCOMYCIN TROUGH DATE TO... ONCE ONCE .XX ; Start 10/09/17 at 09:45; Stop 10/09/17 at 09:46; Status DC Iron Sucrose 100 mg/Sodium Chloride 105 ml @ 105 mls/hr DAILY IV Last administered on 10/08/17at 08:03; Start 10/07/17 at 11:15; Stop 10/09/17 at 09:59 ; Status DC Lorazepam (Ativan Inj) 0.5 mg ONCE ONCE IV PUSH Last administered on at 01:47; Start 10/08/17 at 01:45; Stop 10/08/17 at 01:46; Status DC Epoetin Bob (Epogen Inj) 40,000 units MoWeFr SQ Last administered on at 12:12; Start 10/08/17 at 09:00 Cefepime HCl 2000 mg/Sodium Chloride 100 ml @ 200 mls/hr Q12HR IV ; Start 10/08 at 21:00 Acetaminophen (Tylenol) 650 mg ONCE ONCE PO Last administered on 10/08/17at 12: 11; Start 10/08/17 at 12:00; Stop 10/08/17 at 12:01; Status DC Dextrose 500 ml @ 30 mls/hr [id number] ONCE OTHER Last administered on 10/08/17at 12:36; Start 10/08/17 at 12:36; Stop 10/09/17 at 05:15; Status DC Diphenhydramine HCl (Benadryl) 25 mg ONCE ONCE PO Last administered on at 12:12; Start 10/08/17 at 12:00; Stop 10/08/17 at 12:01; Status DC Immune Globulin 20 gm/Syringe / Bag 200 ml @ 16.2 mls/hr Q24H IV Last administered on 10/08/17at 13:30; Start 10/08/17 at 12:45; Stop 10/09/17 at 01:06 ; Status DC Diphenhydramine HCl (Benadryl Inj) 50 mg UNSCH PRN IV PUSH ALLERGIC REACTION; Start 10/08/17 at 12:45; Stop 10/10/17 at 12:44 Epinephrine HCl (Adrenalin (1:1000) Inj) 0.3 mg Q10M PRN OTHER ANAPHYLACTIC REACTION; Start 10/08/17 at 12:45; Stop 10/10/17 at 12:44 Lorazepam (Ativan Inj) 0.5 mg Q6H PRN IV PUSH agitation Last administered on at 15:01; Start 10/08/17 at 15:00; Stop 10/08/17 at 17:50; Status DC Morphine Sulfate (Morphine Inj) 3 mg Q1H PRN IV PUSH pain/sob 1-5 Last administered on 10/08/17at 17:30; Start 10/08/17 at 16:00 Morphine Sulfate (Morphine Inj) 5 mg Q1H PRN IV PUSH pain/sob 6-10; Start at 16:00 Morphine Sulfate (Morphine Inj) 4 mg STK-MED ONCE .ROUTE ; Start 10/08/17 at 17: 35; Stop 10/08/17 at 17:36; Status DC Lorazepam (Ativan Inj) 1.5 mg Q2H PRN IV PUSH anxiety/sob/tachypnea #1-5; Start 10/08/17 at 18:00 Morphine Sulfate (Morphine Inj) 4 mg Q6HR IV PUSH Last administered on at 06:01; Start 10/08/17 at 18:00 Lorazepam (Ativan Inj) 2 mg Q2H PRN IV PUSH anxiety/sob/tachypnea #6-10 Last administered on 10/08/17at 22:10; Start 10/08/17 at 17:45 Haloperidol Lactate (Haldol Inj) 0.5 mg Q8HR IV PUSH ; Start 10/08/17 at 22:00 A/P Problem List: (1) CLL (chronic lymphocytic leukemia) ICD Code: C91.90 - Lymphoid leukemia, unspecified not having achieved remission (2) PATRICK (acute kidney injury) ICD Code: N17.9 - Acute kidney failure, unspecified (3) Hypoxia ICD Code: R09.02 - Hypoxemia Status: Acute (4) Bilateral pneumonia ICD Code: J18.9 - Pneumonia, unspecified organism Status: Acute Assessment and Plan Assessment and Plan 87-year-old female with multiple medical problems, presented to the ED for shortness of breath for the past week. Pt presents with shortness of breath and bilateral infiltrates on CXR, consistent with pneumonia. Severe Sepsis Bilateral Pneumonia, likely bacterial Acute hypoxic respiratory failure -Infectious disease on board, continue solumedrol, continue duo nebs every 4 and every 2 hours as needed. Ativan for anxiety. On azithromycin, cefepime, Tamiflu, and vancomycin vancomycin. Respiratory panel negative, will stop Tamiflu, discussed with infectious disease. Follow-up other cultures. CXR reviewed with bilateral infiltrates, cont oxygen support, pulmonary following, on NRB, pt is DNR/DNI, will be on BiPAP per pulmonary. Repeat chest x-ray and CBC in the morning. Continue steroids per pulmonary. Family has decided that they wish for the patient to go to inpatient hospital at the [facility] Mild PATRICK - Resolved, continue gentle IVF- poor po ff BMP. Chronic lymphocytic leukemia WBC 41, Hb 8.3, PLT 60 Previous WBC and Hb were normal as of 08/22/17 Previous PLT 41, hematology following, Procrit per hematology for anemia 'since patient is a [employer]. Recheck CBC in the morning. Chronic medical problems appears stable at this time ( HTN, hypothyroidism, gout) . Monitor. Continue home meds as indicated - levothyroxine, amolodipine, allopurinol, fish oil vitamin D, restasis, montelukast, flonase DVT prophylaxis with SCDs and subcutaneous heparin DNR/DNI Family has accepted hospice and wishes for patient to go to the inpatient care center in [place] today she will be transported on BiPAP and made comfortable Comfort measures only Discharge Planning DC to hospice at [place] inpatient Problem Qualifiers (1) Bilateral pneumonia: Qualified Codes: J18.9 - Pneumonia, unspecified organism Bernabe Rivera DO October 09, 2017 10:46
[2017-10-09] MEDS ORDERED: ALPR.5 PO (10:49)
[2017-10-09] MEDS ORDERED: Albuterol-Ipratropium Neb NEB (10:49)
--- NOTE | 2017-10-09 10:51 | HHI.DS ---
Discharge Summary Admission Date October 05, 2017 at 13:34 Discharge Date: October 09, 2017 Admitting Diagnosis Bilateral pneumonia, hypoxia, SIRS, leukocytosis (1) CLL (chronic lymphocytic leukemia) ICD Code: C91.90 - Lymphoid leukemia, unspecified not having achieved remission Diagnosis: Principal (2) PATRICK (acute kidney injury) ICD Code: N17.9 - Acute kidney failure, unspecified Diagnosis: Secondary (3) Hypoxia ICD Code: R09.02 - Hypoxemia Diagnosis: Principal Status: Acute (4) Bilateral pneumonia ICD Code: J18.9 - Pneumonia, unspecified organism Diagnosis: Principal Status: Acute Procedures NONE Brief History - From Admission 87-year-old female with multiple medical problems, presented to the ED for shortness of breath for the past week. Shortness of breath has been progressive and she has had a mild, dry cough without chest pain or chest tightness. She has a mild runny nose but takes allergy medications regularly. Symptoms are slightly worse with exertion. She also has had a fever and chills with episodes of sweating. She denies orthopnea or paroxysmal nocturnal dyspnea. She has no history of tobacco use, however she lives with a smoker. She denies any known history of COPD, CHF, or PE/ DVT. She is currently being treated for CLL with oral chemotherapy by her personal injury attorney, Dr. Del Rosario. She denies any sore throat, nasal congestion, lower extremity edema, dizziness, syncope, palpitations, abdominal pain, nausea, vomiting. Has a mild cough but the main complaint is sob and fever ( at home). She started a new chemotherapy pill (Zydelig) on 09/25/17 and it was discontinued 10/03/17 due to development of fever and chills. Dyspnea and chills have worsened since stopping the medication. CBC/BMP: 10/07/17 1552 10/07/17 1552 Significant Findings Laboratory Tests Test 10/07/17 06:48 10/07/17 09:41 10/07/17 15:52 10/08/17 10:30 White Blood Count 87.3 TH/MM3 (4.0-11.0) Red Blood Count 2.55 MIL/MM3 (4.00-5.30) Hemoglobin 8.4 GM/DL (11.6-15.3) Hematocrit 26.7 % (35.0-46.0) Mean Corpuscular Volume 104.5 FL (80.0-100.0) Mean Corpuscular Hemoglobin Concent 31.5 % (32.0-36.0) Red Cell Distribution Width 18.0 % (11.6-17.2) Platelet Count 65 TH/MM3 (150-450) Neutrophils % (Manual) 13 % (16-70) Lymphocytes % 85 % (9-44) Neutrophils # (Manual) 11.3 TH/MM3 (1.8-7.7) Toxic Granulation 2+ (NORMAL) Platelet Estimate LOW (NORMAL) Blood Urea Nitrogen 34 MG/DL (7-18) Creatinine 1.07 MG/DL (0.50-1.00) Random Glucose 115 MG/DL (74-106) Calcium Level 8.2 MG/DL (8.5-10.1) Chloride Level 114 MEQ/L (98-107) Estimat Glomerular Filtration Rate 48 ML/MIN (>89) Immunoglobulin G Total 207 MG/DL (650-1610) Imaging Last Impressions Chest X-Ray 10/07/17 0000 Signed Impressions: CONCLUSION: Worsening bilateral pulmonary infiltrates. PE at Discharge GENERAL: Looks uncomfortable on BiPAP to go to hospice later today--patient remains quite lethargic on BiPAP SKIN: Warm and dry. HEAD: Atraumatic. Normocephalic. EYES: Pupils equal and round. No scleral icterus. No injection or drainage. Extraocular muscles intact ENT: No nasal bleeding or discharge. Mucous membranes pink and moist. NECK: Trachea midline. No JVD. CARDIOVASCULAR: Regular rate and rhythm. S1-S2 no S3 or S4 RESPIRATORY: No accessory muscle use. Breath sounds equal bilaterally. Scattered rhonchi and coarse breath sounds bilaterally GASTROINTESTINAL: Abdomen soft, non-tender, nondistended. Hepatic and splenic margins not palpable. MUSCULOSKELETAL: Extremities without clubbing, cyanosis, or edema. No obvious deformities. NEUROLOGICAL: NOT Awake and alert. No obvious cranial nerve deficits. Motor grossly within normal limits. 4 out of 5 muscle strength in the arms and legs. Normal speech. PSYCHIATRIC: INAppropriate mood and affect; insight and judgment ABnormal. Remains quite lethargic on BiPAP Hospital Course 87-year-old female with multiple medical problems, presented to the ED for shortness of breath for the past week. Shortness of breath has been progressive and she has had a mild, dry cough without chest pain or chest tightness. She has a mild runny nose but takes allergy medications regularly. Symptoms are slightly worse with exertion. She also has had a fever and chills with episodes of sweating. She denies orthopnea or paroxysmal nocturnal dyspnea. She has no history of tobacco use, however she lives with a smoker. She denies any known history of COPD, CHF, or PE/ DVT. She is currently being treated for CLL with oral chemotherapy by her personal injury attorney, Dr. Del Rosario. She denies any sore throat, nasal congestion, lower extremity edema, dizziness, syncope, palpitations, abdominal pain, nausea, vomiting. Has a mild cough but the main complaint is sob and fever ( at home). She started a new chemotherapy pill (Zydelig) on 09/25/17 and it was discontinued 10/03/17 due to development of fever and chills. Dyspnea and chills have worsened since stopping the medication. Family has met with hospice and accepted hospice We will transfer to the inpatient care center in [place] Discharge to [place] [facility] for hospice today Comfort measures only Continue on BiPAP Pt Condition on Discharge: Deteriorating Discharge Disposition: Hospice/Med Facility Discharge Time: > 30 minutes Discharge Instructions DIET: Follow Instructions for: Nothing By Mouth Activities you can perform: Regular-No Restrictions Other Activity Instructions: Continue BiPAP New Medications: Alprazolam (Xanax) 0.5 Mg Tab 0.5 MG PO Q6H PRN for anxiety/ agitation , #60 TAB [Albuterol-Ipratropium Neb] () 1 AMPULE NEBU 1 AMPULE NEB Q4HR NEB for Breathing Treatment, #180 Continued Medications: Acetaminophen (Mapap) 325 Mg Tab 650 MG PO Q6HR PRN for PAIN, TAB 0 Refills Albuterol 8.5 GM Inh (Proair Hfa 8.5 GM Inh) 90 Mcg/Act Aer 2 PUFF INH Q4HR PRN for SHORTNESS OF BREATH, #1 INHALER 0 Refills 108 mcg/actuation Allopurinol (Allopurinol) 100 Mg Tab 100 MG PO DAILY for Gout, #30 TAB 0 Refills Amlodipine (Amlodipine) 2.5 Mg Tab 2.5 MG PO DAILY for Blood Pressure Management, #30 TAB 0 Refills Cyclosporine Opth (Restasis Opth) 0.05% Emul 1 DROP EACH EYE BID for Dry Eye, #1 BOX 0 Refills Fluticasone Nasal Odell (Flonase Nasal Odell) 50 Mcg/Act Odell 50 MCG EACH NARE DAILY for Allergies, #1 BOTTLE 0 Refills Levothyroxine (Synthroid) 100 Mcg Tab 100 MCG PO DAILY for Thyroid, #30 TAB 0 Refills Lutein (Lutein) 20 Mg Cap 20 MG PO DAILY for Nutritional Supplement, CAP 0 Refills Montelukast (Montelukast) 10 Mg Tab 10 MG PO HS, #30 TAB 0 Refills Discontinued Medications: Alendronate (Alendronate) 70 Mg Tab 70 MG PO Q7D for Osteporosis Treatment, #4 TAB 0 Refills Ferrous Sulfate (Ferrous Sulfate) 325 Mg (65 Mg Iron) Tablet 325 MG PO DAILY for Nutritional Supplement, #30 TAB 0 Refills Fish Oil-Cholecalciferol (Fish Oil + D3) 1,200-1,000 Mg-Unit Cap 1 CAP PO DAILY for Nutritional Supplement, #30 CAP 0 Refills Furosemide (Furosemide) 20 Mg Tab 20 MG PO DAILY, #30 TAB 0 Refills Potassium Chloride ER (Klor-Con 10) 10 Meq Tab 10 MEQ PO BID for Electrolyte Replacement, #60 TAB 0 Refills Bernabe Rivera DO October 09, 2017 10:51
[2017-10-09] MEDS: LORazepam 2 MG/ML VIAL IV PUSH PRN (11:12)
--- NOTE | 2017-10-09 11:27 | PD.ONC.PN ---
Subjective Subjective Remarks Afebrile overnight. multiple family members at bedside. family has made patient a DNR and are awaiting transport to hospice. patient remains on bipap. Objective Data Date Time Temp Pulse Resp B/P (MAP) Pulse Ox O2 Delivery O2 Flow Rate FiO2 10/09/17 10:00 78 10/09/17 09:00 88 10/09/17 08:30 76 10/09/17 08:07 100 100 10/09/17 08:02 96.8 91 20 89/46 (60) 100 10/09/17 07:24 100 Bi-Pap 100 10/09/17 07:00 89 10/09/17 07:00 89 10/09/17 06:00 92 10/09/17 05:06 100 100 10/09/17 04:30 99 Bi-Pap 100 10/09/17 04:00 95 10/09/17 04:00 98.2 95 20 91/46 (61) 100 10/09/17 00:00 94 10/08/17 23:29 99 100 10/08/17 22:23 30 10/08/17 22:05 99 36 87/46 (60) 96 10/08/17 20:11 96 10/08/17 20:11 98.0 96 28 93/42 (59) 94 10/08/17 19:00 94 Bi-Pap 100 10/08/17 18:12 91 10/08/17 18:00 98 10/08/17 17:00 96 10/08/17 16:00 97.6 100 36 146/70 (95) 91 10/08/17 16:00 94 10/08/17 15:00 100 10/08/17 14:03 94 100 10/08/17 14:00 97.8 101 34 131/60 (83) 93 10/08/17 14:00 100 10/08/17 13:45 97.8 101 36 146/67 (93) 92 10/08/17 13:33 32 10/08/17 13:30 100 32 137/64 10/08/17 13:30 97.6 100 34 149/70 (96) 91 10/08/17 13:15 97.4 100 32 137/64 (88) 90 10/08/17 13:00 100 10/08/17 12:00 97.8 106 28 151/72 (98) 90 10/08/17 12:00 106 10/09/17 10/09/17 10/09/17 06:59 14:59 22:59 Intake Total 0 ml Output Total 100 ml Balance -100 ml Result Diagram: 10/07/17 1552 10/07/17 1552 Administered Medications Medications (Trade) Dose Ordered Sig/Yulissa Route PRN Reason Start Time Stop Time Status Last Admin Dose Admin Sodium Chloride (NS Flush) 2 ml BID IV FLUSH 10/05/17 21:00 10/09/17 09:20 Senna/Docusate Sodium (Kailee-Colace) 1 tab BID PO 10/05/17 21:00 10/07/17 09:25 Azithromycin 500 mg/Sodium Chloride 250 ml @ 250 mls/hr Q24H IV 10/06/17 14:00 10/08/17 13:43 Albuterol/ Ipratropium (Duoneb Neb) 1 ampule Q2HR NEB PRN NEB SOB/WHEEZING 10/05/17 13:45 10/06/17 14:39 Allopurinol (Zyloprim) 100 mg DAILY PO 10/06/17 09:00 10/08/17 08:05 Amlodipine Besylate (Norvasc) 2.5 mg DAILY PO 10/06/17 09:00 10/08/17 08:05 Levothyroxine Sodium (Synthroid) 100 mcg DAILY@0600 PO 10/06/17 06:00 10/08/17 05:18 Montelukast Sodium (Singulair) 10 mg HS PO 10/05/17 21:00 10/05/17 21:44 Fluticasone Propionate (Flonase Francisco Spr) 1 spray DAILY NASAL 10/06/17 09:00 10/07/17 09:27 Alprazolam (Xanax) 0.5 mg Q6H PRN PO anxiety/ agitation 10/05/17 17:30 10/08/17 05:18 Albuterol/ Ipratropium (Duoneb Neb) 1 ampule Q4HR NEB NEB 10/06/17 16:00 10/08/17 10:39 Methylprednisolone Sodium Succinate (SoluMEDROL INJ) 40 mg Q6HR IV PUSH 10/06/17 18:00 10/09/17 06:01 Vancomycin HCl 750 mg/Sodium Chloride 250 ml @ 250 mls/hr Q24H IV 10/07/17 10:00 10/08/17 10:00 Epoetin Bob (Epogen Inj) 40,000 units MoWeFr SQ 10/08/17 09:00 10/08/17 12:12 Morphine Sulfate (Morphine Inj) 3 mg Q1H PRN IV PUSH pain/sob 1-5 10/08/17 16:00 10/08/17 17:30 Morphine Sulfate (Morphine Inj) 4 mg Q6HR IV PUSH 10/08/17 18:00 10/09/17 06:01 Lorazepam (Ativan Inj) 2 mg Q2H PRN IV PUSH anxiety/sob/tachypnea #6-10 10/08/17 17:45 10/09/17 11:12 Objective Remarks GENERAL: elderly frail female, supine in bed, on bipap. SKIN: Warm and dry. HEAD: Normocephalic. EYES: No injection or drainage. NECK: Supple, trachea midline. CARDIOVASCULAR: +S1/S2, bradycardic. RESPIRATORY: course, scattered rhonchi anteriorly, on bipap. GASTROINTESTINAL: Abdomen nondistended. Assessment/Plan Problem List: (1) Bilateral pneumonia ICD Codes: J18.9 - Pneumonia, unspecified organism Status: Acute Plan: 10/09: patient's family has made patient a DNR and patient is awaiting transport to hospice. continue comfort measures only. --Chest x-ray on 10/07 shows worsening infiltrates --Infectious disease following --Patient on vancomycin, cefepime, azithromycin, Tamiflu, 40 mg Solu-Medrol every 6 hours and DuoNeb's (2) CLL (chronic lymphocytic leukemia) ICD Codes: C91.90 - Lymphoid leukemia, unspecified not having achieved remission Plan: Patient was originally diagnosed in 1994 with chronic lymphocytic leukemia..Her initial treatment consisted of chlorambucil tablets. Patient was recommended systemic therapy with ibrutinib in 2016 however she had difficulty tolerating due to side effects. She was placed back on chlorambucil until her disease progressed and she was transitioned to low-dose weekly Rituxan. Unfortunately in August 2017 she was noted to have progressive disease and received the addition of idelalisib but had trouble tolerating this due to worsening chills and fever. Assessment 87-year-old female with history of CLL admitted with pneumonia Attending Statement The exam, history, and the medical decision-making described in the above note were completed with the assistance of the mid-level provider. I reviewed and agree with the findings presented. I attest that I had a [id number] encounter with the patient on the same day, and personally performed and documented my assessment and findings in the medical record. Pt is on Bipap, can not be weaned off. she is sedated and appears comfortable. Events of her admission reviewed and discuss with multiple family members including son (POA). Pt is not improving inspite of maximal medical therapy. They do not want pt to see like that. They want her to be comfortable and let the nature take it course. I advice transfer to hospice care center. They all agreed. consult hospice for [facility] D/W RN and Dr Walker. prognosis is very poor. I do not see that she can recover from this. She is 87 yrs old and she has rapidly decline in last 1-2 months, Problem Qualifiers (1) Bilateral pneumonia: Qualified Codes: J18.9 - Pneumonia, unspecified organism Dona Will October 09, 2017 11:27 Jacob Del Rosario MD October 09, 2017 14:58
--- NOTE | 2017-10-09 12:18 | HHI.PR ---
Subjective Remarks Sedated and tachypneic. On BIPAP 25/09, FIO2 100%. Will go to hospice today. Objective Vital Signs Date Time Temp Pulse Resp B/P (MAP) Pulse Ox O2 Delivery O2 Flow Rate FiO2 10/09/17 12:01 58 10/09/17 11:30 97.0 52 22 71/33 (46) 100 10/09/17 11:00 89 10/09/17 10:00 78 10/09/17 09:00 88 10/09/17 08:30 76 10/09/17 08:07 100 100 10/09/17 08:02 96.8 91 20 89/46 (60) 100 10/09/17 07:24 100 Bi-Pap 100 10/09/17 07:00 89 10/09/17 07:00 89 10/09/17 06:00 92 10/09/17 05:06 100 100 10/09/17 04:30 99 Bi-Pap 100 10/09/17 04:00 95 10/09/17 04:00 98.2 95 20 91/46 (61) 100 10/09/17 00:00 94 10/08/17 23:29 99 100 10/08/17 22:23 30 10/08/17 22:05 99 36 87/46 (60) 96 10/08/17 20:11 96 10/08/17 20:11 98.0 96 28 93/42 (59) 94 10/08/17 19:00 94 Bi-Pap 100 10/08/17 18:12 91 10/08/17 18:00 98 10/08/17 17:00 96 10/08/17 16:00 97.6 100 36 146/70 (95) 91 10/08/17 16:00 94 10/08/17 15:00 100 10/08/17 14:03 94 100 10/08/17 14:00 97.8 101 34 131/60 (83) 93 10/08/17 14:00 100 10/08/17 13:45 97.8 101 36 146/67 (93) 92 10/08/17 13:33 32 10/08/17 13:30 100 32 137/64 10/08/17 13:30 97.6 100 34 149/70 (96) 91 10/08/17 13:15 97.4 100 32 137/64 (88) 90 10/08/17 13:00 100 I/O 10/08/17 10/08/17 10/08/17 10/09/17 10/09/17 10/09/17 07:00 15:00 23:00 07:00 15:00 23:00 Intake Total 200 ml 1311 ml 0 ml Output Total 100 ml 600 ml 100 ml Balance 100 ml 711 ml -100 ml Intake Oral 100 ml 60 ml 0 ml IV Total 100 ml 1251 ml Output Urine Total 100 ml 600 ml 100 ml # Voids 1 # Bowel Movements 0 0 Result Diagram: 10/07/17 1552 10/07/17 1552 Objective Remarks GENERAL: This is a thinly built, elderly white female who is pale and tachypneic. HEENT: Head is normocephalic. Pupils reactive. Tongue was dry. NECK: Supple. No lymphadenopathy. No bruits or thyroid enlargement. LUNGS: Decreased breath sounds to the periphery with coarse wheezes bilaterally with basilar crackles. HEART: The heart sounds are regular, S1, S2 with no definite murmur. ABDOMEN: Soft, nontender. There is no organomegaly. Bowel sounds are active. EXTREMITIES: No edema. No skin lesions. NEUROLOGIC: sedated. SKIN: Dry and cool. Assessment and Plan Assessment and Plan IMPRESSION: 1. Bilateral pneumonia with hypoxemia. 2. History of chronic lymphocytic leukemia on therapy. 3. Anemia. 4. Possible sepsis. 5. Probable aspiration. Plan : 1. Continue on BIPAP15/5 CM, and wean FIo2 2. Antibiotics per ID. 3 Transfer to hospice today 4. Nebs qid , Duoneb 5. NPO. 6. D/C IV meds 7. Ativan .5 mg Q6H prn Apollo Hughes MD October 09, 2017 12:18
[2017-10-09] MEDS ORDERED: MORPHINE SULFATE 4 MG/ML INJ IV PUSH PRN ×2 (13:00)
--- NOTE | 2017-10-09 18:33 | HHI.HCPN ---
Reason for visit a. To assist with evaluation and management of symptoms including: dyspnea ; agitation b. To assist medical decision maker(s) with: better understanding of current medical conditions; weighing benefits/burdens of medical treatment options; making medical treatment decisions. . Subjective/Interval History Patient seen this AM. Case discussed via phone with Drs. Montero and Dr. Del Rosario. Collaborated with primary nurse. Patient appeared comfortable to nursing staff overnight. Scheduled meds appeared to keep her comfortable without need for PRN. Remains on BiPAP. Now that she is relaxed and more comfortable, 02 sats are in the high 90s. Family members have been by bedside. They agree that she seems comfortable. Dr. Del Rosario had round prior to my visit. He agrees that patient's chances for a meaningful recovery are slim and feels there is no real role for ongoing leukemia directed treatments at this time. He spoke with all 3 children and they have now agreed to forego further cancer directed treatments; transition to comfort measures only; and enroll patient in hospice with plans to move her to a hospice inpatient facility to help manage her respiratory distress and wean her from the BiPAP. The three children are at the bedside at the time of my visit. We once again review the options, discuss her poor prognosis, discuss the advantages of hospice care, and I answer questions. They continue to agree with hospice plan. . Family/friend interactions See above. 20 minute talk with the three children at bedside. . Advance Directives Living Will: Completed, but not made available Health Care Surrogate: Completed, but not made available Durable Power of [employer]er: Never completed Advance Directive Specifics Date completed: 01/23/2016 . Health Care Surrogate(s): Health care surrogate is her son -- Geovanny Paige Alternate health care surrogate is daughter -- Randa Solorzano . Documented care wishes: Patient has completed a special Living Will for [employer] that emphasizes her wish not to be given transfusions of whole blood, red cells, white cells, platelets, or plasma. In addition, it is also a typical living will indicating she would NOT want life prolonging measures if she were found to have a terminal or end stage condition. . Significant change in goals: Family opting to enroll patient in hospice, discharge her to a hospice care center, and remove BiPAP in that facility. . Objective Vital Signs Date Time Temp Pulse Resp B/P (MAP) Pulse Ox O2 Delivery O2 Flow Rate FiO2 10/09/17 13:00 56 10/09/17 12:15 58 28 71/87 (82) 100 10/09/17 12:01 58 10/09/17 11:30 97.0 52 22 71/33 (46) 100 10/09/17 11:00 89 10/09/17 10:00 78 10/09/17 09:00 88 10/09/17 08:30 76 10/09/17 08:07 100 100 10/09/17 08:02 96.8 91 20 89/46 (60) 100 10/09/17 07:24 100 Bi-Pap 100 10/09/17 07:00 89 10/09/17 07:00 89 10/09/17 06:00 92 10/09/17 05:06 100 100 10/09/17 04:30 99 Bi-Pap 100 10/09/17 04:00 95 10/09/17 04:00 98.2 95 20 91/46 (61) 100 10/09/17 00:00 94 10/08/17 23:29 99 100 10/08/17 22:23 30 10/08/17 22:05 99 36 87/46 (60) 96 10/08/17 20:11 96 10/08/17 20:11 98.0 96 28 93/42 (59) 94 10/08/17 19:00 94 Bi-Pap 100 Intake & Output 10/09/17 10/09/17 07:00 19:00 Intake Total 745 ml Output Total 100 ml Balance 645 ml Intake Oral 0 ml IV Total 745 ml Output Urine Total 100 ml # Bowel Movements 0 . Physical Exam CONSTITUTIONAL/GENERAL: This is a frail appearing elderly female now comfortable appearing on BiPAP in the cardiac stepdown unit. She stirs to voice /exam but does not awaken. No obvious distress. TUBES/LINES/DRAINS: BiPAP mask; peripheral IVs; SCDs SKIN: No jaundice, rashes, or lesions. Scattered ecchymoses. No wounds seen anteriorly. Skin temperature appropriate. Not diaphoretic. EYES: Pupils equal and round. . Cannot evaluate extraocular motions. No scleral icterus. No injection or drainage. Fundi not examined. ENT: Nose without bleeding or purulent drainage. Throat without visible erythema, exudates, masses, or lesions though difficult to assess due to need for BiPAP mask NECK: Trachea midline. CARDIOVASCULAR: Regular rate and rhythm without murmurs, gallops, or rubs. No JVD. Peripheral pulses symmetric. RESPIRATORY/CHEST: On BiPAP -- breathing more relaxed; minimal use of accessory muscles. Significantly diminished air movement bilaterally worse at bases and worse on right. No audible wheezing. GASTROINTESTINAL: Abdomen soft, non-tender, nondistended. No hepato-splenomegaly , or palpable masses. No guarding. Bowel sounds hypoactive. GENITOURINARY: Without palpable bladder distension. MUSCULOSKELETAL: Extremities without clubbing, cyanosis, or edema. No mottling or clubbing. LYMPHATICS: Not examined. NEUROLOGICAL: Stirs to voice/exam, but does not awaken. PSYCHIATRIC: Unable to assess due to level of responsiveness. . Diagnostic Tests Laboratory Laboratory Tests Test 10/07/17 06:48 10/07/17 09:41 10/07/17 15:52 10/08/17 10:30 Random Vancomycin Level 8.8 COMMENT Adenovirus (PCR) NOT DETECTED (NOT DETECT) Bordetella holmesii (PCR) NOT DETECTED (NOT DETECT) Bordetella pertussis DNA (PCR) NOT DETECTED (NOT DETECT) B. parapertussis/bronchi (PCR) NOT DETECTED (NOT DETECT) Human Metapneumovirus (PCR) NOT DETECTED (NOT DETECT) Influenza Type A (RT-PCR) NOT DETECTED (NOT DETECT) Influenza Type A (H1) (PCR) NOT DETECTED (NOT DETECT) Influenza Type A (H3) (PCR) NOT DETECTED (NOT DETECT) Influenza Type B (RT-PCR) NOT DETECTED (NOT DETECT) Parainfluenza Type 1 (PCR) NOT DETECTED (NOT DETECT) Parainfluenza Type 2 (PCR) NOT DETECTED (NOT DETECT) Parainfluenza Type 3 (PCR) NOT DETECTED (NOT DETECT) Parainfluenza Type 4 (PCR) NOT DETECTED (NOT DETECT) Resp Syncytial Virus Type A (PCR) NOT DETECTED (NOT DETECT) Resp Syncytial Virus Type B (PCR) NOT DETECTED (NOT DETECT) Rhinovirus (PCR) NOT DETECTED (NOT DETECT) White Blood Count 87.3 TH/MM3 (4.0-11.0) Red Blood Count 2.55 MIL/MM3 (4.00-5.30) Hemoglobin 8.4 GM/DL (11.6-15.3) Hematocrit 26.7 % (35.0-46.0) Mean Corpuscular Volume 104.5 FL (80.0-100.0) Mean Corpuscular Hemoglobin 32.9 PG (27.0-34.0) Mean Corpuscular Hemoglobin Concent 31.5 % (32.0-36.0) Red Cell Distribution Width 18.0 % (11.6-17.2) Platelet Count 65 TH/MM3 (150-450) Mean Platelet Volume 9.5 FL (7.0-11.0) CBC Comment AUTO DIFF Differential Total Cells Counted 100 Neutrophils % (Manual) 13 % (16-70) Lymphocytes % 85 % (9-44) Monocytes % 2 % (0-8) Neutrophils # (Manual) 11.3 TH/MM3 (1.8-7.7) Differential Comment FINAL DIFF MANUAL Smudge Cells PRESENT Toxic Granulation 2+ (NORMAL) Platelet Estimate LOW (NORMAL) Platelet Morphology Comment NORMAL (NORMAL) Blood Urea Nitrogen 34 MG/DL (7-18) Creatinine 1.07 MG/DL (0.50-1.00) Random Glucose 115 MG/DL (74-106) Calcium Level 8.2 MG/DL (8.5-10.1) Sodium Level 145 MEQ/L (136-145) Potassium Level 4.1 MEQ/L (3.5-5.1) Chloride Level 114 MEQ/L (98-107) Carbon Dioxide Level 21.7 MEQ/L (21.0-32.0) Anion Gap 9 MEQ/L (5-15) Estimat Glomerular Filtration Rate 48 ML/MIN (>89) Immunoglobulin G Total 207 MG/DL (650-1610) . Result Diagram: 10/07/17 1552 10/07/17 1552 Microbiology Microbiology Date/Time Source Procedure Growth Status 10/05/17 11:25 Blood Peripheral Aerobic Blood Culture - Preliminary NO GROWTH IN 4 DAYS Resulted 10/05/17 11:25 Blood Peripheral Anaerobic Blood Culture - Preliminary NO GROWTH IN 4 DAYS Resulted 10/05/17 11:15 Nasal Aspirate Influenza Types A,B Antigen (JORGE) - Final NEGATIVE FOR FLU A AND B ANTIGEN.... Complete 10/05/17 16:35 Urine Random Urine Legionella Antigen - Final PRESUMPTIVE NEGATIVE FOR LEGIONELLA P... Complete 10/05/17 16:35 Urine Random Urine Streptococcus pneumoniae Antigen (M - Final PRESUMPTIVE NEGATIVE FOR STREPTOCOCCU... Complete . Imaging Last Impressions Chest X-Ray 10/07/17 0000 Signed Impressions: CONCLUSION: Worsening bilateral pulmonary infiltrates. . Procedures BiPAP . Assessment and Plan Disease Oriented Problem List: (1) CLL (chronic lymphocytic leukemia) (2) Bilateral pneumonia (3) PATRICK (acute kidney injury) (4) Anemia (5) Hypoxia Symptom Scale: Pertinent Non-Medical Issues Psychosocial: . Well supported by 3 children who live locally. Spiritual: [employer]an. Church and spirituality are an important part of her life. Spiritually supported by her own congregations. Legal: Advance directives are in place and scanned into EMR Ethical issues impacting care: Patient is incapacitated. It is unlikely she will regain capacity. . Important Contacts Geovanny Paige (son and health care surrogate) Randa Jarett (daughter and alternate surrogate) [phone] . Prognosis Patient has progressive leukemia and has had an increasingly difficult time tolerating medications. She now has bilateral pneumonia and is in respiratory distress. She does not want to be intubated. Prognosis is grim even with aggressive care. She is clearly a candidate for hospice care at such time that her goals become primarily comfort oriented. With comfort care only, life expectancy is in the order of hours to days. Code Status: No Code Plan == Code Status: NO CODE == Decision Making: Patient is incapacitated to make her own health care decisions. It is unlikely that she will regain capacity to make her own health care decisions in the future. While incapacitated, her son -- Geovanny -- is the designated health care surrogate. == Goals of medical treatment: Patient is unable to provider her own goals of medical treatment at this time. The health care surrogate, as well as the remaining two siblings, all agree to forego further aggressive care, transiton to comfort measures only, and transfer patient to the hospice care center for withdrawal of BiPAP. == Symptoms * Dyspnea: Patient has been in respiratory distress with use of accessory muscles and agitation while on the BiPAP. I increased comfort meds on 10/08/17 with good results. * Agitation: Probably secondary to level of dyspnea and reaction to the BiPAP mask. Much improved after up-titration of comfort meds. * Pain: Mostly just arthritis type pain which have not required opiate analgesics at home. == I personally discussed case with hospice nurse, introduced hospice nurse to family, answered questions. == Palliative care will continue to follow to assist with symptom management and to further clarify goals of medical treatment as the clinical course evolves. . . Time Spent Total Floor Time (mins): 45 (Total floor time was 45 minutes including chart review; patient exam; discussion of case with both Drs. Montero and Miguel Ángel; collaboration with primary nurse; case discussion with hospice admissions nurse ; bedside discussion with patient's three children.) Face to Face Time (mins): 20 >50% Counseling/Coord of Care: Yes Attestation To help prompt me to consider important information that might be impacting today's encounter and assessment, information from prior notes written by myself or my colleagues may have been "brought forward" into today's note. My signature on this note, however, is an attestation that I personally performed the exam, history, and/or decision-making noted today, and, unless otherwise indicated, the interactions with patient, family, and staff as well as the review of records all occurred today. I also attest that the listed assessment and stated plan reflect my best clinical judgment today based on the combination of historical information, prior notes, and today's exam/ interactions. When time spent is documented, it refers only to time spent today by the signer, or if indicated, combined time spent today by collaborating physician/nurse practitioner. . Adrian Walker MD October 09, 2017 18:33
== END 2017-10-09 13:36 | disposition hospice, inpatient (51) | DRG 871 ==
LOC: NEPE 10:33 → NEDA 13:34 → NEDH 16:03 → N05A 18:13 → HCIS 10-06 18:42
PROVIDERS: ADMIT Hospitalist; ATTEND Hospitalist
PROC: 5A09457 Assistance with Respiratory Ventilation, 24-96 Consecutive Hours, Continuous Positive Airway Pressure (ICD-10-PCS; principal; 2017-10-06)
DX: A41.9 Sepsis, unspecified organism (principal); J18.9 Pneumonia, unspecified organism; J96.01 Acute respiratory failure with hypoxia; D61.89 Other specified aplastic anemias and other bone marrow failure syndromes; N17.9 Acute kidney failure, unspecified; E87.2 Acidosis; C91.10 Chronic lymphocytic leukemia of B-cell type not having achieved remission; R54 Age-related physical debility; R65.20 Severe sepsis without septic shock; M19.90 Unspecified osteoarthritis, unspecified site; N18.9 Chronic kidney disease, unspecified; I12.9 Hypertensive chronic kidney disease with stage 1 through stage 4 chronic kidney disease, or unspecified chronic kidney disease; E03.9 Hypothyroidism, unspecified; I73.9 Peripheral vascular disease, unspecified; M81.0 Age-related osteoporosis without current pathological fracture; M10.9 Gout, unspecified; F41.9 Anxiety disorder, unspecified; Z51.5 Encounter for palliative care; Z53.1 Procedure and treatment not carried out because of patient's decision for reasons of belief and group pressure; Z66 Do not resuscitate; Z77.22 Contact with and (suspected) exposure to environmental tobacco smoke (acute) (chronic); Z86.73 Personal history of transient ischemic attack (TIA), and cerebral infarction without residual deficits; Z88.0 Allergy status to penicillin
CPT/HCPCS: 36600; 71045; 76937; 80048; 80053; 80202; 82550; 82728; 82784; 82805; 83010; 83540; 83550; 83605; 83615; 83735; 83880; 84484; 85007; 85027; 85610; 85730; 87040; 87449; 87633; 87804; 93005; 94003; 94640; 94664; 96365; J0456; J0692; J1459; J1644; J1756; J1940; J2060; J2270; J2920; J3370; J7030; J7050; J7060; Q4081